=== PATIENT | female | born 1945 | race Caucasian/White ===

== ENCOUNTER → 2016-08-27 | Outpatient (CLI) | payer OTHER, MEDICAID ==
[2015-03-04 15:05] VITALS: BP 124/58
[~2016-08-27] MED LIST: ACET325T9 PO; AMIT25TA PO; AMLO10TA2 PO; ASPI-482 PO; ASPI81TA9 PO; Albuterol Sulfate NEB; BUPR1PAT TD; BUPR1PAT9 TD; Baclofen PO; CARV25TA2 PO; DICL100G7 TP; DOCU-27 PO; DULO30CA2 PO; DULO60CA6 PO; Doxycycline Hyclate PO; FURO-68 PO; Fentanyl TD; GABA-586 PO; GABA600T2 PO; Hydrochlorothiazide PO; LEVO500T38 PO; LIDO700A4 TD; LISI-334 PO; MAGN400T3 PO; METF10002 PO; MULT-208 PO; OXYC10TA PO; OXYC5TAB PO; OXYC5TAB88 PO; POTA10CA PO; Polyethylene Glycol 3350 PO; SENN-37 PO; TRIA1CAP PO; ZINC30OI TP
--- NOTE | 2016-08-27 11:09 | PAIN ---
DATE OF SERVICE: 08/27/2016 INITIAL CONSULTATION FOR PAIN CLINIC CHIEF COMPLAINT: Neck and bilateral shoulder and upper extremity pain. HISTORY OF PRESENT ILLNESS: This is a 70-year-old female who presents with history of pain for many years, gradually increasing, not a result of any specific injury or action she is aware of, did have cervical fusion from C3-C7 by her report many years ago. The patient is unsure of the timeframe, but has had significant pain now increasing over the past year, most specifically worse over the past few months. The patient reports no recent injury. She reports pain in the base of the neck, posterior upper back, shoulders bilaterally, worse on the right than the left, but radiating into the arm and hand with tingling and numbness sensations bilaterally, but worse on the right. She has been dropping items and having some tremors in the arms and hands too when the pain is at its worst and causing her to drop things as well. The patient reports it awakens her from sleep at least 5-6 times at night, does not affect her bowel or bladder control, does affect her ability to walk using a walker. She is unable to put much weight on her upper extremities as they are aching and hurting. The patient reports pain radiating into the mid upper back as well, which is better with some heat and massage techniques that she has been using. The patient is currently a resident of the [facility] after she had a hip surgery and is still rehabilitating there at this time. The patient reports the pain is constant and shooting in the bilateral upper extremities, also causes some headaches. The patient reports disability rating from 0 to 10 as a 9 with family and home responsibilities, recreation, social activity and occupation, 10 with sexual behavior, 10 with self care and life support activities. The patient has tried oxycodone as well as hydrocodone. Oxycodone does help, but it causes her to sleep, for sometimes 8-10 hours at a time. The patient has had no other formal therapies at this point, physical therapies or otherwise. The patient reports no complete loss of motor function, but does have significant fatigability of the right upper extremity and the left side with fine motor movements and use of the upper extremities. PAST MEDICAL HISTORY: Significant for type 2 diabetes; history of right breast cancer, status post radiation and chemotherapy; hypertension, arthritis, fibromyalgia, depression, stage II kidney disease. PREVIOUS SURGERY: Includes total knee on the right, mastectomy on the right, right hip fracture in 09/2015, bilateral cataract extractions and interbody fusion and cervical laminectomy C3 through C7. CURRENT MEDICATIONS: Well documented on the patient's chart and reviewed. ALLERGIES: The patient is allergic to ASPIRIN, TRAZODONE, DARVON, MORPHINE and SULFONAMIDES. FAMILY HISTORY: Significant for diabetes. SOCIAL HISTORY: The patient does not smoke, does not drink alcohol, is , currently staying at the [facility]. Her son, who lives in [place], is with her today and has been taking care of her when he can as well and is her power of staff attorney. REVIEW OF SYSTEMS: The patient's review of systems is positive for those items mentioned in history of present illness. All systems reviewed and otherwise negative. It is complete, full and well documented on the patient's chart. PHYSICAL EXAMINATION: VITAL SIGNS: Today, the patient's blood pressure is 132/66, pulse 70, respirations 20, temperature 98.2 degrees Fahrenheit, height is 5 feet 7 inches, weighs 179 pounds. GENERAL: The patient is awake, alert, oriented, appropriate, very pleasant demeanor. The patient initially sitting upright in a wheelchair. HEENT: Shows normocephalic and atraumatic. Extraocular movements are intact and symmetrical. Oral cavity shows mucous membranes moist and pink. NECK: Shows anterior throat supple without palpable lymphadenopathy noted. Swallow reflex is symmetrical. CHEST: Shows normal on inspection. Breath sounds clear to auscultation bilaterally. HEART: Shows S1 and S2 clear. ABDOMEN: Soft, nontender, nondistended. BACK: The patient's back shows spine grossly in the midline. Normal-appearing cervical lordotic curvature, thoracic kyphotic curvature, and lumbar lordotic curvature. Cervical paraspinous musculature shows some moderate tenderness throughout the upper, middle and lower distribution of paraspinous muscles bilaterally as well as superior, medial and lateral trapezius somewhat more tender on the right than the left, but symmetrical without evidence of atrophy, hypertrophy, no trigger points, no radiation of pain, very firm, tender musculature throughout the rhomboid distribution bilaterally as well as supra and infrascapular regions and the upper thoracic distribution of the paraspinous muscles diffusely tender again. No specific trigger points or radiation demonstrated. The patient has significantly limited rotational motion of the cervical spine, less than 10 degrees right and left with pain reported with all rotation and motion, especially extension and as well as forward flexion which is limited to only about 30 degrees and about 10 degrees with extension secondary to pain. Upper extremities showed deep tendon reflexes at 1+ in the biceps and triceps tendons and are equal. Motor exam is approximately 4 on a scale of 5 with medication aid strength, but is symmetrical and is 4/5 with biceps and triceps flexion, but is intact and strong bilaterally. Shoulder shrug is strong with pain reported with resistance, but no loss of strength. Abduction of the shoulder to 90 degrees is completed without significant difficulty abducting to 90 degrees, but with significant pain reported more on the right shoulder than the left with resistance, but no loss of strength on resistance. Peripheral pulses are 1+ in the radial distribution bilaterally. The patient has significant lymphedema of the right forearm and hand compared to the left from previous breast surgery on the right. IMPRESSION: 1. This is a 70-year-old female with a long history of neck, bilateral upper extremity pain, status post lumbar fusion multilevel as documented and radicular pain in the bilateral upper extremities, right greater than left. 2. MRI scan of the cervical spine showing diffuse narrowing throughout distal recess stenosis, on the left at C5-C6, on the right at C6-C7 and C4-C5, stenosis at T1. Multilevel anterior fusion C3 through C7 with interbody fusion at these levels and multiple neural foraminal compromise as well. 3. Type 2 diabetes. 4. History of breast cancer. 5. Hypertension. 6. Arthritis. PLAN: Options were discussed with the patient and the patient's son, who accompanied her to the visit today and we discussed interventional techniques for physical therapies, medication management. She would like to try interventional techniques. We discussed a cervical epidural steroid injection using description as well as anatomical models to describe the procedure. The patient would like to proceed with this. We will wait for preauthorization with her insurance provider. We will try Medrol Dosepak orally in the meantime. The patient was given instruction as well as side effects to be aware with medication. Also, I discussed this with her son and wrote the medicine and instructions for the [facility] as well. The patient will return to clinic once preauthorization is obtained and we will plan on cervical epidural steroid injection at that time. JAQUELINE FULLER MD DR: Haven JOB#: [id number] / [id number]
== END | disposition home or self-care (01) ==
LOC: PNCL 08:15
PROVIDERS: ATTEND Anesthesiology
DX: M25.512 Pain in left shoulder (principal); M25.511 Pain in right shoulder
CPT/HCPCS: G0463

== ENCOUNTER 2016-11-20 18:32 | Inpatient (IN) | payer OTHER ==
[~2016-11-20] VITALS: Ht 170.2 cm; Wt 71.4 kg
[~2016-11-20 18:32] MED LIST changes: +CARV6.252 PO; +CIPR250T30 PO; +DOCU100C5 PO; +NYST60PO TP; +OXYC5CAP3 PO
[2016-11-20 20:11] LABS: BASO # 0.1 x10^3/uL (0.0-0.2); BASO % 1 % (0-3); EOS % 0 % (0-3); HEMATOCRIT 41.9 % (36.0-47.0); HEMOGLOBIN 13.4 g/dL (12.0-15.5); LYMPH # 0.8 x10^3/uL (1.0-4.8); LYMPH % 8 % (24-48); MEAN CORPUSCULAR HEMOGLOBIN 26 pg (25-35); MEAN CORPUSCULAR HGB CONC 32 g/dL (31-37); MEAN CORPUSCULAR VOLUME 82 fL (79-100); MONO % 9 % (0-9); NEUT % 82 % (31-73); PLATELET COUNT 173 x10^3/uL (140-400); RED BLOOD COUNT 5.11 x10^6/uL (3.50-5.40); RED CELL DISTRIBUTION WIDTH 16.2 % (11.5-14.5)
[2016-11-20 20:12] LABS: BILIRUBIN,URINE NEGATIVE (NEG); GLUCOSE,URINE NEGATIVE (NEG); NITRITE,URINE NEGATIVE (NEG); PROTEIN,URINE 30 mg/dL (NEG-TRACE); UROBILINOGEN,URINE 0.2 mg/dL (0.2 mg/dL)
[2016-11-20 20:18] LABS: BACTERIA,URINE MANY /HPF (0-FEW); SQUAMOUS EPITHELIAL CELL,UR MANY /LPF
[2016-11-20 20:22] LABS: CALCIUM 9.1 mg/dL (8.5-10.1); CREATININE 0.9 mg/dL (0.6-1.0); GFR 61.5; POTASSIUM 4.9 mmol/L (3.5-5.1)
[2016-11-20 20:28] LABS: ALBUMIN 2.8 g/dL (3.4-5.0); ALBUMIN/GLOBULIN RATIO 0.7 (1.0-1.7); TOTAL BILIRUBIN 0.7 mg/dL (0.2-1.0); TOTAL PROTEIN 6.6 g/dL (6.4-8.2)
[2016-11-20] MEDS ORDERED: CEFTRIAXONE 1GM IVPB FOR OMNI 50 ML IV ONE (21:30)
--- NOTE | 2016-11-20 21:49 | ED.ADGEN ---
Past Medical History Past Medical History: Cancer, Diabetes-Type II, High Cholesterol, Hypertension , [place], Other Additional Past Medical Histor: BREAST CA Past Surgical History: Hysterectomy, Other Additional Past Surgical Histo: BREAST LUMPECTOMY LEFT, TWO NECK SURGERIES Alcohol Use: None Drug Use: None Adult General Chief Complaint Chief Complaint: ABDOMINAL PAIN HPI HPI Patient is a 70 year old female presents emergency Department accompanied by her family. She is been recently diagnosed with a pneumonia. She has completed her course of antibiotics but continues to require oxygen to experience dyspnea. Patient also reports that she is had a month-long history of diffuse abdominal pain. She denies any fevers, chills, nausea, vomiting. She denies constipation or diarrhea. Review of Systems Review of Systems Constitutional: Denies fever or chills. [] Eyes: Denies change in visual acuity. [] HENT: Denies nasal congestion or sore throat. [] Respiratory: Denies cough or shortness of breath. [] Cardiovascular: Denies chest pain or edema. [] GI: Denies abdominal pain, nausea, vomiting, bloody stools or diarrhea. [] : Denies dysuria. [] Musculoskeletal: Denies back pain or joint pain. [] Integument: Denies rash. [] Neurologic: Denies headache, focal weakness or sensory changes. [] Endocrine: Denies polyuria or polydipsia. [] Lymphatic: Denies swollen glands. [] Psychiatric: Denies depression or anxiety. [] Current Medications Current Medications Current Medications Medications (Trade) Dose Ordered Sig/Kianna Start Time Stop Time Status Last Admin Dose Admin Ceftriaxone Sodium (Rocephin 1gm Ivpb For Omni) 50 ml @ 100 mls/hr 1X ONCE 11/20/16 21:30 11/20/16 21:59 11/20/16 21:23 100 MLS/HR Oxycodone/ Acetaminophen (Percocet 10/325) 1 tab 1X ONCE 11/20/16 22:00 11/20/16 22:01 Allergies Allergies Allergies Coded Allergies Type Severity Reaction Last Updated Verified Sulfa (Sulfonamide Antibiotics) Allergy Intermediate 04/19/14 Yes aspirin Allergy Intermediate 02/24/15 Yes morphine Allergy Intermediate 02/24/15 Yes trazodone Allergy Intermediate 02/24/15 Yes I S O L A T I O N *CONTACT* Allergy Unknown 09/09/16 Yes Physical Exam Physical Exam Constitutional: Well developed, well nourished, no acute distress, non-toxic appearance. [] HENT: Normocephalic, atraumatic, bilateral external ears normal, oropharynx moist, no oral exudates, nose normal. [] Eyes: PERRLA, EOMI, conjunctiva normal, no discharge. [] Neck: Normal range of motion, no tenderness, supple, no stridor. [] Cardiovascular:Heart rate regular rhythm, no murmur [] Lungs & Thorax: Bilateral breath sounds diminished [] Abdomen: Bowel sounds normal, soft, fused tenderness to palpation without peritoneal signs, no masses, no pulsatile masses. [] Skin: Warm, dry, no erythema, no rash. [] Back: No tenderness, no CVA tenderness. [] Extremities: No tenderness, no cyanosis, no clubbing, ROM intact, no edema. [] Neurologic: Alert and oriented X 3, normal motor function, normal sensory function, no focal deficits noted. [] Psychologic: Affect normal, judgement normal, mood normal. [] Current Patient Data Vital Signs Vital Signs Date Time Temp Pulse Resp B/P Pulse Ox O2 Delivery O2 Flow Rate FiO2 11/20/16 19:09 97.7 75 18 147/84 94 Nasal Cannula 2 97.7 Lab Values Laboratory Tests Test 11/20/16 19:42 11/20/16 19:45 White Blood Count 10.0x10^3/uL (4.0-11.0) Red Blood Count 5.11x10^6/uL (3.50-5.40) Hemoglobin 13.4g/dL (12.0-15.5) Hematocrit 41.9% (36.0-47.0) Mean Corpuscular Volume 82fL (79-100) Mean Corpuscular Hemoglobin 26pg (25-35) Mean Corpuscular Hemoglobin Concent 32g/dL (31-37) Red Cell Distribution Width 16.2% (11.5-14.5) H Platelet Count 173x10^3/uL (140-400) Neutrophils (%) (Auto) 82% (31-73) H Lymphocytes (%) (Auto) 8% (24-48) L Monocytes (%) (Auto) 9% (0-9) Eosinophils (%) (Auto) 0% (0-3) Basophils (%) (Auto) 1% (0-3) Neutrophils # (Auto) 8.1x10^3uL (1.8-7.7) H Lymphocytes # (Auto) 0.8x10^3/uL (1.0-4.8) L Monocytes # (Auto) 0.9x10^3/uL (0.0-1.1) Eosinophils # (Auto) 0.0x10^3/uL (0.0-0.7) Basophils # (Auto) 0.1x10^3/uL (0.0-0.2) Sodium Level 134mmol/L (136-145) L Potassium Level 4.9mmol/L (3.5-5.1) Chloride Level 97mmol/L (98-107) L Carbon Dioxide Level 28mmol/L (21-32) Anion Gap 9 (6-14) Blood Urea Nitrogen 9mg/dL (7-20) Creatinine 0.9mg/dL (0.6-1.0) Estimated GFR (Cockcroft-Gault) 61.5 BUN/Creatinine Ratio 10 (6-20) Glucose Level 169mg/dL (70-99) H Calcium Level 9.1mg/dL (8.5-10.1) Total Bilirubin 0.7mg/dL (0.2-1.0) Aspartate Amino Transferase (AST) 28U/L (15-37) Alanine Aminotransferase (ALT) 20U/L (14-59) Alkaline Phosphatase 191U/L (46-116) H Troponin I Quantitative < 0.017ng/mL (0.000-0.055) NC-Gaf-N-Type Natriuretic Peptide 5567pg/mL (0-124) H Total Protein 6.6g/dL (6.4-8.2) Albumin 2.8g/dL (3.4-5.0) L Albumin/Globulin Ratio 0.7 (1.0-1.7) L Lipase 84U/L (73-393) Urine Collection Type Unknown Urine Color Yellow Urine Clarity Cloudy Urine pH 7.0 Urine Specific [place] 1.010 Urine Protein 30mg/dL (NEG-TRACE) Urine Glucose (UA) Negativemg/dL (NEG) Urine Ketones (Stick) Negativemg/dL (NEG) Urine Blood Moderate (NEG) Urine Nitrite Negative (NEG) Urine Bilirubin Negative (NEG) Urine Urobilinogen Dipstick 0.2mg/dL (0.2 mg/dL) Urine Leukocyte Esterase Large (NEG) Urine RBC 1-2/HPF (0-2) Urine WBC 5-10/HPF (0-4) Urine Squamous Epithelial Cells Many/LPF Urine Bacteria Many/HPF (0-FEW) Laboratory Tests 11/20/16 19:42 Laboratory Tests 11/20/16 19:42 EKG EKG [] Radiology/Procedures Radiology/Procedures Chest x-ray interpreted by me, bilateral effusions right worse than left. These are new from previous studies. [] Course & Med Decision Making Course & Med Decision Making Pertinent Labs and Imaging studies reviewed. (See chart for details) Patient has new heart failure as well as urinary tract infection. She has been given Rocephin for her infection. We will admit her to the hospital and consult cardiology for her heart failure and effusions. I have spoken with Dr. Gama regarding this patient. [] Dragon Disclaimer Dragon Disclaimer This electronic medical record was generated, in whole or in part, using a voice recognition dictation system. JOHN PAUL NELSON MD Nov 20, 2016 21:49
[2016-11-20] MEDS ORDERED: OXYCODONE/APAP 10/325 TABLET. PO ONE (22:00)
[2016-11-20 22:45] VITALS: BP 168/89
[2016-11-20] MEDS: IPRATRPIUM/ALBUTEROL 0.5/2.5MG 3 ML NEBU. NEB SCH (23:14)
[2016-11-20 23:28] VITALS: BP 162/77
--- NOTE | 2016-11-21 00:27 | ACF ---
Admit Criteria Forms Admit Criteria Forms Admit Criteria Forms HEART FAILURE: COMMON COMPLICATIONS Clinical Indications for Inpatient Care (Place 'X' for any and all applicable criteria): Ongoing inpatient care may be indicated for heart failure with ANY ONE of the following (1)(2)(3)(4)(5): [ ]I. Ongoing need for care for primary condition requiring frequent therapy adjustments because of changes in cardiac function (eg, drug dosage changes for drugs that are renally metabolized) [X]II. New-onset heart failure [ ]III. Heart failure with decreased urine output not responsive to attempts to optimize volume status [ ]IV. Acute cardiac ischemia causing or associated with failure [ ]V. Complications of heart failure, including ANY ONE of the following: [ ]a) Pericardial effusion [ ]b) Symptomatic pleural effusion [ ]c) O2 saturation <90% or PO2 < 60 mm Hg (8.0 kPa) on room air or require baseline supplemental O2 [ ]d) Tachypnea [ ]e) Dyspnea [ ]f) Syncope [ ]g) Change in mental status [ ]h) Acute renal insufficiency that is severe (reduction of more than 50% in estimated glomerular filtration rate from baseline) or progressive reduction of more than 25% in estimated glomerular filtration rate from baseline, with creatinine continuing to rise) [ ]i) Hemodynamic instability [ ]j) Anasarca [ ]k) Clinically significant metabolic abnormalities due to heart failure (eg, new-onset metabolic acidosis) Extended stay beyond goal length of stay for primary condition may be needed until ALL of the following are present(1)(3): [ ]a) Stable and effective diuretic regimen established (or patient on stable dialysis regimen if in chronic renal failure) [ ]b) Breathing comfortably at rest [ ]c) Saturation of arterial oxygen greater than 90% or at acceptable baseline [ ]d) Pulmonary edema absent or improved [ ]e) Hemodynamic stability [ ]f) Volume status acceptable on oral medication [ ]g) Peripheral or sacral edema absent or improved [ ]h) Renal function stable and manageable at a lower level of care [ ]i) Complications (eg, pleural effusion) resolved or manageable at a lower level of care [ ]j) Patient or caregiver has received written discharge instructions or educational material addressing activity level, diet, discharge medications, follow-up appointment, weight monitoring, and what to do if symptoms worsen The original [employer] content created by Dmitry Murphy has been revised. The portions of the content which have been revised are identified through the use of italic text or in bold, and Dmitry Murphy has neither reviewed nor approved the modified material.All other unmodified content is copyright Dmitry Murphy. Please see references footnoted in the original [facility] edition 2016 ONIEL MARY Nov 21, 2016 00:27
[2016-11-21 03:26] VITALS: BP 135/77
[2016-11-21 07:38] VITALS: BP 152/78
[2016-11-21] MEDS: OXYCODONE IR 5 MG TABLET. PO SCH ×2 (07:43→14:18)
[2016-11-21] MEDS: IPRATRPIUM/ALBUTEROL 0.5/2.5MG 3 ML NEBU. NEB SCH ×4 (07:49→20:46)
--- NOTE | 2016-11-21 08:35 | RAD ---
EXAM: Chest, lateral view; abdomen acute complete. HISTORY: Dyspnea. COMPARISON: 09/07/2016. FINDINGS: A frontal upright view of the chest and frontal upright and supine views of the abdomen and a lateral view of the chest are obtained. There are moderate right and small left pleural effusions. There is bilateral lower lobe atelectasis or infiltrate. The heart is upper normal in size. There is no pneumothorax. There is cervical spinal fusion instrumentation. There are right axillary clips. There is gas within the stomach and nondistended loops of small and large bowel. There is no transition point to suggest obstruction. There is no intraperitoneal free air. There is an approximately 4.0 cm radio density overlying the right upper quadrant, best seen on the abdomen upright view. There is no correlate on prior studies, favoring artifact overlying the patient rather than pulmonary or hepatic calcification. IMPRESSION: 1. Moderate right and small left pleural effusions with lower lobe infiltrate or atelectasis. 2. Nonobstructive bowel gas pattern.
[2016-11-21 10:18] VITALS: BP 166/65
--- NOTE | 2016-11-21 10:23 | PDOC ---
GENERAL General: see dictated H&P. Problems: VITAL SIGNS Vital Signs: Vital Signs Date Time Temp Pulse Resp B/P Pulse Ox O2 Delivery O2 Flow Rate FiO2 11/21/16 08:43 18 95 Nasal Cannula 3.0 11/21/16 07:38 97.7 80 152/78 97.7 I & O I & O Intake and Output 11/21/16 06:59 Intake Total 100 ml Output Total 1050 ml Balance -950 ml Intake Oral 50 ml IV Total 50 ml Output Urine Total 1050 ml # Bowel Movements 2 ALLERGIES Allergies: Allergies Coded Allergies Type Severity Reaction Last Updated Verified Sulfa (Sulfonamide Antibiotics) Allergy Intermediate 04/19/14 Yes aspirin Allergy Intermediate 02/24/15 Yes morphine Allergy Intermediate 02/24/15 Yes trazodone Allergy Intermediate 02/24/15 Yes I S O L A T I O N *CONTACT* Allergy Unknown 09/09/16 Yes MEDS Medications: Current Medications Medications (Trade) Dose Ordered Sig/Kianna Start Time Stop Time Status Last Admin Dose Admin Albuterol/ Ipratropium (Duoneb) 3 ml RTQID 11/21/16 08:00 11/21/16 07:49 3 ML Ceftriaxone Sodium (Rocephin 1gm Ivpb For Omni) 50 ml @ 100 mls/hr 1X ONCE 11/20/16 21:30 11/20/16 21:59 DC 11/20/16 21:23 100 MLS/HR Oxycodone HCl (Roxicodone) 5 mg BID 11/21/16 09:00 11/21/16 07:43 5 MG Oxycodone/ Acetaminophen (Percocet 10/325) 1 tab 1X ONCE 11/20/16 22:00 11/20/16 22:01 DC 11/20/16 22:11 1 TAB LAB Lab: Laboratory Tests Test 11/20/16 19:42 11/20/16 19:45 White Blood Count 10.0x10^3/uL (4.0-11.0) Red Blood Count 5.11x10^6/uL (3.50-5.40) Hemoglobin 13.4g/dL (12.0-15.5) Hematocrit 41.9% (36.0-47.0) Mean Corpuscular Volume 82fL (79-100) Mean Corpuscular Hemoglobin 26pg (25-35) Mean Corpuscular Hemoglobin Concent 32g/dL (31-37) Red Cell Distribution Width 16.2% (11.5-14.5) Platelet Count 173x10^3/uL (140-400) Neutrophils (%) (Auto) 82% (31-73) Lymphocytes (%) (Auto) 8% (24-48) Monocytes (%) (Auto) 9% (0-9) Eosinophils (%) (Auto) 0% (0-3) Basophils (%) (Auto) 1% (0-3) Neutrophils # (Auto) 8.1x10^3uL (1.8-7.7) Lymphocytes # (Auto) 0.8x10^3/uL (1.0-4.8) Monocytes # (Auto) 0.9x10^3/uL (0.0-1.1) Eosinophils # (Auto) 0.0x10^3/uL (0.0-0.7) Basophils # (Auto) 0.1x10^3/uL (0.0-0.2) Sodium Level 134mmol/L (136-145) Potassium Level 4.9mmol/L (3.5-5.1) Chloride Level 97mmol/L (98-107) Carbon Dioxide Level 28mmol/L (21-32) Anion Gap 9 (6-14) Blood Urea Nitrogen 9mg/dL (7-20) Creatinine 0.9mg/dL (0.6-1.0) Estimated GFR (Cockcroft-Gault) 61.5 BUN/Creatinine Ratio 10 (6-20) Glucose Level 169mg/dL (70-99) Calcium Level 9.1mg/dL (8.5-10.1) Total Bilirubin 0.7mg/dL (0.2-1.0) Aspartate Amino Transf (AST/SGOT) 28U/L (15-37) Alanine Aminotransferase (ALT/SGPT) 20U/L (14-59) Alkaline Phosphatase 191U/L (46-116) Troponin I Quantitative < 0.017ng/mL (0.000-0.055) DZ-Xos-S-Type Natriuretic Peptide 5567pg/mL (0-124) Total Protein 6.6g/dL (6.4-8.2) Albumin 2.8g/dL (3.4-5.0) Albumin/Globulin Ratio 0.7 (1.0-1.7) Lipase 84U/L (73-393) Urine Collection Type Unknown Urine Color Yellow Urine Clarity Cloudy Urine pH 7.0 Urine Specific [place] 1.010 Urine Protein 30mg/dL (NEG-TRACE) Urine Glucose (UA) Negativemg/dL (NEG) Urine Ketones (Stick) Negativemg/dL (NEG) Urine Blood Moderate (NEG) Urine Nitrite Negative (NEG) Urine Bilirubin Negative (NEG) Urine Urobilinogen Dipstick 0.2mg/dL (0.2 mg/dL) Urine Leukocyte Esterase Large (NEG) Urine RBC 1-2/HPF (0-2) Urine WBC 5-10/HPF (0-4) Urine Squamous Epithelial Cells Many/LPF Urine Bacteria Many/HPF (0-FEW) RYAN PALMER MD Nov 21, 2016 10:23
[2016-11-21] MEDS ORDERED: ACETAMINOPHEN 325 MG TABLET. PO PRN (10:30)
[2016-11-21] MEDS ORDERED: DOCUSATE SODIUM 100 MG CAPSULE. PO PRN (10:30)
[2016-11-21] MEDS: FUROSEMIDE 40 MG/4 ML VIAL. IVP SCH (11:02)
[2016-11-21] MEDS: AMLODIPINE BESYLATE 5 MG TABLET. PO SCH (11:03)
[2016-11-21] MEDS: LISINOPRIL 20 MG TABLET PO SCH (11:03)
[2016-11-21] MEDS: MULTIVITAMIN with MINERAL TABLET. PO SCH (11:03)
[2016-11-21] MEDS: DULOXETINE HCL 30 MG CAPSULE.DR. PO SCH (11:03)
[2016-11-21] MEDS: METFORMIN 500 MG TABLET. PO SCH (11:03)
--- NOTE | 2016-11-21 12:39 | PDOC2 ---
CONSULT Date of Consult Date of Consult DATE: 11/21/16 TIME: 12:30 Reason for Consult Reason for Consult: heart failure Referring Physician Referring Physician: Dr. Gama Identification/Chief Complaint Chief Complaint abdominal and epigastric pain Source Source: Patient History of Present Illness Reason for Visit: The patient is a 71-year-old female reports several weeks of increasing upper abdominal and epigastric discomfort. She also reports some episodes of increasing shortness of breath. He reports to have been treated as an outpatient for pneumonia but her symptoms have continued. Chest x-ray shows a moderate right sided and small left-sided pleural effusion with lower lobe infiltrates. Abdominal series show a nonobstructive gas pattern. Lab testing shows a normal troponin but an elevated BNP at 5567. The patient states she is feeling somewhat better today than yesterday. She is having no chest discomfort but does continue to report abdominal discomfort. Of note the patient had a Lexiscan nuclear stress test in 2013 at showed an ejection fraction of greater than 60%, no reversible ischemia and a possible small apical infarct. Past Medical History Cardiovascular: CAD, PA, Hyperlipidemia Pulmonary: Pneumonia Heme/Onc: Cancer Past Surgical History Past Surgical History: Hysterectomy, Other (breast lumpectomy and neck surgery. ) Family History Family History: Heart Disease Social History No Current Problem List Problem List Problems Medical Problems: (1) Heart failure Status: Acute (2) UTI (urinary tract infection) Status: Acute Current Medications Current Medications Current Medications Ceftriaxone Sodium (Rocephin 1gm Ivpb For Omni) 50 ml @ 100 mls/hr 1X ONCE IV Last administered on 11/20/16 21:23; Start 11/20/16 at 21:30; Stop 11/20/16 at 21:59; Status DC Oxycodone/ Acetaminophen (Percocet 10/325) 1 tab 1X ONCE PO Last administered on 11/20/16 22:11; Start 11/20/16 at 22:00; Stop 11/20/16 at 22:01; Status DC Albuterol/ Ipratropium (Duoneb) 3 ml RTQID NEB Last administered on 11/21/16 11 :51; Start 11/21/16 at 08:00 Oxycodone HCl (Roxicodone) 5 mg BID PO Last administered on 11/21/16 07:43; Start 11/21/16 at 09:00 Acetaminophen (Tylenol) 325 mg PRN Q6HRS PRN PO MILD PAIN / TEMP; Start at 10:30 Amlodipine Besylate (Norvasc) 5 mg DAILY PO Last administered on 11/21/16 11:03 ; Start 11/21/16 at 12:00 Carvedilol (Coreg) 6.25 mg BIDWMEALS PO ; Start 11/21/16 at 17:00 Diclofenac Sodium (Voltaren) 2 francisco j QID TP ; Start 11/21/16 at 13:00 Docusate Sodium (Colace) 100 mg PRN DAILY PRN PO CONSTIPATION; Start 11/21/16 at 10:30 Lisinopril (Prinivil) 20 mg DAILY PO Last administered on 11/21/16 11:03; Start 11/21/16 at 12:00 Magnesium Oxide (Magnesium Oxide) 400 mg TID PO ; Start 11/21/16 at 14:00 Metformin HCl (Glucophage) 500 mg DAILYWBKFT PO Last administered on 11/21/16 11:03; Start 11/21/16 at 12:00 Duloxetine HCl (Cymbalta) 60 mg DAILY PO Last administered on 11/21/16 11:03; Start 11/21/16 at 12:00 Gabapentin (Neurontin) 300 mg TID PO ; Start 11/21/16 at 14:00 Multivitamins (Thera M Plus) 1 tab DAILY PO Last administered on 11/21/16 11:03 ; Start 11/21/16 at 12:00 Furosemide (Lasix) 40 mg DAILY IVP Last administered on 11/21/16 11:02; Start 11/21/16 at 11:00 Active Scripts Active Cipro (Ciprofloxacin Hcl) 250 Mg Tablet 1 Tab PO BID Oxycodone Hcl 5 Mg Capsule 1 Cap PO BID Carvedilol 6.25 Mg Tablet 1 Tab PO BID Amlodipine Besylate 10 Mg Tablet 5 Mg PO DAILY 30 Days Metformin Hcl 1,000 Mg Tablet 500 Mg PO DAILY 30 Days Tylenol (Acetaminophen) 325 Mg Tablet 325 Mg PO PRN Q6HRS PRN Reported Docusate Sodium 100 Mg Capsule 1 Cap PO DAILY PRN Voltaren (Diclofenac Sodium) 100 Gm Gel..gram. 2 Gm TP QID Multi-Day Vitamins (Multivitamin) 1 Each Tablet 1 Tab PO DAILY Magnesium Oxide 400 Mg Tablet 2 Tab PO TID Gabapentin 300 Mg Capsule 300 Mg PO TID Cymbalta (Duloxetine Hcl) 60 Mg Capsule. 1 Cap PO DAILY Lisinopril 20 Mg Tablet 20 Mg PO Allergies Allergies: Coded Allergies: Sulfa (Sulfonamide Antibiotics) (Verified Allergy, Intermediate, 04/19/14) aspirin (Verified Allergy, Intermediate, 02/24/15) morphine (Verified Allergy, Intermediate, 02/24/15) trazodone (Verified Allergy, Intermediate, 02/24/15) I S O L A T I O N *CONTACT* (Verified Allergy, Unknown, 09/09/16) mrsa ROS General: YES: Fatigue Respiratory: YES: SOB with excertion, Shortness of breath Gastrointestinal: Yes Abdominal Pain Physical Exam General: mild distress Lungs: Other (decreased breath sounds.) Heart: Regular rate Abdomen: Normal bowel sounds Extremities: No clubbing Vitals VITALS Vital Signs Date Time Temp Pulse Resp B/P Pulse Ox O2 Delivery O2 Flow Rate FiO2 11/21/16 11:51 Nasal Cannula 3.0 11/21/16 11:03 81 166/65 11/21/16 10:18 98.1 20 92 98.1 Labs Labs Laboratory Tests Test 11/20/16 19:42 11/20/16 19:45 White Blood Count 10.0x10^3/uL (4.0-11.0) Red Blood Count 5.11x10^6/uL (3.50-5.40) Hemoglobin 13.4g/dL (12.0-15.5) Hematocrit 41.9% (36.0-47.0) Mean Corpuscular Volume 82fL (79-100) Mean Corpuscular Hemoglobin 26pg (25-35) Mean Corpuscular Hemoglobin Concent 32g/dL (31-37) Red Cell Distribution Width 16.2% (11.5-14.5) Platelet Count 173x10^3/uL (140-400) Neutrophils (%) (Auto) 82% (31-73) Lymphocytes (%) (Auto) 8% (24-48) Monocytes (%) (Auto) 9% (0-9) Eosinophils (%) (Auto) 0% (0-3) Basophils (%) (Auto) 1% (0-3) Neutrophils # (Auto) 8.1x10^3uL (1.8-7.7) Lymphocytes # (Auto) 0.8x10^3/uL (1.0-4.8) Monocytes # (Auto) 0.9x10^3/uL (0.0-1.1) Eosinophils # (Auto) 0.0x10^3/uL (0.0-0.7) Basophils # (Auto) 0.1x10^3/uL (0.0-0.2) Sodium Level 134mmol/L (136-145) Potassium Level 4.9mmol/L (3.5-5.1) Chloride Level 97mmol/L (98-107) Carbon Dioxide Level 28mmol/L (21-32) Anion Gap 9 (6-14) Blood Urea Nitrogen 9mg/dL (7-20) Creatinine 0.9mg/dL (0.6-1.0) Estimated GFR (Cockcroft-Gault) 61.5 BUN/Creatinine Ratio 10 (6-20) Glucose Level 169mg/dL (70-99) Calcium Level 9.1mg/dL (8.5-10.1) Total Bilirubin 0.7mg/dL (0.2-1.0) Aspartate Amino Transf (AST/SGOT) 28U/L (15-37) Alanine Aminotransferase (ALT/SGPT) 20U/L (14-59) Alkaline Phosphatase 191U/L (46-116) Troponin I Quantitative < 0.017ng/mL (0.000-0.055) GP-Oqx-E-Type Natriuretic Peptide 5567pg/mL (0-124) Total Protein 6.6g/dL (6.4-8.2) Albumin 2.8g/dL (3.4-5.0) Albumin/Globulin Ratio 0.7 (1.0-1.7) Lipase 84U/L (73-393) Urine Collection Type Unknown Urine Color Yellow Urine Clarity Cloudy Urine pH 7.0 Urine Specific [place] 1.010 Urine Protein 30mg/dL (NEG-TRACE) Urine Glucose (UA) Negativemg/dL (NEG) Urine Ketones (Stick) Negativemg/dL (NEG) Urine Blood Moderate (NEG) Urine Nitrite Negative (NEG) Urine Bilirubin Negative (NEG) Urine Urobilinogen Dipstick 0.2mg/dL (0.2 mg/dL) Urine Leukocyte Esterase Large (NEG) Urine RBC 1-2/HPF (0-2) Urine WBC 5-10/HPF (0-4) Urine Squamous Epithelial Cells Many/LPF Urine Bacteria Many/HPF (0-FEW) Laboratory Tests Test 11/20/16 19:42 11/20/16 19:45 White Blood Count 10.0x10^3/uL (4.0-11.0) Red Blood Count 5.11x10^6/uL (3.50-5.40) Hemoglobin 13.4g/dL (12.0-15.5) Hematocrit 41.9% (36.0-47.0) Mean Corpuscular Volume 82fL (79-100) Mean Corpuscular Hemoglobin 26pg (25-35) Mean Corpuscular Hemoglobin Concent 32g/dL (31-37) Red Cell Distribution Width 16.2% (11.5-14.5) Platelet Count 173x10^3/uL (140-400) Neutrophils (%) (Auto) 82% (31-73) Lymphocytes (%) (Auto) 8% (24-48) Monocytes (%) (Auto) 9% (0-9) Eosinophils (%) (Auto) 0% (0-3) Basophils (%) (Auto) 1% (0-3) Neutrophils # (Auto) 8.1x10^3uL (1.8-7.7) Lymphocytes # (Auto) 0.8x10^3/uL (1.0-4.8) Monocytes # (Auto) 0.9x10^3/uL (0.0-1.1) Eosinophils # (Auto) 0.0x10^3/uL (0.0-0.7) Basophils # (Auto) 0.1x10^3/uL (0.0-0.2) Sodium Level 134mmol/L (136-145) Potassium Level 4.9mmol/L (3.5-5.1) Chloride Level 97mmol/L (98-107) Carbon Dioxide Level 28mmol/L (21-32) Anion Gap 9 (6-14) Blood Urea Nitrogen 9mg/dL (7-20) Creatinine 0.9mg/dL (0.6-1.0) Estimated GFR (Cockcroft-Gault) 61.5 BUN/Creatinine Ratio 10 (6-20) Glucose Level 169mg/dL (70-99) Calcium Level 9.1mg/dL (8.5-10.1) Total Bilirubin 0.7mg/dL (0.2-1.0) Aspartate Amino Transf (AST/SGOT) 28U/L (15-37) Alanine Aminotransferase (ALT/SGPT) 20U/L (14-59) Alkaline Phosphatase 191U/L (46-116) Troponin I Quantitative < 0.017ng/mL (0.000-0.055) ZI-Gba-S-Type Natriuretic Peptide 5567pg/mL (0-124) Total Protein 6.6g/dL (6.4-8.2) Albumin 2.8g/dL (3.4-5.0) Albumin/Globulin Ratio 0.7 (1.0-1.7) Lipase 84U/L (73-393) Urine Collection Type Unknown Urine Color Yellow Urine Clarity Cloudy Urine pH 7.0 Urine Specific [place] 1.010 Urine Protein 30mg/dL (NEG-TRACE) Urine Glucose (UA) Negativemg/dL (NEG) Urine Ketones (Stick) Negativemg/dL (NEG) Urine Blood Moderate (NEG) Urine Nitrite Negative (NEG) Urine Bilirubin Negative (NEG) Urine Urobilinogen Dipstick 0.2mg/dL (0.2 mg/dL) Urine Leukocyte Esterase Large (NEG) Urine RBC 1-2/HPF (0-2) Urine WBC 5-10/HPF (0-4) Urine Squamous Epithelial Cells Many/LPF Urine Bacteria Many/HPF (0-FEW) Images Images Chest x-ray with a moderate right side and mild left-sided pleural effusion. Generalized lower lobe infiltrates. Abdominal series with a nonobstructive gas pattern. Assessment/Plan Assessment/Plan 1. Acute probable diastolic heart failure. BNP is elevated at 5567. Chest x-ray shows bilateral effusions as above. At this time with treat with diuretics with monitoring the patient's renal function. We'll check an echocardiogram. We'll continue other medications. 2. Atypical epigastric/chest pain. Troponins have been normal. Patient reports a history of probable coronary artery disease. Will complete a rule out infarction. Of note a Lexiscan test in 2013 showed normal LV function, no reversible ischemia and a possible small apical infarct. 3. Abdominal discomfort. No acute changes on chest x-ray. We'll continue present treatments. 4. Pleural effusions. We'll treat heart failure as noted above. In this time pneumonia may be a contributing factor. 5. Urinary tract infection. On antibiotics as above. Thank you for allowing us to participate in the care of your patient. TEREZA CAMEJO MD Nov 21, 2016 12:39
--- NOTE | 2016-11-21 13:00 | CARD ---
APPROVED REPORT EXAM: Two-dimensional and M-mode echocardiogram with Doppler and color Doppler. Other Information Quality : Good INDICATION Congestive Heart Failure 2D DIMENSIONS RVDd3.7 (2.9-3.5cm)Left Atrium(2D)3.6 (1.6-4.0cm) IVSd0.9 (0.7-1.1cm)Aortic Root(2D)2.2 (2.0-3.7cm) LVDd3.9 (3.9-5.9cm)LVOT Diameter2.0 (1.8-2.4cm) PWd0.8 (0.7-1.1cm)LVDs2.6 (2.5-4.0cm) FS (%) 60.0 %SV41.7 ml LVEF(%)60.0 (>50%) Mitral Valve MV E Zizribkr32.9cm/sMV DECEL [id number] MV A Ngzcdwoo46.6cm/sE/A Ratio1.7 TDI Lateral E' P. V9.20cm/sMedial E' P. V7.21cm/s E/Lateral E'8.9E/Medial E'11.4 Tricuspid Valve TR P. Vyrheuwe345kc/sRAP LXSESQJW8lfLf TR Peak Gr.[id number] LEFT VENTRICLE The left ventricle is normal size. There is normal left ventricular wall thickness. The left ventricu lar systolic function is normal and the ejection fraction is within normal range. The Ejection Fracti on is 55-60%. There is normal LV segmental wall motion. Transmitral Doppler flow pattern is Grade II- pseudonormal filling dynamics. RIGHT VENTRICLE The right ventricle is mildly dilated. Systolic function is mildly reduced. ATRIA The left atrium size is normal. The right atrium is mild to moderately dilated. The interatrial septu m is intact with no evidence for an atrial septal defect or patent foramen ovale as noted on 2-D or D oppler imaging. AORTIC VALVE The aortic valve is normal in structure and function. Doppler and Color Flow revealed no significant aortic regurgitation. There is no significant aortic valvular stenosis. MITRAL VALVE The mitral valve is calcified but opens well. There is no evidence of mitral valve prolapse. There is no mitral valve stenosis. Doppler and Color-flow revealed mild mitral regurgitation. TRICUSPID VALVE The tricuspid valve is normal in structure and function. Doppler and Color Flow revealed mild tricusp id regurgitation. The PA pressure was estimated at 60 mmHg. There is no tricuspid valve stenosis. PULMONIC VALVE The pulmonary valve is normal in structure and function. Doppler and Color Flow revealed trace pulmon ic valvular regurgitation. There is no pulmonic valvular stenosis. GREAT VESSELS The aortic root is normal in size. The ascending aorta is not well seen. The IVC is normal in size an d collapses <50% with inspiration. PERICARDIAL EFFUSION There is moderate left pleural effusion. There is no evidence of significant pericardial effusion. Critical Notification Critical Value: No <Conclusion> The left ventricle is normal size. The left ventricular systolic function is normal and the ejection fraction is within normal range. The Ejection Fraction is 55-60%. There is normal left ventricular wall thickness. Right ventricular systolic function is mildly reduced. The right atrium is mild to moderately dilated. There is no significant aortic valvular stenosis. Doppler and Color Flow revealed no significant aortic regurgitation. Doppler and Color-flow revealed mild mitral regurgitation. Doppler and Color Flow revealed mild tricuspid regurgitation. The PA pressure was estimated at 60 mmHg. There is moderate left pleural effusion. There is no evidence of significant pericardial effusion.
--- NOTE | 2016-11-21 13:07 | HP ---
ADMIT DATE: CHIEF COMPLAINT AND HISTORY OF PRESENT ILLNESS: This is a 71-year-old white female presented to the Emergency Room on the day of admission accompanied by her family. She had a history of recent pneumonia and completed antibiotics, was no better, was still requiring some oxygen as well as being short of breath as well as some little cough. She had also complained of abdominal pain over the last month or so with no change in urination or bowel movement and bitterly complains of neuropathy pain in both lower and upper extremities. PAST MEDICAL HISTORY: Remarkable for prior breast cancer, type 2 diabetes, hyperlipidemia, hypertension and coronary artery disease with prior MA. She has had a history of breast cancer with a breast lumpectomy, 2 neck surgeries, hysterectomy. She does wear a sleeve on her right arm for lymphedema following the breast surgery. MEDICATIONS: Brought with the patient, listed on the computer and have been addressed. ALLERGIES: INCLUDE SULFA, ASPIRIN, MORPHINE AND TRAZODONE. SOCIAL HISTORY: She is a nonsmoker, nondrinker, does not use drugs. FAMILY HISTORY: Noncontributory. REVIEW OF SYSTEMS: As mentioned above. PHYSICAL EXAMINATION: GENERAL: She is a well-developed, well-nourished white female who appears ill. VITAL SIGNS: Stable. She is afebrile. HEAD, EYES, EARS, NOSE AND THROAT: Unremarkable. She does have O2 of 3 liters per nasal cannula present. NECK: Supple, without thyromegaly. CHEST: Reveals diminished breath sounds bilaterally. HEART: Regular rate and rhythm without S3, S4 or murmur. ABDOMEN: Soft, nontender, without hepatosplenomegaly or mass. EXTREMITIES: Without cyanosis, clubbing or significant edema. NEUROLOGIC: Nonfocal. She is however little bit confused, telling me that she does not have diabetes and she does by history, I am not sure whether this is some dementia or whether she has some encephalopathic type features going on here. Laboratory workup remarkable for elevated BNP of 5567. Chest x-ray showing bilateral pleural effusions, consistent with probable some congestive heart failure, which is new for the patient. Urine showed evidence of urinary tract infection. IMPRESSION: Urinary tract infection with probable encephalopathy. New onset congestive heart failure, other problems as listed above. PLAN: The patient has been admitted. Cardiology has been consulted ____ ordered. Lasix will be given. INRs will be followed along with laboratory and the patient will be monitored, managed and treated appropriately. RYAN PALMER MD DR: Maynor JOB#: [id number] / [id number]
[2016-11-21] MEDS: MAGNESIUM OXIDE 400 MG TABLET PO SCH ×2 (14:11→21:22)
[2016-11-21] MEDS: GABAPENTIN 300 MG CAPSULE. PO SCH ×2 (14:11→21:22)
[2016-11-21] MEDS: DICLOFENAC SODIUM 1% TOPICAL GEL 100GM TUBE. TP SCH ×3 (14:12→21:30)
[2016-11-21 15:00] VITALS: BP 153/65
[2016-11-21] MEDS: CARVEDILOL 6.25 MG TABLET. PO SCH (17:05)
[2016-11-21 19:00] VITALS: BP 156/84
[2016-11-21] MEDS: NYSTATIN TOPICAL POWDER 15GM BOTTLE. TP SCH (21:29)
[2016-11-21 23:00] VITALS: BP 155/83
[2016-11-21] MEDS: OXYCODONE IR 5 MG TABLET. PO PRN (23:50)
[2016-11-22 03:50] VITALS: BP 154/80
[2016-11-22] MEDS: OXYCODONE IR 5 MG TABLET. PO SCH ×2 (04:13→21:17)
[2016-11-22 04:19] LABS: CALCIUM 9.7 mg/dL (8.5-10.1); CREATININE 0.8 mg/dL (0.6-1.0); GFR 70.3
[2016-11-22 04:25] LABS: MAGNESIUM 1.8 mg/dL (1.8-2.4)
[2016-11-22] MEDS ORDERED: IPRATRPIUM/ALBUTEROL 0.5/2.5MG 3 ML NEBU. NEB ONE (05:00)
[2016-11-22 07:19] VITALS: BP 165/79
[2016-11-22] MEDS: IPRATRPIUM/ALBUTEROL 0.5/2.5MG 3 ML NEBU. NEB SCH ×4 (08:00→20:05)
--- NOTE | 2016-11-22 08:40 | EKG ---
[facility] [address] [place] [address] Test Date: 2016-11-22 Test Time: 08:37:22 Pat Name: BILL KHAN Department: Room: 200 1 Gender: F Isotope Technician: RAMIRO : 1945 Requested By: TEREZA CAMEJO Order Number: [id number] Reading MD: Edenilson Culver Measurements Intervals [place] Rate: 92 P: 0 CT: 146 QRS: -16 QRSD: 102 T: 56 QT: 358 QTc: 448 Interpretive Statements SINUS RHYTHM LOW VOLTAGE Electronically Signed On 11-23-2016 10:09:17 CDT by Edenilson Culver
[2016-11-22] MEDS: MAGNESIUM OXIDE 400 MG TABLET PO SCH ×3 (09:52→21:17)
[2016-11-22] MEDS: GABAPENTIN 300 MG CAPSULE. PO SCH ×3 (09:52→21:16)
[2016-11-22] MEDS: AMLODIPINE BESYLATE 5 MG TABLET. PO SCH (09:53)
[2016-11-22] MEDS: LISINOPRIL 20 MG TABLET PO SCH (09:53)
[2016-11-22] MEDS: MULTIVITAMIN with MINERAL TABLET. PO SCH (09:53)
[2016-11-22] MEDS: DULOXETINE HCL 30 MG CAPSULE.DR. PO SCH (09:54)
[2016-11-22] MEDS: CARVEDILOL 6.25 MG TABLET. PO SCH ×2 (09:54→17:16)
[2016-11-22] MEDS: METFORMIN 500 MG TABLET. PO SCH (09:54)
[2016-11-22] MEDS: FUROSEMIDE 40 MG/4 ML VIAL. IVP SCH (09:56)
[2016-11-22] MEDS: NYSTATIN TOPICAL POWDER 15GM BOTTLE. TP SCH ×2 (09:56→21:20)
[2016-11-22] MEDS: DICLOFENAC SODIUM 1% TOPICAL GEL 100GM TUBE. TP SCH ×4 (09:57→21:19)
[2016-11-22] MEDS: OXYCODONE IR 5 MG TABLET. PO PRN ×2 (10:05→14:17)
[2016-11-22 10:55] VITALS: BP 150/89
--- NOTE | 2016-11-22 11:26 | PDOC ---
CARDIO Progress Notes Date and Time Date of Service 11/22/2016 Time of Evaluation 1030 Subjective Subjective: No Chest Pain, No shortness of breath, No Palpitations, No Dizziness, Other (transferring [place] [facility] [place] or difficulty but is having low back pain, abd pain better. ) Vitals Vitals Vital Signs Date Time Temp Pulse Resp B/P Pulse Ox O2 Delivery O2 Flow Rate FiO2 11/22/16 11:20 16 89 Nasal Cannula 3.0 11/22/16 10:55 97.9 87 150/89 97.9 Weight Weight [ ] Input and Output Intake and Output Intake and Output 11/22/16 07:00 Intake Total 1710 ml Output Total 5075 ml Balance -3365 ml Intake Oral 1710 ml Output Urine Total 5075 ml Laboratory Labs Laboratory Tests Test 11/22/16 03:40 Sodium Level 139mmol/L (136-145) Potassium Level 4.0mmol/L (3.5-5.1) Chloride Level 100mmol/L (98-107) Carbon Dioxide Level 32mmol/L (21-32) Anion Gap 7 (6-14) Blood Urea Nitrogen 9mg/dL (7-20) Creatinine 0.8mg/dL (0.6-1.0) Estimated GFR (Cockcroft-Gault) 70.3 Glucose Level 117mg/dL (70-99) Calcium Level 9.7mg/dL (8.5-10.1) Magnesium Level 1.8mg/dL (1.8-2.4) Troponin I Quantitative < 0.017ng/mL (0.000-0.055) Triglycerides Level 52mg/dL (0-150) Cholesterol Level 129mg/dL (0-200) LDL Cholesterol, Calculated 76mg/dL (0-100) VLDL Cholesterol, Calculated 10mg/dL (0-40) HDL Cholesterol 43mg/dL (40-60) Cholesterol/HDL Ratio 3.0 Microbiology Micro Microbiology 11/20/16 Urine Culture - Preliminary, Resulted 11/20/16 Urine Culture Result 1 (DIRK) - Preliminary, Resulted Physical Exam HEENT: Neck Supple W Full Motion Chest: Symmetric LUNGS: Other (basilar crackles) Heart: S1S2, RRR (SR) Abdomen: Soft N/T Extremities: No Calf Tenderness, Other (2+ bilateral LE pitting edema; right arm chronic lymphedema) Neurology: alert, oriented, follow commands Assessment Assessment 1. Acute diastolic CHF: EF 55-60% with normal LV systolic function. Compensated. Could not ascertain controlled HTN but recent pneumonia and likely RONAL are contributors. 2. CAD?: MPI 2013 showed possible small apical infarct. Troponin normal, CP free. 3. Severe pulmonary HTN: PAP 60 mmHg, No prior hx of COPD. RONAL?. 4. HTN: mildly labile 5. DM2/HLP: controlled 6. UTI with recent hx of pneumonia. Recommendations 1. Recommend outpt RONAL workup if none done. 2. >3L diurese overnight. Change to po lasix starting tomorrow. 3. Continue with lisinopril/coreg. Increase norvasc. 4. Allergy to ASA, if CAD then would recommend plavix. ANTHONY [employer]EC[employer]IVE Nov 22, 2016 11:26
[2016-11-22 15:00] VITALS: BP 148/84
--- NOTE | 2016-11-22 16:54 | PDOC ---
GENERAL General: vss and afebrile. O>>>I. abdominal pain better. echo ok. cardiology input appreciated. continue diuresis and follow electrolyes. Problems: VITAL SIGNS Vital Signs: Vital Signs Date Time Temp Pulse Resp B/P Pulse Ox O2 Delivery O2 Flow Rate FiO2 11/22/16 16:02 Nasal Cannula 3.0 11/22/16 15:18 94 11/22/16 11:20 16 11/22/16 10:55 97.9 87 150/89 97.9 I & O I & O Intake and Output 11/22/16 07:00 Intake Total 1710 ml Output Total 5075 ml Balance -3365 ml Intake Oral 1710 ml Output Urine Total 5075 ml ALLERGIES Allergies: Allergies Coded Allergies Type Severity Reaction Last Updated Verified Sulfa (Sulfonamide Antibiotics) Allergy Intermediate 04/19/14 Yes aspirin Allergy Intermediate 02/24/15 Yes morphine Allergy Intermediate 02/24/15 Yes trazodone Allergy Intermediate 02/24/15 Yes I S O L A T I O N *CONTACT* Allergy Unknown 09/09/16 Yes MEDS Medications: Current Medications Medications (Trade) Dose Ordered Sig/Kianna Start Time Stop Time Status Last Admin Dose Admin Acetaminophen (Tylenol) 325 mg PRN Q6HRS PRN 11/21/16 10:30 Albuterol/ Ipratropium (Duoneb) 3 ml 1X ONCE 11/22/16 05:00 11/22/16 05:01 DC 11/22/16 04:30 3 ML Amlodipine Besylate (Norvasc) 10 mg DAILY 11/23/16 09:00 Carvedilol (Coreg) 6.25 mg BIDWMEALS 11/21/16 17:00 11/22/16 09:54 6.25 MG Ceftriaxone Sodium (Rocephin 1gm Ivpb For Omni) 50 ml @ 100 mls/hr 1X ONCE 11/20/16 21:30 11/20/16 21:59 DC 11/20/16 21:23 100 MLS/HR Diclofenac Sodium (Voltaren) 2 francisco j QID 11/21/16 13:00 11/22/16 09:57 2 FRANCISCO J Docusate Sodium (Colace) 100 mg PRN DAILY PRN 11/21/16 10:30 Duloxetine HCl (Cymbalta) 60 mg DAILY 11/21/16 12:00 11/22/16 09:54 60 MG Furosemide (Lasix) 40 mg DAILY 11/23/16 09:00 Gabapentin (Neurontin) 300 mg TID 11/21/16 14:00 11/22/16 14:16 300 MG Lisinopril (Prinivil) 20 mg DAILY 11/21/16 12:00 11/22/16 09:53 20 MG Magnesium Oxide (Magnesium Oxide) 400 mg TID 11/21/16 14:00 11/22/16 14:16 400 MG Metformin HCl (Glucophage) 500 mg DAILYWBKFT 11/21/16 12:00 11/22/16 09:54 500 MG Multivitamins (Thera M Plus) 1 tab DAILY 11/21/16 12:00 11/22/16 09:53 1 TAB Nystatin (Nystop) 1 francisco j BID 11/21/16 21:00 11/22/16 09:56 1 FRANCISCO J Oxycodone HCl (Roxicodone) 5 mg PRN Q4HRS PRN 11/21/16 23:30 11/22/16 14:17 5 MG Oxycodone/ Acetaminophen (Percocet 10/325) 1 tab 1X ONCE 11/20/16 22:00 11/20/16 22:01 DC 11/20/16 22:11 1 TAB LAB Lab: Laboratory Tests Test 11/22/16 03:40 Sodium Level 139mmol/L (136-145) Potassium Level 4.0mmol/L (3.5-5.1) Chloride Level 100mmol/L (98-107) Carbon Dioxide Level 32mmol/L (21-32) Anion Gap 7 (6-14) Blood Urea Nitrogen 9mg/dL (7-20) Creatinine 0.8mg/dL (0.6-1.0) Estimated GFR (Cockcroft-Gault) 70.3 Glucose Level 117mg/dL (70-99) Calcium Level 9.7mg/dL (8.5-10.1) Magnesium Level 1.8mg/dL (1.8-2.4) Troponin I Quantitative < 0.017ng/mL (0.000-0.055) Triglycerides Level 52mg/dL (0-150) Cholesterol Level 129mg/dL (0-200) LDL Cholesterol, Calculated 76mg/dL (0-100) VLDL Cholesterol, Calculated 10mg/dL (0-40) HDL Cholesterol 43mg/dL (40-60) Cholesterol/HDL Ratio 3.0 RYAN PALMER MD Nov 22, 2016 16:54
[2016-11-22 19:55] VITALS: BP 139/68
[2016-11-22 23:35] VITALS: BP 152/73
[2016-11-23] MEDS: OXYCODONE IR 5 MG TABLET. PO SCH ×2 (02:11→06:37)
[2016-11-23 03:00] VITALS: BP 125/69
[2016-11-23 05:37] LABS: CALCIUM 9.2 mg/dL (8.5-10.1); CREATININE 0.8 mg/dL (0.6-1.0); GFR 70.3; MAGNESIUM 1.7 mg/dL (1.8-2.4); POTASSIUM 3.4 mmol/L (3.5-5.1)
[2016-11-23 07:32] VITALS: BP 157/76
[2016-11-23] MEDS: IPRATRPIUM/ALBUTEROL 0.5/2.5MG 3 ML NEBU. NEB SCH ×4 (07:43→19:50)
[2016-11-23] MEDS ORDERED: POTASSIUM CHLORIDE 20 MEQ TABLET.ER. PO ONE (08:15)
[2016-11-23] MEDS: CARVEDILOL 6.25 MG TABLET. PO SCH ×2 (08:37→17:20)
[2016-11-23] MEDS: MAGNESIUM OXIDE 400 MG TABLET PO SCH ×3 (08:37→20:08)
[2016-11-23] MEDS: GABAPENTIN 300 MG CAPSULE. PO SCH ×3 (08:37→20:08)
[2016-11-23] MEDS: FUROSEMIDE 40 MG TABLET. PO SCH (08:37)
[2016-11-23] MEDS: METFORMIN 500 MG TABLET. PO SCH (08:37)
[2016-11-23] MEDS: AMLODIPINE BESYLATE 10 MG TABLET. PO SCH (08:37)
[2016-11-23] MEDS: DICLOFENAC SODIUM 1% TOPICAL GEL 100GM TUBE. TP SCH ×4 (08:38→20:09)
[2016-11-23] MEDS: MULTIVITAMIN with MINERAL TABLET. PO SCH (08:38)
[2016-11-23] MEDS: LISINOPRIL 20 MG TABLET PO SCH (08:38)
[2016-11-23] MEDS: DULOXETINE HCL 30 MG CAPSULE.DR. PO SCH (08:38)
[2016-11-23] MEDS: NYSTATIN TOPICAL POWDER 15GM BOTTLE. TP SCH ×2 (08:39→20:09)
--- NOTE | 2016-11-23 09:29 | PDOC ---
CARDIO Progress Notes Date and Time Date of Service 11/23/2016 Time of Evaluation 1015 Subjective Subjective: No Chest Pain, No shortness of breath, No Palpitations, No Dizziness, Other (complains of lower abdominal pain and chills) Vitals Vitals Vital Signs Date Time Temp Pulse Resp B/P Pulse Ox O2 Delivery O2 Flow Rate FiO2 11/23/16 08:38 91 157/76 11/23/16 07:43 94 Nasal Cannula 3.0 11/23/16 07:32 98.0 20 98.0 Weight Weight [ ] Input and Output Intake and Output Intake and Output 11/23/16 07:00 Intake Total 560 ml Output Total 3200 ml Balance -2640 ml Intake Oral 560 ml Output Urine Total 3200 ml # Bowel Movements 1 Laboratory Labs Laboratory Tests Test 11/23/16 04:05 Sodium Level 139mmol/L (136-145) Potassium Level 3.4mmol/L (3.5-5.1) Chloride Level 100mmol/L (98-107) Carbon Dioxide Level 32mmol/L (21-32) Anion Gap 7 (6-14) Blood Urea Nitrogen 9mg/dL (7-20) Creatinine 0.8mg/dL (0.6-1.0) Estimated GFR (Cockcroft-Gault) 70.3 Glucose Level 128mg/dL (70-99) Calcium Level 9.2mg/dL (8.5-10.1) Magnesium Level 1.7mg/dL (1.8-2.4) Microbiology Micro Microbiology 11/20/16 Urine Culture - Final, Complete 11/20/16 Urine Culture Result 1 (DIRK) - Final, Complete 11/20/16 Antimicrobic Susceptibility - Final, Complete Physical Exam HEENT: Neck Supple W Full Motion Chest: Symmetric LUNGS: Other (basilar crackles) Heart: S1S2, RRR (SR) Abdomen: Other (lower abdomen tender to touch) Extremities: No Calf Tenderness, Other (2+ bilateral LE pitting edema; right arm chronic lymphedema) Neurology: alert, oriented, follow commands Assessment Assessment 1. Acute diastolic CHF: compensated. 2. CAD?: MPI 2013 showed possible small apical infarct. Troponin normal, CP free. 3. Severe pulmonary HTN: PAP 60 mmHg, No prior hx of COPD. suspect RONAL 4. HTN: mildly labile, abdominal pain contributing 5. DM2/HLP: controlled 6. Lower Abdominal pain with UTI: per PCP 7. Hypokalemia/hypomagnesemia Recommendations 1. Recommend outpt RONAL workup if none done. 2. Remains with good diurese. Continue with po lasix 3. Continue with lisinopril/coreg/norvasc. Defer any further adjustment to PCP 4. Allergy to ASA, if CAD then would recommend plavix. 5. Replace K and Mg 6. No further cardiac recommendations at this time. Will follow as needed. ANTHONY WHITE DIRECTOR OF PHYSICAL SECURITY Nov 23, 2016 09:29
--- NOTE | 2016-11-23 09:31 | PDOC ---
PROGRESS NOTES Subjective Subjective Pt awake and pleasant this am. States abdominal pain is resolved. States she is eating and drinking well with good output. Continues to c/o SOB with exertion, however states her breathing is less labored. Objective Objective Pt awake and alert. NAD. VSS. Afebrile. Heart with RRR. No murmurs. Resp even and unlabored. Lungs with loose rhonchi throughout. Pt on 3L of O2 per NC. Abdomen soft, nondistended, and nontender. Vital Signs Date Time Temp Pulse Resp B/P Pulse Ox O2 Delivery O2 Flow Rate FiO2 11/23/16 08:38 91 157/76 11/23/16 07:43 94 Nasal Cannula 3.0 11/23/16 07:32 98.0 20 98.0 Intake and Output 11/23/16 07:00 Intake Total 560 ml Output Total 3200 ml Balance -2640 ml Intake Oral 560 ml Output Urine Total 3200 ml # Bowel Movements 1 Assessment Assessment Problems Medical Problems: (1) Heart failure Status: Acute (2) UTI (urinary tract infection) Status: Acute Plan Plan of Care 1. Abdominal pain, resolved -Abd series: Nonobstructive bowel gas pattern. 2. CHF with normal systolic function -Cardiology consulting -CXR: Moderate right and small left pleural effusions with lower lobe infiltrate or atelectasis. -Echo: EF 55-60% with normal LV systolic function -Diuresing well, I>O. Changed to Lasix on 11/22. 3. Pulmonary HTN -PAP 60 mmHg 4. HTN -Cardiology consulting -Pt on Amlodipine, Coreg and Lisinopril 5. Diabetes II, non insulin dependent -FSBS controlled 6. UTI, E.Coli -Macrobid 100mg, 1 tab bid x 7d 7. Hyponatremia, resolved -Na 134 on admission, 139 today 8. Hypokalemia -K 3.4 this am -Recheck BMP in am Hopeful for Dc home tomorrow am. Nursing to try to wean pt off of O2 today. Comment Review of Relevant I have reviewed the following items jose (where applicable) has been applied. Labs Laboratory Tests Test 11/22/16 03:40 11/23/16 04:05 Sodium Level 139mmol/L (136-145) 139mmol/L (136-145) Potassium Level 4.0mmol/L (3.5-5.1) 3.4mmol/L (3.5-5.1) Chloride Level 100mmol/L (98-107) 100mmol/L (98-107) Carbon Dioxide Level 32mmol/L (21-32) 32mmol/L (21-32) Anion Gap 7 (6-14) 7 (6-14) Blood Urea Nitrogen 9mg/dL (7-20) 9mg/dL (7-20) Creatinine 0.8mg/dL (0.6-1.0) 0.8mg/dL (0.6-1.0) Estimated GFR (Cockcroft-Gault) 70.3 70.3 Glucose Level 117mg/dL (70-99) 128mg/dL (70-99) Calcium Level 9.7mg/dL (8.5-10.1) 9.2mg/dL (8.5-10.1) Magnesium Level 1.8mg/dL (1.8-2.4) 1.7mg/dL (1.8-2.4) Troponin I Quantitative < 0.017ng/mL (0.000-0.055) Triglycerides Level 52mg/dL (0-150) Cholesterol Level 129mg/dL (0-200) LDL Cholesterol, Calculated 76mg/dL (0-100) VLDL Cholesterol, Calculated 10mg/dL (0-40) HDL Cholesterol 43mg/dL (40-60) Cholesterol/HDL Ratio 3.0 Laboratory Tests Test 11/23/16 04:05 Sodium Level 139mmol/L (136-145) Potassium Level 3.4mmol/L (3.5-5.1) Chloride Level 100mmol/L (98-107) Carbon Dioxide Level 32mmol/L (21-32) Anion Gap 7 (6-14) Blood Urea Nitrogen 9mg/dL (7-20) Creatinine 0.8mg/dL (0.6-1.0) Estimated GFR (Cockcroft-Gault) 70.3 Glucose Level 128mg/dL (70-99) Calcium Level 9.2mg/dL (8.5-10.1) Magnesium Level 1.7mg/dL (1.8-2.4) Microbiology 11/20/16 Urine Culture - Final, Complete 11/20/16 Urine Culture Result 1 (DIRK) - Final, Complete 11/20/16 Antimicrobic Susceptibility - Final, Complete Medications Current Medications Ceftriaxone Sodium (Rocephin 1gm Ivpb For Omni) 50 ml @ 100 mls/hr 1X ONCE IV Last administered on 11/20/16 21:23; Start 11/20/16 at 21:30; Stop 11/20/16 at 21:59; Status DC Oxycodone/ Acetaminophen (Percocet 10/325) 1 tab 1X ONCE PO Last administered on 11/20/16 22:11; Start 11/20/16 at 22:00; Stop 11/20/16 at 22:01; Status DC Albuterol/ Ipratropium (Duoneb) 3 ml RTQID NEB Last administered on 11/23/16 07 :43; Start 11/21/16 at 08:00 Oxycodone HCl (Roxicodone) 5 mg BID PO Last administered on 11/23/16 06:37; Start 11/21/16 at 09:00 Acetaminophen (Tylenol) 325 mg PRN Q6HRS PRN PO MILD PAIN / TEMP; Start at 10:30 Amlodipine Besylate (Norvasc) 5 mg DAILY PO Last administered on 11/22/16 09:53 ; Start 11/21/16 at 12:00; Stop 11/22/16 at 12:41; Status DC Carvedilol (Coreg) 6.25 mg BIDWMEALS PO Last administered on 11/23/16 08:37; Start 11/21/16 at 17:00 Diclofenac Sodium (Voltaren) 2 francisco j QID TP Last administered on 11/23/16 08:38; Start 11/21/16 at 13:00 Docusate Sodium (Colace) 100 mg PRN DAILY PRN PO CONSTIPATION; Start 11/21/16 at 10:30 Lisinopril (Prinivil) 20 mg DAILY PO Last administered on 11/23/16 08:38; Start 11/21/16 at 12:00 Magnesium Oxide (Magnesium Oxide) 400 mg TID PO Last administered on 11/23/16 08:37; Start 11/21/16 at 14:00 Metformin HCl (Glucophage) 500 mg DAILYWBKFT PO Last administered on 11/23/16 08:37; Start 11/21/16 at 12:00 Duloxetine HCl (Cymbalta) 60 mg DAILY PO Last administered on 11/23/16 08:38; Start 11/21/16 at 12:00 Gabapentin (Neurontin) 300 mg TID PO Last administered on 11/23/16 08:37; Start 11/21/16 at 14:00 Multivitamins (Thera M Plus) 1 tab DAILY PO Last administered on 11/23/16 08:38 ; Start 11/21/16 at 12:00 Furosemide (Lasix) 40 mg DAILY IVP Last administered on 11/22/16 09:56; Start 11/21/16 at 11:00; Stop 11/22/16 at 12:41; Status DC Nystatin (Nystop) 1 francisco j BID TP Last administered on 11/23/16 08:39; Start at 21:00 Oxycodone HCl (Roxicodone) 5 mg PRN Q4HRS PRN PO SEVERE PAIN Last administered on 11/22/16 14:17; Start 11/21/16 at 23:30 Albuterol/ Ipratropium (Duoneb) 3 ml 1X ONCE NEB Last administered on 04:30; Start 11/22/16 at 05:00; Stop 11/22/16 at 05:01; Status DC Amlodipine Besylate (Norvasc) 10 mg DAILY PO Last administered on 11/23/16 08: 37; Start 11/23/16 at 09:00 Furosemide (Lasix) 40 mg DAILY PO Last administered on 11/23/16 08:37; Start at 09:00 Potassium Chloride (Klor-Con) 40 meq 1X ONCE PO Last administered on 11/23/16 08:41; Start 11/23/16 at 08:15; Stop 11/23/16 at 08:19; Status DC Active Scripts Active Cipro (Ciprofloxacin Hcl) 250 Mg Tablet 1 Tab PO BID Oxycodone Hcl 5 Mg Capsule 1 Cap PO BID Carvedilol 6.25 Mg Tablet 1 Tab PO BID Amlodipine Besylate 10 Mg Tablet 5 Mg PO DAILY 30 Days Metformin Hcl 1,000 Mg Tablet 500 Mg PO DAILY 30 Days Tylenol (Acetaminophen) 325 Mg Tablet 325 Mg PO PRN Q6HRS PRN Reported Docusate Sodium 100 Mg Capsule 1 Cap PO DAILY PRN Voltaren (Diclofenac Sodium) 100 Gm Gel..gram. 2 Gm TP QID Multi-Day Vitamins (Multivitamin) 1 Each Tablet 1 Tab PO DAILY Magnesium Oxide 400 Mg Tablet 2 Tab PO TID Gabapentin 300 Mg Capsule 300 Mg PO TID Cymbalta (Duloxetine Hcl) 60 Mg Capsule. 1 Cap PO DAILY Lisinopril 20 Mg Tablet 20 Mg PO Vitals/I & O Vital Sign - Last 24 Hours 11/22/16 11/22/16 11/22/16 11/22/16 09:53 09:53 09:54 10:05 Pulse 92 92 92 B/P 165/79 165/79 165/79 Pulse Ox 94 O2 Delivery Nasal Cannula O2 Flow Rate 3.0 11/22/16 11/22/16 11/22/16 11/22/16 10:55 11:20 12:13 14:17 Temp 97.9 97.9 Pulse 87 Resp B/P 150/89 Pulse Ox 89 94 94 O2 Delivery Nasal Cannula Nasal Cannula Nasal Cannula O2 Flow Rate 3.0 3.0 3.0 11/22/16 11/22/16 11/22/16 11/22/16 15:00 15:18 16:02 17:16 Temp 98.0 98.0 Pulse 83 83 Resp 16 B/P 148/84 148/84 Pulse Ox 93 94 O2 Delivery Nasal Cannula Nasal Cannula Nasal Cannula O2 Flow Rate 2.0 3.0 3.0 11/22/16 11/22/16 11/22/16 11/22/16 19:55 20:00 20:07 21:17 Temp 98.3 98.3 Pulse 83 Resp 22 B/P 139/68 Pulse Ox 97 97 O2 Delivery Nasal Cannula Nasal Cannula Nasal Cannula Nasal Cannula O2 Flow Rate 3.0 3.0 3.0 3.0 11/22/16 11/23/16 11/23/16 11/23/16 23:35 02:11 03:00 03:19 Temp 98.3 98.3 98.3 98.3 Pulse 86 91 Resp 20 20 20 18 B/P 152/73 125/69 Pulse Ox 93 93 92 O2 Delivery Nasal Cannula Nasal Cannula Nasal Cannula O2 Flow Rate 3.0 3.0 3.0 4/12/0611/23/16 11/23/16 11/23/16 06:37 07:32 07:39 07:43 Temp 98.0 98.0 Resp 20 20 B/P 157/76 Pulse Ox 93 94 94 94 O2 Delivery Nasal Cannula Nasal Cannula Nasal Cannula Nasal Cannula O2 Flow Rate 3.0 3.0 3.0 3.0 11/23/16 11/23/16 11/23/16 08:37 08:37 08:38 Pulse 91 91 91 B/P 157/76 157/76 157/76 Intake and Output 11/22/16 11/22/16 11/23/16 15:00 23:00 07:00 Intake Total 120 ml 440 ml Output Total 2000 ml 600 ml 600 ml Balance -2000 ml -480 ml -160 ml RYAN PALMER MD Nov 23, 2016 09:31
[2016-11-23 10:33] VITALS: BP 144/66
[2016-11-23 10:57] LABS: BASO # 0.1 x10^3/uL (0.0-0.2); BASO % 1 % (0-3); EOS % 1 % (0-3); HEMATOCRIT 41.2 % (36.0-47.0); HEMOGLOBIN 13.1 g/dL (12.0-15.5); LYMPH % 13 % (24-48); MEAN CORPUSCULAR HEMOGLOBIN 26 pg (25-35); MEAN CORPUSCULAR HGB CONC 32 g/dL (31-37); MEAN CORPUSCULAR VOLUME 81 fL (79-100); MONO % 11 % (0-9); NEUT % 74 % (31-73); PLATELET COUNT 222 x10^3/uL (140-400); RED BLOOD COUNT 5.08 x10^6/uL (3.50-5.40); RED CELL DISTRIBUTION WIDTH 16.2 % (11.5-14.5); WHITE BLOOD COUNT 7.7 x10^3/uL (4.0-11.0)
[2016-11-23] MEDS: NITROFURANTOIN MONOHYD/M-CRYST 100 MG CAPSULE. PO SCH ×2 (11:58→20:08)
[2016-11-23] MEDS: POTASSIUM CHLORIDE 10 MEQ TABLET.ER. PO SCH (11:58)
[2016-11-23 14:03] VITALS: BP 146/71
[2016-11-23] MEDS: OXYCODONE IR 5 MG TABLET. PO PRN ×2 (14:23→22:06)
[2016-11-23 19:15] VITALS: BP 134/73
[2016-11-23 23:00] VITALS: BP 135/73
[2016-11-24] MEDS: OXYCODONE IR 5 MG TABLET. PO SCH ×2 (02:07→21:00)
[2016-11-24 06:39] LABS: CALCIUM 9.3 mg/dL (8.5-10.1); GFR 54.3; POTASSIUM 3.8 mmol/L (3.5-5.1)
[2016-11-24 07:00] VITALS: BP 140/72
[2016-11-24] MEDS: IPRATRPIUM/ALBUTEROL 0.5/2.5MG 3 ML NEBU. NEB SCH ×3 (08:00→20:51)
[2016-11-24] MEDS: GABAPENTIN 300 MG CAPSULE. PO SCH ×3 (09:04→21:04)
[2016-11-24] MEDS: MAGNESIUM OXIDE 400 MG TABLET PO SCH ×3 (09:04→21:04)
[2016-11-24] MEDS: NITROFURANTOIN MONOHYD/M-CRYST 100 MG CAPSULE. PO SCH ×2 (09:04→21:04)
[2016-11-24] MEDS: MULTIVITAMIN with MINERAL TABLET. PO SCH (09:04)
[2016-11-24] MEDS: POTASSIUM CHLORIDE 10 MEQ TABLET.ER. PO SCH (09:04)
[2016-11-24] MEDS: METFORMIN 500 MG TABLET. PO SCH (09:05)
[2016-11-24] MEDS: OXYCODONE IR 5 MG TABLET. PO PRN ×4 (09:06→21:05)
[2016-11-24] MEDS: FUROSEMIDE 40 MG TABLET. PO SCH (09:06)
[2016-11-24] MEDS: DULOXETINE HCL 30 MG CAPSULE.DR. PO SCH (09:06)
[2016-11-24] MEDS: AMLODIPINE BESYLATE 10 MG TABLET. PO SCH (09:07)
[2016-11-24] MEDS: LISINOPRIL 20 MG TABLET PO SCH (09:07)
[2016-11-24] MEDS: CARVEDILOL 6.25 MG TABLET. PO SCH ×2 (09:08→18:35)
[2016-11-24] MEDS: DICLOFENAC SODIUM 1% TOPICAL GEL 100GM TUBE. TP SCH ×4 (09:08→21:05)
[2016-11-24] MEDS: NYSTATIN TOPICAL POWDER 15GM BOTTLE. TP SCH ×2 (09:09→21:05)
[2016-11-24 11:00] VITALS: BP 148/73
[2016-11-24 15:00] VITALS: BP 142/69
[2016-11-24] MEDS ORDERED: IOHEXOL 240 MG/ML 50ML VIAL. PO ONE (16:30)
[2016-11-24 19:57] VITALS: BP 145/78
[2016-11-24 22:56] VITALS: BP 99/51
[2016-11-25 07:21] VITALS: BP 184/83
[2016-11-25] MEDS: IPRATRPIUM/ALBUTEROL 0.5/2.5MG 3 ML NEBU. NEB SCH ×3 (07:55→19:15)
--- NOTE | 2016-11-25 08:31 | RAD ---
CT of the abdomen and pelvis without contrast, 11/24/2016: History: Abdominal pain No IV contrast was administered for this study as requested. Oral contrast material was given for GI tract opacification. There is a moderate volume of right-sided pleural fluid and a small amount of left-sided pleural fluid with moderate underlying atelectasis in the lung bases, worse on the right. The heart is enlarged. The unopacified liver shows no abnormality. There is a tiny radiopacity within the gallbladder suggesting cholelithiasis. The gallbladder wall is thickened. No pericholecystic edema is seen. No pancreatic mass is evident. The spleen is of normal size. There is mild bilateral renal cortical scarring. The unopacified kidneys are otherwise unremarkable. There is moderate aortoiliac calcific plaquing without evidence of aneurysm. No abdominal or pelvic adenopathy is seen. The uterus is surgically absent. The bowel loops are not dilated. No free air or significant free fluid is evident in the abdomen or pelvis. There is mild streaky subcutaneous edema, particularly in the flank regions suggesting mild anasarca. There are moderate degenerative changes in the spine. There is a slight spondylolisthesis at L4-5 due to facet joint arthropathy. There is an old internally fixed left hip fracture. IMPRESSION: 1.Small to moderate sized bilateral pleural effusions, right greater than left with moderate underlying bibasilar atelectasis. 2. Probable cholelithiasis with mild gallbladder wall thickening. 3. Mild anasarca. PQRS Compliance Statement: One or more of the following individualized dose reduction techniques were utilized for this examination: 1. Automated exposure control 2. Adjustment of the mA and/or kV according to patient size 3. Use of iterative reconstruction technique
[2016-11-25] MEDS: MULTIVITAMIN with MINERAL TABLET. PO SCH (08:47)
[2016-11-25] MEDS: NITROFURANTOIN MONOHYD/M-CRYST 100 MG CAPSULE. PO SCH ×2 (08:48→21:20)
[2016-11-25] MEDS: FUROSEMIDE 40 MG TABLET. PO SCH (08:48)
[2016-11-25] MEDS: GABAPENTIN 300 MG CAPSULE. PO SCH ×3 (08:48→21:20)
[2016-11-25] MEDS: POTASSIUM CHLORIDE 10 MEQ TABLET.ER. PO SCH (08:48)
[2016-11-25] MEDS: MAGNESIUM OXIDE 400 MG TABLET PO SCH ×3 (08:48→21:20)
[2016-11-25] MEDS: AMLODIPINE BESYLATE 10 MG TABLET. PO SCH (08:49)
[2016-11-25] MEDS: OXYCODONE IR 5 MG TABLET. PO SCH ×2 (08:49→21:22)
[2016-11-25] MEDS: CARVEDILOL 6.25 MG TABLET. PO SCH ×2 (08:50→17:57)
[2016-11-25] MEDS: LISINOPRIL 20 MG TABLET PO SCH (08:50)
[2016-11-25] MEDS: NYSTATIN TOPICAL POWDER 15GM BOTTLE. TP SCH ×2 (08:50→21:21)
[2016-11-25] MEDS: DICLOFENAC SODIUM 1% TOPICAL GEL 100GM TUBE. TP SCH ×4 (08:51→21:21)
[2016-11-25] MEDS: DULOXETINE HCL 30 MG CAPSULE.DR. PO SCH (08:58)
--- NOTE | 2016-11-25 09:55 | PDOC ---
SUBJECTIVE Subjective was to be discharged yesterday then had another spisode abdominal pain, CT with cholilithiasis, feels better again this AM OBJECTIVE Objective Bp still labile Vital Signs Vital Signs Date Time Temp Pulse Resp B/P Pulse Ox O2 Delivery O2 Flow Rate FiO2 11/25/16 08:50 93 184/83 11/25/16 08:50 93 184/83 11/25/16 08:49 93 184/83 11/25/16 08:49 95 Nasal Cannula 3.0 11/25/16 07:57 94 Nasal Cannula 3.0 11/25/16 07:21 98.4 88 20 184/83 95 Nasal Cannula 3.0 98.4 11/24/16 22:56 98.1 83 20 99/51 90 Nasal Cannula 3.0 98.1 11/24/16 22:00 20 90 Nasal Cannula 3.0 11/24/16 21:00 18 94 Nasal Cannula 3.0 11/24/16 20:48 94 Nasal Cannula 3.0 11/24/16 20:21 20 Nasal Cannula 3.0 11/24/16 19:57 97.6 84 18 145/78 93 Nasal Cannula 3.0 97.6 11/24/16 19:55 Nasal Cannula 3.0 11/24/16 19:21 Nasal Cannula 3.0 11/24/16 18:35 84 119/57 11/24/16 16:11 Nasal Cannula 3.0 11/24/16 15:00 98.7 83 18 142/69 95 Nasal Cannula 3.0 98.7 11/24/16 14:04 95 Nasal Cannula 3.0 11/24/16 11:00 98.5 87 18 148/73 95 Nasal Cannula 3.0 98.5 11/24/16 10:06 93 I & O Intake and Output 11/25/16 07:00 Intake Total 550 ml Output Total 2600 ml Balance -2050 ml Intake Oral 550 ml Output Urine Total 2600 ml # Voids 1 # Bowel Movements 2 PHYSICAL EXAM Physical Exam lungs with decrease BS in bases few basilar rales heart RRR abd drawing box tender all upper abd with volunteer gaurding but no rebound ext decrease edema ASSESSMENT/PLAN Assessment/Plan 1- abdominal pain and cholilithiasis on CT will check US feels better today 2. Acute diastolic CHF: improved lost 20 pound in water weight 3. Severe pulmonary HTN: PAP 60 mmHg, No prior hx of COPD. suspect RONAL 4. HTN: mildly labile, 5. DM2/HLP: controlled 6. Hypokalemia/hypomagnesemia replaced continue PT and dueresis Problems: KYLE ASHLEY MD Nov 25, 2016 09:55
[2016-11-25 11:00] VITALS: BP 140/84
[2016-11-25 11:37] LABS: ALBUMIN 3.2 g/dL (3.4-5.0); TOTAL BILIRUBIN 0.7 mg/dL (0.2-1.0); TOTAL PROTEIN 7.2 g/dL (6.4-8.2)
[2016-11-25 13:18] LABS: DIRECT BILIRUBIN 0.4 mg/dL (0.0-0.2)
[2016-11-25] MEDS: PANTOPRAZOLE 40 MG TABLET.DR. PO SCH (13:51)
[2016-11-25] MEDS: OXYCODONE IR 5 MG TABLET. PO PRN ×3 (13:52→21:21)
[2016-11-25 15:00] VITALS: BP 140/70
[2016-11-25 15:24] LABS: FREE T4 1.1 ng/dL (0.76-1.46)
[2016-11-25 16:01] LABS: INR 1.2 (0.8-1.1); PROTHROMBIN TIME PATIENT 14.7 SEC (11.7-14.0)
[2016-11-25 19:59] VITALS: BP 94/54
[2016-11-25 23:15] VITALS: BP 128/64
[2016-11-26] MEDS: OXYCODONE IR 5 MG TABLET. PO PRN ×2 (01:18→15:09)
[2016-11-26 03:17] VITALS: BP 120/63
[2016-11-26 07:00] VITALS: BP 131/65
[2016-11-26] MEDS: OXYCODONE IR 5 MG TABLET. PO SCH ×2 (07:10→20:40)
[2016-11-26] MEDS: IPRATRPIUM/ALBUTEROL 0.5/2.5MG 3 ML NEBU. NEB SCH ×4 (07:25→19:16)
--- NOTE | 2016-11-26 08:04 | RAD ---
Right upper quadrant abdominal ultrasound History: Cholelithiasis. Comparison: None. Technique: Transabdominal ultrasound images are obtained. Findings: Visualized pancreas is unremarkable. Liver is normal in echogenicity. No focal hepatic masses are identified. Gallbladder tissues cholelithiasis. There is gallbladder wall thickening with wall thickness of 5 mm. No pericholecystic fluid is identified. Common bile duct measures normally at 4 mm in diameter. The right kidney measures 9.8 cm in length and is without evidence of obstruction or stone. Visualized portions of the IVC have normal caliber. Impression: Cholelithiasis with gallbladder wall thickening. No pericholecystic fluid or biliary dilatation is identified.
[2016-11-26] MEDS: AMLODIPINE BESYLATE 10 MG TABLET. PO SCH (10:09)
[2016-11-26] MEDS: CARVEDILOL 6.25 MG TABLET. PO SCH ×2 (10:09→17:24)
[2016-11-26] MEDS: GABAPENTIN 300 MG CAPSULE. PO SCH ×3 (10:10→20:39)
[2016-11-26] MEDS: DICLOFENAC SODIUM 1% TOPICAL GEL 100GM TUBE. TP SCH ×4 (10:10→20:39)
[2016-11-26] MEDS: LISINOPRIL 20 MG TABLET PO SCH (10:10)
[2016-11-26] MEDS: NYSTATIN TOPICAL POWDER 15GM BOTTLE. TP SCH ×2 (10:10→20:38)
[2016-11-26 11:25] VITALS: BP 143/76
--- NOTE | 2016-11-26 12:01 | PDOC ---
SUBJECTIVE Subjective continue with abd pain, very tender on palpation, breathing ok OBJECTIVE Vital Signs Vital Signs Date Time Temp Pulse Resp B/P Pulse Ox O2 Delivery O2 Flow Rate FiO2 11/26/16 11:25 98.2 81 18 143/76 94 Nasal Cannula 3.0 98.2 11/26/16 10:23 95 Nasal Cannula 3.0 11/26/16 10:10 86 124/80 11/26/16 10:09 86 124/80 11/26/16 10:09 86 124/80 11/26/16 08:08 Nasal Cannula 3.0 11/26/16 07:27 95 Nasal Cannula 3.0 11/26/16 07:10 95 Nasal Cannula 3.0 11/26/16 07:00 98.5 84 18 131/65 93 Nasal Cannula 3.0 98.5 11/26/16 03:17 98.3 80 16 120/63 95 Nasal Cannula 3.0 98.3 11/26/16 01:18 96 Nasal Cannula 3.0 11/25/16 23:15 99.2 82 18 128/64 96 Room Air 3.0 99.2 11/25/16 22:22 20 11/25/16 21:22 95 Nasal Cannula 2.0 11/25/16 19:59 97.4 75 18 94/54 96 Nasal Cannula 3.0 97.4 11/25/16 19:35 Nasal Cannula 2.0 11/25/16 19:17 95 Nasal Cannula 3.0 11/25/16 19:00 20 95 Nasal Cannula 2.0 11/25/16 18:00 95 Nasal Cannula 2.0 11/25/16 17:57 80 140/72 11/25/16 15:00 98.8 80 20 140/70 96 Nasal Cannula 3.0 98.8 11/25/16 13:52 98 Nasal Cannula 3.0 I & O Intake and Output 11/26/16 07:00 Intake Total 980 ml Output Total 1550 ml Balance -570 ml Intake Oral 980 ml Output Urine Total 1550 ml # Voids 1 PHYSICAL EXAM Physical Exam not much change ASSESSMENT/PLAN Assessment/Plan 1- abdominal pain and cholilithiasis will ask surgery to evaluate, discussed with Dr. Joy Viramontes and ask cardiology clearance, pt would like to avoid surgery if possible will ask GI to see also 2. Acute diastolic CHF: improved EF 55-60 % 3. Severe pulmonary HTN: PAP 60 mmHg, No prior hx of COPD. suspect RONAL 4. HTN: mildly labile, 5. DM2/HLP: controlled 6. Hypokalemia/hypomagnesemia replaced GI and surgery eval for abd pain as above Problems: COMMENT Lab Laboratory Tests Test 11/25/16 15:35 Prothrombin Time 14.7SEC (11.7-14.0) Prothromb Time International Ratio 1.2 (0.8-1.1) Activated Partial Thromboplast Time 34SEC (24-38) KYLE ASHLEY MD Nov 26, 2016 12:01
[2016-11-26] MEDS: ENOXAPARIN 40 MG/0.4 ML SYRINGE. SQ SCH ×2 (12:30→15:29)
--- NOTE | 2016-11-26 12:58 | PDOC ---
CARDIO Progress Notes Date and Time Date of Service 11/26/2016 Time of Evaluation 1340 Subjective Subjective: No Chest Pain, No shortness of breath, No Palpitations, No Dizziness, Other (feels nauseated still) Vitals Vitals Vital Signs Date Time Temp Pulse Resp B/P Pulse Ox O2 Delivery O2 Flow Rate FiO2 11/26/16 11:25 98.2 81 18 143/76 94 Nasal Cannula 3.0 98.2 Weight Weight [ ] Input and Output Intake and Output Intake and Output 11/26/16 07:00 Intake Total 980 ml Output Total 1550 ml Balance -570 ml Intake Oral 980 ml Output Urine Total 1550 ml # Voids 1 Laboratory Labs Laboratory Tests Test 11/25/16 15:35 Prothrombin Time 14.7SEC (11.7-14.0) Prothromb Time International Ratio 1.2 (0.8-1.1) Activated Partial Thromboplast Time 34SEC (24-38) Microbiology Micro Microbiology 11/20/16 Urine Culture - Final, Complete 11/20/16 Urine Culture Result 1 (DIRK) - Final, Complete 11/20/16 Antimicrobic Susceptibility - Final, Complete Physical Exam HEENT: Neck Supple W Full Motion Chest: Symmetric LUNGS: Other (basilar crackles) Heart: S1S2, RRR (SR) Abdomen: Other (diffuse abd tenderness) Extremities: No Edema, No Calf Tenderness, Other (2+ bilateral LE pitting edema ; right arm chronic lymphedema) Neurology: alert, oriented, follow commands Assessment Assessment 1. Acute diastolic CHF: compensated. 2. Preop cardiac evaluation: METS 5. Recent TTE with normal EF and LV wall motion. Moderate risk for CV events per cardiac risk stratification 3. Severe pulmonary HTN: PAP 60 mmHg, No prior hx of COPD. suspect RONAL 4. HTN: controlled 5. DM2/HLP: controlled 6. GB disease with abd pain: possible lap carlton today. 7. CAD?: MPI 09/2013 possible small apical infarct. No cardiac symptoms. Recommendations 1. No further cardiac testing at this time, would recommend pulmonary preop evaluation in regards to #3 2. Continue with current antiHTN regimen and lasix. Continue BB on surgical day. 3. Continue with lisinopril/coreg/norvasc. Defer any further adjustment to PCP ANTHONY WHITE APRN Nov 26, 2016 12:58
--- NOTE | 2016-11-26 13:17 | PDOC2 ---
GI CONSULT Reason For Consult: Abd pain HPI: HPI: 71 y/o female admitted on 11/20/16 w/ c/o SOA and abd distention/pain, admitted w / CHF. She is now improved/stable in that respect, but has is still bothered w / abd pain which is mostly left-sided by history. It began about >1 week ago and is worse w/ movement and sometimes worse after eating. Distention has resolved. She denies n/v and also reports no history of reflux/heartburn. No issues w/ diarrhea or constipation. Recalls previous colonoscopy (not sure where or when) as normal. No previous EGD. Is on PPI here. CT A/P and RUQ US showed cholelithiasis w/ mild GB wall thickening. She is NPO w/ pending surgical consult. PMH: PMH: CAD, HTN, pulm HTN, HLD, DM, breast cancer s/p lumpectomy w/ rad/chemo w/ resulting lymphedema RUE, hysterectomy, right knee replacement, right hip replacement, cataract extraction FH: Family History: No pertinent hx Social History: Smoke: No ROS: GEN: +chills HEENT: Denies blurred vision, sore throat CV: Denies chest pain RESP: +SOA - improved GI: Per HPI : Denies hematuria, dysuria ENDO: "weight loss" (fluid/diuresis) NEURO: Denies confusion, dizziness MSK: +weakness +LE swelling SKIN: Denies jaundice, pruritus VItals: Vitals: Vital Signs Date Time Temp Pulse Resp B/P Pulse Ox O2 Delivery O2 Flow Rate FiO2 11/26/16 11:25 98.2 81 18 143/76 94 Nasal Cannula 3.0 98.2 Labs: Labs: Laboratory Tests Test 11/25/16 15:35 Prothrombin Time 14.7SEC (11.7-14.0) Prothromb Time International Ratio 1.2 (0.8-1.1) Activated Partial Thromboplast Time 34SEC (24-38) Allergies: Coded Allergies: Sulfa (Sulfonamide Antibiotics) (Verified Allergy, Intermediate, 04/19/14) aspirin (Verified Allergy, Intermediate, 02/24/15) morphine (Verified Allergy, Intermediate, 02/24/15) trazodone (Verified Allergy, Intermediate, 02/24/15) I S O L A T I O N *CONTACT* (Verified Allergy, Unknown, 11/23/16) mrsa/ESBL Medications: Please see EMR. Imaging: Imaging: Acute Abd Series 11/20/16 IMPRESSION: 1. Moderate right and small left pleural effusions with lower lobe infiltrate or atelectasis. 2. Nonobstructive bowel gas pattern. CT A/P w/ oral contrast 11/24/16 IMPRESSION: 1.Small to moderate sized bilateral pleural effusions, right greater than left with moderate underlying bibasilar atelectasis. 2. Probable cholelithiasis with mild gallbladder wall thickening. 3. Mild anasarca. RUQ US 11/25/16 Impression: Cholelithiasis with gallbladder wall thickening. No pericholecystic fluid or biliary dilatation is identified. PE: GEN: NAD HEENT: Atraumatic, PERRL LUNGS: CTAB anteriorly, nasal cannula HEART: RRR ABD: BS+, seems diffusely uncomfortable, more tender BUQ/epigastrium EXTREMITY: BLE edema (has socks/compression) SKIN: No rashes, no jaundice NEURO/PSYCH: A & O 3 A/P: A/P: Abd pain -left-sided by history, BUQ/epigastrium on exam -ongoing >1 week, worse w/ movement, after eating Cholelithiasis -on imaging as above CHF -admitted w/ this, SOA - improved CRC screen -reports previous colonoscopy -- Will review w/ Dr. Cooper. Surgery to see - cardiac/pulm clearance requested as well. DANI CANTU Nov 26, 2016 13:17
[2016-11-26] MEDS: MAGNESIUM OXIDE 400 MG TABLET PO SCH ×3 (14:00→20:39)
[2016-11-26 15:07] VITALS: BP 145/69
[2016-11-26] MEDS: DULOXETINE HCL 30 MG CAPSULE.DR. PO SCH (15:08)
[2016-11-26] MEDS: FUROSEMIDE 40 MG TABLET. PO SCH (15:08)
[2016-11-26] MEDS: PANTOPRAZOLE 40 MG TABLET.DR. PO SCH (15:09)
[2016-11-26] MEDS: NITROFURANTOIN MONOHYD/M-CRYST 100 MG CAPSULE. PO SCH ×2 (15:09→20:39)
[2016-11-26] MEDS: POTASSIUM CHLORIDE 10 MEQ TABLET.ER. PO SCH (15:10)
[2016-11-26] MEDS: MULTIVITAMIN with MINERAL TABLET. PO SCH (15:10)
[2016-11-26] MEDS: PIPERACILLIN/TAZOBACTAM 2.25 GM in IV NORMAL SALINE 50ML 50 ML IV SCH ×3 (15:12→23:02)
--- NOTE | 2016-11-26 16:30 | PDOC ---
Provider Note Provider Note dictated TOSIN GEORGE MD Nov 26, 2016 16:29
[2016-11-26] MEDS ORDERED: FUROSEMIDE 40 MG/4 ML VIAL. IVP ONE (17:00)
--- NOTE | 2016-11-26 17:04 | CONS ---
DATE OF CONSULTATION: 11/26/2016 ATTENDING PHYSICIAN: Dr. Eliecer Gama. REASON FOR CONSULTATION: Pleural effusion and pulmonary hypertension. HISTORY OF PRESENT ILLNESS: The patient is a pleasant 71-year-old female who smoked for about 40 years before quitting more than 10 years ago. She presented to the Emergency Room with complaint of abdominal pain. She said she was also bloated and had significant abdominal distention. She states she feels better since she has been on Lasix, and the water has been removed from her body. The patient also states that she has an occasional shortness of breath, but she feels better. She is normally not on home oxygen. Currently, she is on 2 liters of oxygen. Her chest x-ray which was performed on 11/20/2016 shows bibasilar pleural effusion, more on the right than on the left and also nonobstructive bowel gas pattern on a KUB. She had an abdominal and pelvis CT which was reviewed by me, and it shows small to moderate bilateral pleural effusion, more on the right than on the left with associated atelectasis and possible cholelithiasis. She has never been tested for sleep apnea. She denies any significant daytime somnolence. She has no history of deep vein thrombosis or pulmonary embolism. An echocardiogram has shown moderate pulmonary hypertension with a pulmonary artery systolic pressure of 60. No significant aortic regurgitation but only mild mitral regurgitation, and EF was 55% to 60%. Consultation was requested for further evaluation. PAST MEDICAL HISTORY: Significant for history of prior breast cancer, history of type 2 diabetes, hyperlipidemia, hypertension, coronary artery disease with prior [place], and history of breast cancer with breast lumpectomy. PAST SURGICAL HISTORY: Two neck surgeries and hysterectomy. ALLERGIES: SULFA, ASPIRIN, MORPHINE, AND TRAZODONE. FAMILY HISTORY: Noncontributory. SOCIAL HISTORY: Currently does not smoke, but has smoked for 40 years before quitting. MEDICATIONS: All reviewed as listed in the [facility] including Lovenox for DVT prophylaxis. She is on Zosyn. REVIEW OF SYSTEMS: Twelve-point system was obtained. Pertinent positives are discussed in history of present illness, otherwise noncontributory. All systems that were negative were reviewed as well. PHYSICAL EXAMINATION: GENERAL: She is awake, following commands. No distress. VITAL SIGNS: Blood pressure stable, pulse oximetry 93% on 2 liters. NECK: Supple. LUNGS: Diminished breath sounds at the bases. CARDIOVASCULAR: Regular rate and rhythm. ABDOMEN: Soft, distended. EXTREMITIES: With trace pitting edema. LABORATORY DATA: Reviewed. BUN is 12, creatinine 1.0. Her albumin was 3.2. White blood cell count 7.7, hemoglobin 13.1, and platelets are 222. IMPRESSION: 1. Bibasilar pleural effusion, more on the right than on the left, probably secondary to combination of mild protein calorie malnutrition with low oncotic pressure and may be mild diastolic dysfunction/heart failure. Clinically, less likely pneumonia. 2. Moderate pulmonary hypertension with a pulmonary artery systolic pressure of 60. No significant left ventricular dysfunction. Mild mitral regurgitation. She has tobacco use for 40 years, and I suspect her pulmonary hypertension is secondary to her underlying chronic obstructive pulmonary disease. 3. Recent diagnosis of cholelithiasis. 4. History of coronary artery disease. RECOMMENDATIONS: 1. The patient states that she is responding to Lasix at this time. I would treat her pleural effusions with some extra doses of IV Lasix. I would recommend repeating a chest x-ray in 48 hours. (ordered for Tuesday) 2. If there is no improvement in chest x-ray, then thoracentesis can be considered. 3. Pulmonary hypertension appears to be secondary, and at this point, I would not recommend doing a right heart catheterization. We will arrange PFTs as an outpatient. No history of thromboembolic disease and clinically unlikely any interstitial lung disease. 4. History of breast cancer with breast lumpectomy in the past. 5. She has been assessed for laparoscopic cholecystectomy. I would recommend followup with an x-ray to see an improvement in pleural effusion before clearing for surgery. Discussed with RN. TOSIN GEORGE MD DR: EL/abraham JOB#: [id number] / [id number] CELESTINO
--- NOTE | 2016-11-26 17:06 | PDOC ---
Provider Note Provider Note #[id number]--pzapcpf dictated on my history and exam, no RUQ or epigastric pain or tenderness. agree with pippida. if neg for acute cholecystitis, favor nonoperative intervention in this comorbid pt. d/w dr. cooley. LARRY MCKEON MD Nov 26, 2016 17:06
[2016-11-26] MEDS ORDERED: ONDANSETRON PF 4 MG/2 ML VIAL. IV PRN (17:15)
[2016-11-26 19:00] VITALS: BP 146/67
[2016-11-26 23:00] VITALS: BP 122/65
[2016-11-27] MEDS: OXYCODONE IR 5 MG TABLET. PO PRN ×3 (02:31→22:58)
[2016-11-27 03:05] VITALS: BP 140/70
--- NOTE | 2016-11-27 04:17 | CONS ---
DATE OF CONSULTATION: CHIEF COMPLAINT: Abdominal pain. HISTORY OF PRESENT ILLNESS: The patient is a 71-year-old female who was admitted to the hospital on 11/20/2016 with acute decompensated congestive heart failure. She was diuresed, had a 40-pound weight loss with diuresis. The patient says that when she was admitted, she had abdominal pain. She describes the pain to me as lower left side of her abdomen and left flank. She said the pain was severe at that time and is now mild. She said the pain was worse if she was sitting up. She felt as though her abdomen was swollen and she had to lay back. As she has been diuresed, she said her pain has gotten better and she no longer feels so swollen and she feels as though she can sit up more normally. She says the pain is a sharp pain. She denies any right upper quadrant pain, denies epigastric pain, denies exacerbation of her pain with eating. She says her pain is exacerbated with movement on occasion. She says that the pain pills improve her pain and the diuresis improved her pain. She denies nausea. She ate a solid diet this evening without any problems. PAST MEDICAL HISTORY: 1. Congestive heart failure. 2. Severe pulmonary hypertension. 3. History of acute myocardial infarction. 4. Hyperlipidemia. 5. History of right-sided breast cancer. 6. History of type 2 diabetes mellitus. 7. Hypertension. 8. Coronary artery disease. 9. Lymphedema, right arm. PAST SURGICAL HISTORY: 1. Hysterectomy. 2. Right lumpectomy. 3. Neck surgery. MEDICATIONS: See medication administration record. I have reviewed this list. ALLERGIES: 1. SULFA. 2. ASPIRIN. 3. MORPHINE. 4. TRAZODONE. SOCIAL HISTORY: She is a nonsmoker, she is a nondrinker. She currently lives in a senior living. She has fallen within the last 6 months. In fact, she states she fell in the beginning of October and broke her left hip. FAMILY HISTORY: Noncontributory to this illness. REVIEW OF SYSTEMS: CONSTITUTIONAL: Denies fevers or chills. EYES: Denies abrupt loss of vision or double vision. EARS, NOSE, MOUTH AND THROAT: Denies loss of hearing or ringing in the ears. CARDIOVASCULAR: Currently, denies chest pain or heart palpitations. RESPIRATORY: She complains of a dry cough, but no shortness of breath. She is on oxygen at this time. GASTROINTESTINAL: See HPI. GENITOURINARY: Denies dysuria, hematuria. MUSCULOSKELETAL: No new myalgias or arthralgias. She does have some osteoarthritis. NEUROLOGIC: Denies headaches or seizures. PSYCHIATRIC: Denies depression or anxiety. DERMATOLOGIC: Denies new skin rashes or lesions. PHYSICAL EXAMINATION: VITAL SIGNS: She is afebrile, heart rate is 83, blood pressure is 145/69, respiratory rate 20, O2 sats 93% on 2 liters nasal cannula. GENERAL: This is a well-developed, elderly appearing female who is in no acute distress. EYES: Pupils are round and reactive. Sclerae are nonicteric. HENT: Head is atraumatic. Mucous membranes are moist. Face is symmetric. She is wearing oxygen per nasal cannula. NECK: Supple, without cervical lymphadenopathy, no supraclavicular lymphadenopathy. Neck is nontender without masses. CARDIOVASCULAR: By palpation of her right radial pulse, she has 2+ right radial pulse. She has trace pedal edema and her heart rate is regular rate and rhythm by palpation. RESPIRATORY: Her respirations are nonlabored. CHEST WALL: Nontender to palpation. ABDOMEN: Soft. She has no epigastric or right upper quadrant tenderness on my exam. She does have mild left-sided abdominal tenderness in the left lower quadrant and flank. It is very mild. No rebound or guarding. NEUROLOGICAL: Alert and oriented x 3, no resting tremor. PSYCHIATRIC: She is cooperative with appropriate mood and affect. LABORATORY DATA: Reviewed. IMAGING: Reviewed. I spoke with Dr. Kramer as well as Dr. Dale Cooper about the patient. ASSESSMENT: 1. Cholelithiasis, questionably symptomatic. 2. Congestive heart failure. 3. Severe pulmonary hypertension. 4. Diabetes mellitus type 2. 5. Hypertension. 6. Hyperlipidemia. 7. Coronary artery disease. PLAN: I do agree with Dr. Cooper that her history that she is giving each of us is not typical of symptomatic cholelithiasis or cholecystitis. She has been able to eat a regular diet, snack without any problems or increase in her pain. I think a PIPIDA scan to rule out acute cholecystitis is reasonable. If her PIPIDA scan is negative for acute cholecystitis, I would favor nonoperative intervention at this time. This was discussed with the patient and she understands and is agreeable. LARRY MCKEON MD DR: MISAEL/abraham JOB#: [id number] / [id number] KYLE Paul MD MTDD
[2016-11-27] MEDS: PIPERACILLIN/TAZOBACTAM 2.25 GM in IV NORMAL SALINE 50ML 50 ML IV SCH (06:29)
[2016-11-27 07:00] VITALS: BP 140/74
[2016-11-27] MEDS: IPRATRPIUM/ALBUTEROL 0.5/2.5MG 3 ML NEBU. NEB SCH ×4 (07:20→20:00)
--- NOTE | 2016-11-27 08:53 | PDOC ---
SURGICAL PROGRESS NOTE Subjective Pt out of room for imaging will f/u Vital Signs Vital Signs Date Time Temp Pulse Resp B/P Pulse Ox O2 Delivery O2 Flow Rate FiO2 11/27/16 08:00 Nasal Cannula 3.0 11/27/16 07:00 98.2 88 18 140/74 95 98.2 I&O Intake and Output 11/27/16 07:00 Intake Total 440 ml Output Total 3550 ml Balance -3110 ml Intake Oral 340 ml IV Total 100 ml Output Urine Total 3550 ml Labs Laboratory Tests Test 11/25/16 11:00 11/25/16 15:35 Total Bilirubin 0.7mg/dL (0.2-1.0) Direct Bilirubin 0.4mg/dL (0.0-0.2) Aspartate Amino Transf (AST/SGOT) 26U/L (15-37) Alanine Aminotransferase (ALT/SGPT) 21U/L (14-59) Alkaline Phosphatase 169U/L (46-116) Total Protein 7.2g/dL (6.4-8.2) Albumin 3.2g/dL (3.4-5.0) Amylase Level 57U/L (25-115) Lipase 208U/L (73-393) Free Thyroxine 1.10ng/dL (0.76-1.46) Free Triiodothyronine (T3) pg/mL 1.91pg/mL (2.18-3.98) Prothrombin Time 14.7SEC (11.7-14.0) Prothromb Time International Ratio 1.2 (0.8-1.1) Activated Partial Thromboplast Time 34SEC (24-38) Problem List Problems Medical Problems: (1) Heart failure Status: Acute (2) UTI (urinary tract infection) Status: Acute Problems: TAMARA CERVANTES MD Nov 27, 2016 08:53
[2016-11-27] MEDS: GABAPENTIN 300 MG CAPSULE. PO SCH ×3 (10:01→20:20)
[2016-11-27] MEDS: ENOXAPARIN 40 MG/0.4 ML SYRINGE. SQ SCH (10:01)
[2016-11-27] MEDS: MAGNESIUM OXIDE 400 MG TABLET PO SCH ×3 (10:01→20:20)
[2016-11-27] MEDS: DULOXETINE HCL 30 MG CAPSULE.DR. PO SCH (10:02)
[2016-11-27] MEDS: PANTOPRAZOLE 40 MG TABLET.DR. PO SCH (10:02)
[2016-11-27] MEDS: LISINOPRIL 20 MG TABLET PO SCH (10:02)
[2016-11-27] MEDS: FUROSEMIDE 40 MG TABLET. PO SCH (10:02)
[2016-11-27] MEDS: CARVEDILOL 6.25 MG TABLET. PO SCH ×2 (10:02→17:36)
[2016-11-27] MEDS: AMLODIPINE BESYLATE 10 MG TABLET. PO SCH (10:03)
[2016-11-27] MEDS: NITROFURANTOIN MONOHYD/M-CRYST 100 MG CAPSULE. PO SCH ×2 (10:03→20:20)
[2016-11-27] MEDS: MULTIVITAMIN with MINERAL TABLET. PO SCH (10:03)
[2016-11-27] MEDS: POTASSIUM CHLORIDE 10 MEQ TABLET.ER. PO SCH (10:03)
[2016-11-27] MEDS: OXYCODONE IR 5 MG TABLET. PO SCH ×2 (10:04→20:21)
[2016-11-27] MEDS: METFORMIN 500 MG TABLET. PO SCH (10:04)
[2016-11-27] MEDS: NYSTATIN TOPICAL POWDER 15GM BOTTLE. TP SCH ×2 (10:11→20:21)
[2016-11-27] MEDS: DICLOFENAC SODIUM 1% TOPICAL GEL 100GM TUBE. TP SCH ×4 (10:11→20:21)
--- NOTE | 2016-11-27 10:30 | RAD ---
Hepatobiliary scan Clinical indications: Abdominal pain for 2 weeks. Abnormal gallbladder ultrasound study demonstrated cholelithiasis with gallbladder wall thickening. Technique: After IV infusion of 5 mCi of technetium 99m Choletec, anterior planar images of the upper abdomen were performed in sequential fashion up to 55 minutes. Comparison: Abdomen ultrasound study dated November 25, 2016. No previous hepatobiliary scan. Findings: Homogeneous uptake is seen throughout the liver. Radiotracer activity is seen within the gallbladder by 15 minutes. Radiotracer activity is seen within the duodenum by 20 minutes. IMPRESSION: Normal hepatobiliary scan. Cystic duct is patent.
--- NOTE | 2016-11-27 10:36 | PDOC ---
PULMONARY PROGRESS NOTES Subjective on 02, sob, better, no pain, no cough. Vitals Vital Signs Date Time Temp Pulse Resp B/P Pulse Ox O2 Delivery O2 Flow Rate FiO2 11/27/16 10:04 18 95 Nasal Cannula 3.0 11/27/16 10:03 88 140/74 11/27/16 07:00 98.2 98.2 ROS: No Nausea, No Chest Pain General: Alert, No acute distress HEENT: Other (nc at perrl nose throat clear) Lungs: Crackles, Other (dull at base) Cardiovascular: S1, S2 Abdomen: Soft, Non-tender Neuro Exam: Alert Extremities: No Edema Skin: Warm Labs Laboratory Tests Test 11/25/16 11:00 11/25/16 15:35 Total Bilirubin 0.7mg/dL (0.2-1.0) Direct Bilirubin 0.4mg/dL (0.0-0.2) Aspartate Amino Transf (AST/SGOT) 26U/L (15-37) Alanine Aminotransferase (ALT/SGPT) 21U/L (14-59) Alkaline Phosphatase 169U/L (46-116) Total Protein 7.2g/dL (6.4-8.2) Albumin 3.2g/dL (3.4-5.0) Amylase Level 57U/L (25-115) Lipase 208U/L (73-393) Free Thyroxine 1.10ng/dL (0.76-1.46) Free Triiodothyronine (T3) pg/mL 1.91pg/mL (2.18-3.98) Prothrombin Time 14.7SEC (11.7-14.0) Prothromb Time International Ratio 1.2 (0.8-1.1) Activated Partial Thromboplast Time 34SEC (24-38) Medications Active Scripts Medications Dose Route/Sig Days Date Category Cipro (Ciprofloxacin Hcl) 250 Mg Tablet 1 Tab PO BID 09/10/16 Rx Oxycodone Hcl 5 Mg Capsule 1 Cap PO BID 09/10/16 Rx Carvedilol 6.25 Mg Tablet 1 Tab PO BID 09/10/16 Rx Amlodipine Besylate 10 Mg Tablet 5 Mg PO DAILY 30 09/10/16 Rx Metformin Hcl 1,000 Mg Tablet 500 Mg PO DAILY 30 09/10/16 Rx Docusate Sodium 100 Mg Capsule 1 Cap PO DAILY PRN 09/07/16 Reported Voltaren (Diclofenac Sodium) 100 Gm Gel..gram. 2 Gm TP QID 08/27/16 Reported Multi-Day Vitamins (Multivitamin) 1 Each Tablet 1 Tab PO DAILY 08/27/16 Reported Magnesium Oxide 400 Mg Tablet 2 Tab PO TID 08/27/16 Reported Gabapentin 300 Mg Capsule 300 Mg PO TID 08/27/16 Reported Cymbalta (Duloxetine Hcl) 60 Mg Capsule.dr 1 Cap PO DAILY 08/27/16 Reported Tylenol (Acetaminophen) 325 Mg Tablet 325 Mg PO PRN Q6HRS PRN 03/04/15 Rx Lisinopril 20 Mg Tablet 20 Mg PO 10/01/13 Reported Impression . IMPRESSION: 1. Bibasilar pleural effusion, more on the right than on the left, probably secondary to combination of mild protein calorie malnutrition with low oncotic pressure and may be mild diastolic dysfunction/heart failure. Clinically, less likely pneumonia. 2. Moderate pulmonary hypertension with a pulmonary artery systolic pressure of 60. No significant left ventricular dysfunction. Mild mitral regurgitation. She has tobacco use for 40 years, and I suspect her pulmonary hypertension is secondary to her underlying chronic obstructive pulmonary disease. 3. Recent diagnosis of cholelithiasis. 4. History of coronary artery disease. Plan . RECOMMENDATIONS: 1. The patient states that she is responding to Lasix at this time. I would treat her pleural effusions with some extra doses of IV Lasix. 2. If there is no improvement in chest x-ray, then thoracentesis can be considered. 3. Pulmonary hypertension appears to be secondary, and at this point, I would not recommend doing a right heart catheterization. We will arrange PFTs as an outpatient. No history of thromboembolic disease and clinically unlikely any interstitial lung disease. 4. History of breast cancer with breast lumpectomy in the past. 5. She has been assessed for laparoscopic cholecystectomy. I would recommend followup with an x-ray to see an improvement in pleural effusion before clearing for surgery. sánchez w MARYJO Bowen MD Nov 27, 2016 10:36
[2016-11-27 10:41] VITALS: BP 147/72
[2016-11-27] MEDS: PIPERACILLIN/TAZOBACTAM 3.375 GM in IV NORMAL SALINE 50ML 50 ML IV SCH ×3 (12:01→22:58)
--- NOTE | 2016-11-27 12:14 | PDOC ---
SUBJECTIVE Subjective feels better today, eating lunch , tolerating OBJECTIVE Vital Signs Vital Signs Date Time Temp Pulse Resp B/P Pulse Ox O2 Delivery O2 Flow Rate FiO2 11/27/16 11:15 94 Nasal Cannula 3.0 11/27/16 11:13 18 91 Nasal Cannula 3.0 11/27/16 10:41 98.1 81 20 147/72 91 Nasal Cannula 98.1 11/27/16 10:04 18 95 Nasal Cannula 3.0 11/27/16 10:03 88 140/74 11/27/16 10:02 88 140/74 11/27/16 10:02 88 140/74 11/27/16 08:00 Nasal Cannula 3.0 11/27/16 07:21 Nasal Cannula 3.0 11/27/16 07:00 98.2 88 18 140/74 95 Nasal Cannula 98.2 11/27/16 03:31 Nasal Cannula 2.0 11/27/16 03:05 97.7 75 22 140/70 98 Nasal Cannula 2.0 97.7 11/27/16 02:31 Nasal Cannula 2.0 11/26/16 23:00 97.7 72 22 122/65 96 Nasal Cannula 2.0 97.7 11/26/16 20:40 2.0 11/26/16 20:00 Nasal Cannula 2.0 11/26/16 19:18 96 Nasal Cannula 3.0 11/26/16 19:00 98.9 79 24 146/67 98 Nasal Cannula 2.0 98.9 11/26/16 17:24 77 138/69 11/26/16 17:15 Nasal Cannula 3.0 11/26/16 16:09 93 11/26/16 15:09 Nasal Cannula 2.0 11/26/16 15:07 98.9 83 20 145/69 93 Room Air 98.9 11/26/16 13:06 94 Nasal Cannula 2.0 I & O Intake and Output 11/27/16 07:00 Intake Total 440 ml Output Total 3550 ml Balance -3110 ml Intake Oral 340 ml IV Total 100 ml Output Urine Total 3550 ml PHYSICAL EXAM Physical Exam lungs with few basilar rales heart RRR abd less tender today , +BS ext decrease edema ASSESSMENT/PLAN Assessment/Plan 1- abdominal pain and cholilithiasis , PIPIDA is neg, seems better today , appreciate all j2ee consultant help if she continues to improve hope can avoid surgical intervention 2. Acute diastolic CHF: improved EF 55-60 % 3. Severe pulmonary HTN: PAP 60 mmHg, No prior hx of COPD. suspect RONAL 4. HTN: mildly labile, 5. DM2/HLP: controlled 6. Hypokalemia/hypomagnesemia replaced Problems: KYLE ASHLEY MD Nov 27, 2016 12:14
--- NOTE | 2016-11-27 13:08 | PDOC ---
G I PROGRESS NOTE Reason for Follow-up Nausea/abd pain Subjective Feeling better with diuresis Physical Exam Lungs decreased BS CV S1 S2 ABD +BS, soft, nontender Review of Relevant I have reviewed the following items jose (where applicable) has been applied. Labs Laboratory Tests Test 11/25/16 15:35 Prothrombin Time 14.7SEC (11.7-14.0) Prothromb Time International Ratio 1.2 (0.8-1.1) Activated Partial Thromboplast Time 34SEC (24-38) Microbiology 11/20/16 Urine Culture - Final, Complete 11/20/16 Urine Culture Result 1 (DIRK) - Final, Complete 11/20/16 Antimicrobic Susceptibility - Final, Complete Medications Current Medications Ceftriaxone Sodium (Rocephin 1gm Ivpb For Omni) 50 ml @ 100 mls/hr 1X ONCE IV Last administered on 11/20/16 21:23; Start 11/20/16 at 21:30; Stop 11/20/16 at 21:59; Status DC Oxycodone/ Acetaminophen (Percocet 10/325) 1 tab 1X ONCE PO Last administered on 11/20/16 22:11; Start 11/20/16 at 22:00; Stop 11/20/16 at 22:01; Status DC Albuterol/ Ipratropium (Duoneb) 3 ml RTQID NEB Last administered on 11/27/16 11 :15; Start 11/21/16 at 08:00 Oxycodone HCl (Roxicodone) 5 mg BID PO Last administered on 11/27/16 10:04; Start 11/21/16 at 09:00 Acetaminophen (Tylenol) 325 mg PRN Q6HRS PRN PO MILD PAIN / TEMP; Start at 10:30 Amlodipine Besylate (Norvasc) 5 mg DAILY PO Last administered on 11/22/16 09:53 ; Start 11/21/16 at 12:00; Stop 11/22/16 at 12:41; Status DC Carvedilol (Coreg) 6.25 mg BIDWMEALS PO Last administered on 11/27/16 10:02; Start 11/21/16 at 17:00 Diclofenac Sodium (Voltaren) 2 francisco j QID TP Last administered on 11/27/16 12:02; Start 11/21/16 at 13:00 Docusate Sodium (Colace) 100 mg PRN DAILY PRN PO CONSTIPATION; Start 11/21/16 at 10:30 Lisinopril (Prinivil) 20 mg DAILY PO Last administered on 11/27/16 10:02; Start 11/21/16 at 12:00 Magnesium Oxide (Magnesium Oxide) 400 mg TID PO Last administered on 11/27/16 10:01; Start 11/21/16 at 14:00 Metformin HCl (Glucophage) 500 mg DAILYWBKFT PO Last administered on 11/24/16 09:05; Start 11/21/16 at 12:00; Stop 11/24/16 at 15:57; Status DC Duloxetine HCl (Cymbalta) 60 mg DAILY PO Last administered on 11/27/16 10:02; Start 11/21/16 at 12:00 Gabapentin (Neurontin) 300 mg TID PO Last administered on 11/27/16 10:01; Start 11/21/16 at 14:00 Multivitamins (Thera M Plus) 1 tab DAILY PO Last administered on 11/27/16 10:03 ; Start 11/21/16 at 12:00 Furosemide (Lasix) 40 mg DAILY IVP Last administered on 11/22/16 09:56; Start 11/21/16 at 11:00; Stop 11/22/16 at 12:41; Status DC Nystatin (Nystop) 1 francisco j BID TP Last administered on 11/27/16 10:11; Start at 21:00 Oxycodone HCl (Roxicodone) 5 mg PRN Q4HRS PRN PO SEVERE PAIN Last administered on 11/27/16 02:31; Start 11/21/16 at 23:30 Albuterol/ Ipratropium (Duoneb) 3 ml 1X ONCE NEB Last administered on 04:30; Start 11/22/16 at 05:00; Stop 11/22/16 at 05:01; Status DC Amlodipine Besylate (Norvasc) 10 mg DAILY PO Last administered on 11/27/16 10: 03; Start 11/23/16 at 09:00 Furosemide (Lasix) 40 mg DAILY PO Last administered on 11/27/16 10:02; Start at 09:00 Potassium Chloride (Klor-Con) 40 meq 1X ONCE PO Last administered on 11/23/16 08:41; Start 11/23/16 at 08:15; Stop 11/23/16 at 08:19; Status DC Nitrofurantoin Macrocrystals (Macrobid) 100 mg BID PO Last administered on 10:03; Start 11/23/16 at 10:00; Stop 11/29/16 at 21:01 Potassium Chloride (Klor-Con) 10 meq DAILYWBKFT PO Last administered on 10:03; Start 11/23/16 at 10:00 Iohexol (Omnipaque 240 Mg/ml) 50 ml 1X ONCE PO ; Start 11/24/16 at 16:30; Stop 11/24/16 at 16:31; Status DC Metformin HCl (Glucophage) 500 mg DAILYWBKFT PO Last administered on 11/27/16 10:04; Start 11/27/16 at 08:00 Pantoprazole Sodium 40 mg 40 mg DAILYAC PO Last administered on 11/27/16 10:02 ; Start 11/25/16 at 10:30 Piperacillin Sod/ Tazobactam Sod/ Sodium Chloride (Zosyn/Iv Sodium Chloride 0.9 % 50ml) 50 ml @ 100 mls/hr Q6HRS IV Last administered on 11/27/16 06:29; Start 11/26/16 at 12:00; Stop 11/27/16 at 11:16; Status DC Enoxaparin Sodium (Lovenox 40mg Syringe) 40 mg DAILY SQ Last administered on 10:01; Start 11/26/16 at 12:30 Furosemide (Lasix) 40 mg 1X ONCE IVP Last administered on 11/26/16 17:24; Start 11/26/16 at 17:00; Stop 11/26/16 at 17:01; Status DC Ondansetron HCl 4 mg 4 mg PRN Q6HRS PRN IV NAUSEA/VOMITING Last administered on 11/27/16 03:17; Start 11/26/16 at 17:15 Piperacillin Sod/ Tazobactam Sod/ Sodium Chloride (Zosyn/Iv Sodium Chloride 0.9 % 50ml) 50 ml @ 100 mls/hr Q6HRS IV Last administered on 11/27/16t 12:01; Start 11/27/16 at 12:00 Active Scripts Active Cipro (Ciprofloxacin Hcl) 250 Mg Tablet 1 Tab PO BID Oxycodone Hcl 5 Mg Capsule 1 Cap PO BID Carvedilol 6.25 Mg Tablet 1 Tab PO BID Amlodipine Besylate 10 Mg Tablet 5 Mg PO DAILY 30 Days Metformin Hcl 1,000 Mg Tablet 500 Mg PO DAILY 30 Days Tylenol (Acetaminophen) 325 Mg Tablet 325 Mg PO PRN Q6HRS PRN Reported Docusate Sodium 100 Mg Capsule 1 Cap PO DAILY PRN Voltaren (Diclofenac Sodium) 100 Gm Gel..gram. 2 Gm TP QID Multi-Day Vitamins (Multivitamin) 1 Each Tablet 1 Tab PO DAILY Magnesium Oxide 400 Mg Tablet 2 Tab PO TID Gabapentin 300 Mg Capsule 300 Mg PO TID Cymbalta (Duloxetine Hcl) 60 Mg Capsule.dr 1 Cap PO DAILY Lisinopril 20 Mg Tablet 20 Mg PO Vitals/I & O Vital Sign - Last 24 Hours 11/26/16 11/26/16 11/26/16 11/26/16 15:07 15:09 16:09 17:15 Temp 98.9 98.9 Pulse 83 Resp 20 B/P 145/69 Pulse Ox 93 93 O2 Delivery Room Air Nasal Cannula Nasal Cannula O2 Flow Rate 2.0 3.0 11/26/16 11/26/16 11/26/16 11/26/16 17:24 19:00 19:18 20:00 Temp 98.9 98.9 Pulse 77 79 Resp 24 B/P 138/69 146/67 Pulse Ox 98 96 O2 Delivery Nasal Cannula Nasal Cannula Nasal Cannula O2 Flow Rate 2.0 3.0 2.0 11/26/16 11/26/16 11/27/16 11/27/16 20:40 23:00 02:31 03:05 Temp 97.7 97.7 97.7 97.7 Pulse 72 75 Resp 22 22 B/P 122/65 140/70 Pulse Ox 96 98 O2 Delivery Nasal Cannula Nasal Cannula Nasal Cannula O2 Flow Rate 2.0 2.0 2.0 2.0 11/27/16 11/27/16 11/27/16 11/27/16 03:31 07:00 07:21 08:00 Temp 98.2 98.2 Pulse 88 Resp 18 B/P 140/74 Pulse Ox 95 O2 Delivery Nasal Cannula Nasal Cannula Nasal Cannula Nasal Cannula O2 Flow Rate 2.0 3.0 3.0 11/27/16 11/27/16 11/27/16 11/27/16 10:02 10:02 10:03 10:04 Pulse 88 88 88 Resp 18 B/P 140/74 140/74 140/74 Pulse Ox 95 O2 Delivery Nasal Cannula O2 Flow Rate 3.0 11/27/16 11/27/16 11/27/16 10:41 11:13 11:15 Temp 98.1 98.1 Pulse 81 Resp 20 18 B/P 147/72 Pulse Ox 91 91 94 O2 Delivery Nasal Cannula Nasal Cannula Nasal Cannula O2 Flow Rate 3.0 3.0 Intake and Output 11/26/16 11/26/16 11/27/16 15:00 23:00 07:00 Intake Total 390 ml 50 ml Output Total 1800 ml 1750 ml Balance -1410 ml -1700 ml Problem List Problems Medical Problems: (1) Heart failure Status: Acute (2) UTI (urinary tract infection) Status: Acute Assessment Nausea- with cholelithiasis, cystic duct is patent on HIDA scan, medical therapy with improvement with diuresis recommended. ROCIO CAROLINA MD Nov 27, 2016 13:08
[2016-11-27 15:27] VITALS: BP 114/55
[2016-11-27 19:00] VITALS: BP 108/54
[2016-11-27 23:33] VITALS: BP 103/61
[2016-11-28 03:00] VITALS: BP 110/59
[2016-11-28] MEDS: OXYCODONE IR 5 MG TABLET. PO PRN ×2 (04:55→16:22)
[2016-11-28] MEDS: PIPERACILLIN/TAZOBACTAM 3.375 GM in IV NORMAL SALINE 50ML 50 ML IV SCH ×3 (05:03→18:13)
[2016-11-28 07:00] VITALS: BP 105/58
[2016-11-28] MEDS: IPRATRPIUM/ALBUTEROL 0.5/2.5MG 3 ML NEBU. NEB SCH ×4 (07:33→18:10)
[2016-11-28] MEDS: DICLOFENAC SODIUM 1% TOPICAL GEL 100GM TUBE. TP SCH ×4 (08:46→20:50)
[2016-11-28] MEDS: ENOXAPARIN 40 MG/0.4 ML SYRINGE. SQ SCH (08:47)
[2016-11-28] MEDS: NYSTATIN TOPICAL POWDER 15GM BOTTLE. TP SCH ×2 (08:47→20:50)
[2016-11-28] MEDS: MAGNESIUM OXIDE 400 MG TABLET PO SCH ×3 (08:48→20:49)
[2016-11-28] MEDS: LISINOPRIL 20 MG TABLET PO SCH (08:48)
[2016-11-28] MEDS: DULOXETINE HCL 30 MG CAPSULE.DR. PO SCH (08:48)
[2016-11-28] MEDS: AMLODIPINE BESYLATE 10 MG TABLET. PO SCH (08:48)
[2016-11-28] MEDS: NITROFURANTOIN MONOHYD/M-CRYST 100 MG CAPSULE. PO SCH ×2 (08:48→20:49)
[2016-11-28] MEDS: OXYCODONE IR 5 MG TABLET. PO SCH ×2 (08:49→20:49)
[2016-11-28] MEDS: GABAPENTIN 300 MG CAPSULE. PO SCH ×3 (08:49→20:49)
[2016-11-28] MEDS: METFORMIN 500 MG TABLET. PO SCH (08:49)
[2016-11-28] MEDS: FUROSEMIDE 40 MG TABLET. PO SCH (08:49)
[2016-11-28] MEDS: PANTOPRAZOLE 40 MG TABLET.DR. PO SCH (08:49)
[2016-11-28] MEDS: POTASSIUM CHLORIDE 10 MEQ TABLET.ER. PO SCH (08:49)
[2016-11-28] MEDS: MULTIVITAMIN with MINERAL TABLET. PO SCH (08:49)
[2016-11-28] MEDS: CARVEDILOL 6.25 MG TABLET. PO SCH ×2 (08:50→16:17)
--- NOTE | 2016-11-28 10:02 | PDOC ---
PULMONARY PROGRESS NOTES Subjective on 02, sob, better, has some pain, no cough. Vitals Vital Signs Date Time Temp Pulse Resp B/P Pulse Ox O2 Delivery O2 Flow Rate FiO2 11/28/16 08:50 76 105/58 11/28/16 08:49 18 95 Nasal Cannula 3.0 11/28/16 07:00 98.0 98.0 ROS: No Nausea, No Chest Pain, No Increase Cough General: Alert, No acute distress HEENT: Other (nc at perrl nose throat clear) Lungs: Crackles, Other (dull at base) Cardiovascular: S1, S2 Abdomen: Soft, Non-tender Neuro Exam: Alert Extremities: No Edema Skin: Warm Medications Active Scripts Medications Dose Route/Sig Days Date Category Cipro (Ciprofloxacin Hcl) 250 Mg Tablet 1 Tab PO BID 09/10/16 Rx Oxycodone Hcl 5 Mg Capsule 1 Cap PO BID 09/10/16 Rx Carvedilol 6.25 Mg Tablet 1 Tab PO BID 09/10/16 Rx Amlodipine Besylate 10 Mg Tablet 5 Mg PO DAILY 30 09/10/16 Rx Metformin Hcl 1,000 Mg Tablet 500 Mg PO DAILY 30 09/10/16 Rx Docusate Sodium 100 Mg Capsule 1 Cap PO DAILY PRN 09/07/16 Reported Voltaren (Diclofenac Sodium) 100 Gm Gel..gram. 2 Gm TP QID 08/27/16 Reported Multi-Day Vitamins (Multivitamin) 1 Each Tablet 1 Tab PO DAILY 08/27/16 Reported Magnesium Oxide 400 Mg Tablet 2 Tab PO TID 08/27/16 Reported Gabapentin 300 Mg Capsule 300 Mg PO TID 08/27/16 Reported Cymbalta (Duloxetine Hcl) 60 Mg Capsule.dr 1 Cap PO DAILY 08/27/16 Reported Tylenol (Acetaminophen) 325 Mg Tablet 325 Mg PO PRN Q6HRS PRN 03/04/15 Rx Lisinopril 20 Mg Tablet 20 Mg PO 10/01/13 Reported Impression . IMPRESSION: 1. Bibasilar pleural effusion, more on the right than on the left, probably secondary to combination of mild protein calorie malnutrition with low oncotic pressure and may be mild diastolic dysfunction/heart failure. Clinically, less likely pneumonia. 2. Moderate pulmonary hypertension with a pulmonary artery systolic pressure of 60. No significant left ventricular dysfunction. Mild mitral regurgitation. She has tobacco use for 40 years, and I suspect her pulmonary hypertension is secondary to her underlying chronic obstructive pulmonary disease. 3. Recent diagnosis of cholelithiasis. 4. History of coronary artery disease. Plan . RECOMMENDATIONS: 1. keep I<O, lasix, monitor k, cr 2. If there is no improvement in chest x-ray, then thoracentesis can be considered. 3. Pulmonary hypertension appears to be secondary, and at this point, I would not recommend doing a right heart catheterization. We will arrange PFTs as an outpatient. No history of thromboembolic disease and clinically unlikely any interstitial lung disease. 4. History of breast cancer with breast lumpectomy in the past. 5. She has been assessed for laparoscopic cholecystectomy. I would recommend followup with an x-ray to see an improvement in pleural effusion before clearing for surgery. discussed w MARYJO Bowen MD Nov 28, 2016 10:02
--- NOTE | 2016-11-28 10:11 | RAD ---
Portable AP upright chest x-ray performed at 0412 Indications: Pleural effusions. Follow-up study. Comparison: November 20, 2016. Findings: Again seen is a moderate-sized right-sided pleural effusion with slight improvement. Associated right lung base compressive atelectasis or infiltrate is unchanged. Previously seen left-sided pleural effusion and left lung base infiltrate or atelectasis has resolved. There has been an increase in bilateral perihilar interstitial pulmonary edema however along with mild vascular congestion. No pneumothorax is seen. Heart size and mediastinum are stable. Right axillary node dissection is evident. IMPRESSION: New finding of mild bilateral interstitial pulmonary edema with vascular congestion. Resolution of left pleural effusion and left lung base infiltrate or atelectasis. Persistent moderate size right-sided pleural effusion with mild improvement.
[2016-11-28 11:16] VITALS: BP 105/66
--- NOTE | 2016-11-28 12:06 | PDOC ---
G I PROGRESS NOTE Reason for Follow-up Abd pain/nausea Subjective Breathing better Physical Exam Lungs decreased BS CV S1 S2 ABD +BS, soft, nontender Review of Relevant I have reviewed the following items jose (where applicable) has been applied. Labs Microbiology 11/20/16 Urine Culture - Final, Complete 11/20/16 Urine Culture Result 1 (DIRK) - Final, Complete 11/20/16 Antimicrobic Susceptibility - Final, Complete Medications Current Medications Ceftriaxone Sodium (Rocephin 1gm Ivpb For Omni) 50 ml @ 100 mls/hr 1X ONCE IV Last administered on 11/20/16 21:23; Start 11/20/16 at 21:30; Stop 11/20/16 at 21:59; Status DC Oxycodone/ Acetaminophen (Percocet 10/325) 1 tab 1X ONCE PO Last administered on 11/20/16 22:11; Start 11/20/16 at 22:00; Stop 11/20/16 at 22:01; Status DC Albuterol/ Ipratropium (Duoneb) 3 ml RTQID NEB Last administered on 11/28/16 11 :20; Start 11/21/16 at 08:00 Oxycodone HCl (Roxicodone) 5 mg BID PO Last administered on 11/28/16 08:49; Start 11/21/16 at 09:00 Acetaminophen (Tylenol) 325 mg PRN Q6HRS PRN PO MILD PAIN / TEMP; Start at 10:30 Amlodipine Besylate (Norvasc) 5 mg DAILY PO Last administered on 11/22/16 09:53 ; Start 11/21/16 at 12:00; Stop 11/22/16 at 12:41; Status DC Carvedilol (Coreg) 6.25 mg BIDWMEALS PO Last administered on 11/28/16 08:50; Start 11/21/16 at 17:00 Diclofenac Sodium (Voltaren) 2 francisco j QID TP Last administered on 11/28/16 08:46; Start 11/21/16 at 13:00 Docusate Sodium (Colace) 100 mg PRN DAILY PRN PO CONSTIPATION; Start 11/21/16 at 10:30 Lisinopril (Prinivil) 20 mg DAILY PO Last administered on 11/28/16 08:48; Start 11/21/16 at 12:00 Magnesium Oxide (Magnesium Oxide) 400 mg TID PO Last administered on 11/28/16 08:48; Start 11/21/16 at 14:00 Metformin HCl (Glucophage) 500 mg DAILYWBKFT PO Last administered on 11/24/16 09:05; Start 11/21/16 at 12:00; Stop 11/24/16 at 15:57; Status DC Duloxetine HCl (Cymbalta) 60 mg DAILY PO Last administered on 11/28/16 08:48; Start 11/21/16 at 12:00 Gabapentin (Neurontin) 300 mg TID PO Last administered on 11/28/16 08:49; Start 11/21/16 at 14:00 Multivitamins (Thera M Plus) 1 tab DAILY PO Last administered on 11/28/16 08:49 ; Start 11/21/16 at 12:00 Furosemide (Lasix) 40 mg DAILY IVP Last administered on 11/22/16 09:56; Start 11/21/16 at 11:00; Stop 11/22/16 at 12:41; Status DC Nystatin (Nystop) 1 francisco j BID TP Last administered on 11/28/16 08:47; Start at 21:00 Oxycodone HCl (Roxicodone) 5 mg PRN Q4HRS PRN PO SEVERE PAIN Last administered on 11/28/16 04:55; Start 11/21/16 at 23:30 Albuterol/ Ipratropium (Duoneb) 3 ml 1X ONCE NEB Last administered on 04:30; Start 11/22/16 at 05:00; Stop 11/22/16 at 05:01; Status DC Amlodipine Besylate (Norvasc) 10 mg DAILY PO Last administered on 11/28/16 08: 48; Start 11/23/16 at 09:00 Furosemide (Lasix) 40 mg DAILY PO Last administered on 11/28/16 08:49; Start at 09:00 Potassium Chloride (Klor-Con) 40 meq 1X ONCE PO Last administered on 11/23/16 08:41; Start 11/23/16 at 08:15; Stop 11/23/16 at 08:19; Status DC Nitrofurantoin Macrocrystals (Macrobid) 100 mg BID PO Last administered on 08:48; Start 11/23/16 at 10:00; Stop 11/29/16 at 21:01 Potassium Chloride (Klor-Con) 10 meq DAILYWBKFT PO Last administered on 08:49; Start 11/23/16 at 10:00 Iohexol (Omnipaque 240 Mg/ml) 50 ml 1X ONCE PO ; Start 11/24/16 at 16:30; Stop 11/24/16 at 16:31; Status DC Metformin HCl (Glucophage) 500 mg DAILYWBKFT PO Last administered on 11/28/16 08:49; Start 11/27/16 at 08:00 Pantoprazole Sodium 40 mg 40 mg DAILYAC PO Last administered on 11/28/16 08:49 ; Start 11/25/16 at 10:30 Piperacillin Sod/ Tazobactam Sod/ Sodium Chloride (Zosyn/Iv Sodium Chloride 0.9 % 50ml) 50 ml @ 100 mls/hr Q6HRS IV Last administered on 11/27/16 06:29; Start 11/26/16 at 12:00; Stop 11/27/16 at 11:16; Status DC Enoxaparin Sodium (Lovenox 40mg Syringe) 40 mg DAILY SQ Last administered on 08:47; Start 11/26/16 at 12:30 Furosemide (Lasix) 40 mg 1X ONCE IVP Last administered on 11/26/16 17:24; Start 11/26/16 at 17:00; Stop 11/26/16 at 17:01; Status DC Ondansetron HCl 4 mg 4 mg PRN Q6HRS PRN IV NAUSEA/VOMITING Last administered on 11/27/16 03:17; Start 11/26/16 at 17:15 Piperacillin Sod/ Tazobactam Sod/ Sodium Chloride (Zosyn/Iv Sodium Chloride 0.9 % 50ml) 50 ml @ 100 mls/hr Q6HRS IV Last administered on 11/28/16 05:03; Start 11/27/16 at 12:00 Active Scripts Active Cipro (Ciprofloxacin Hcl) 250 Mg Tablet 1 Tab PO BID Oxycodone Hcl 5 Mg Capsule 1 Cap PO BID Carvedilol 6.25 Mg Tablet 1 Tab PO BID Amlodipine Besylate 10 Mg Tablet 5 Mg PO DAILY 30 Days Metformin Hcl 1,000 Mg Tablet 500 Mg PO DAILY 30 Days Tylenol (Acetaminophen) 325 Mg Tablet 325 Mg PO PRN Q6HRS PRN Reported Docusate Sodium 100 Mg Capsule 1 Cap PO DAILY PRN Voltaren (Diclofenac Sodium) 100 Gm Gel..gram. 2 Gm TP QID Multi-Day Vitamins (Multivitamin) 1 Each Tablet 1 Tab PO DAILY Magnesium Oxide 400 Mg Tablet 2 Tab PO TID Gabapentin 300 Mg Capsule 300 Mg PO TID Cymbalta (Duloxetine Hcl) 60 Mg Capsule. 1 Cap PO DAILY Lisinopril 20 Mg Tablet 20 Mg PO Vitals/I & O Vital Sign - Last 24 Hours 11/27/16 11/27/16 11/27/16 11/27/16 15:27 17:00 17:36 17:38 Temp 98.2 98.2 Pulse 76 76 Resp B/P 114/55 114/55 Pulse Ox 94 93 93 O2 Delivery Nasal Cannula Nasal Cannula Nasal Cannula O2 Flow Rate 3.0 3.0 11/27/16 11/27/16 11/27/16 11/27/16 19:00 19:23 20:02 20:21 Temp 97.9 97.9 Pulse 74 Resp B/P 108/54 Pulse Ox 100 O2 Delivery Nasal Cannula Nasal Cannula Nasal Cannula Nasal Cannula O2 Flow Rate 2.0 2.0 3.0 11/27/16 11/27/16 11/28/16 11/28/16 22:58 23:33 03:00 04:55 Temp 97.7 97.7 97.7 97.7 Pulse 72 82 Resp B/P 103/61 110/59 Pulse Ox 95 98 O2 Delivery Nasal Cannula Nasal Cannula Nasal Cannula Nasal Cannula O2 Flow Rate 3.0 2.0 2.0 3.0 11/28/16 11/28/16 11/28/16 11/28/16 05:55 07:00 07:35 08:00 Temp 98.0 98.0 Pulse 76 Resp B/P 105/58 Pulse Ox 95 95 O2 Delivery Nasal Cannula Nasal Cannula Nasal Cannula Nasal Cannula O2 Flow Rate 3.0 3.0 3.0 11/28/16 11/28/16 11/28/169/17 08:48 08:48 08:49 08:50 Pulse 76 76 76 Resp 18 B/P 105/58 105/58 105/58 Pulse Ox 95 O2 Delivery Nasal Cannula O2 Flow Rate 3.0 11/28/16 11/28/16 11/28/16 10:39 11:16 11:20 Temp 97.8 97.8 Pulse 75 Resp 18 18 B/P 105/66 Pulse Ox 95 90 96 O2 Delivery Nasal Cannula Nasal Cannula Nasal Cannula O2 Flow Rate 3.0 3.0 Intake and Output 11/27/16 11/27/16 11/28/16 15:00 23:00 07:00 Intake Total 50 ml 150 ml 400 ml Output Total 1300 ml 950 ml Balance 50 ml -1150 ml -550 ml Problem List Problems Medical Problems: (1) Heart failure Status: Acute (2) UTI (urinary tract infection) Status: Acute Assessment Nausea- with cholelithiasis, medical therapy with diuresis, CPM ROCIO CAROLINA MD Nov 28, 2016 12:06
--- NOTE | 2016-11-28 13:05 | PDOC ---
SURGICAL PROGRESS NOTE Subjective Pt without new c/o, no abd pain Vital Signs Vital Signs Date Time Temp Pulse Resp B/P Pulse Ox O2 Delivery O2 Flow Rate FiO2 11/28/16 11:20 96 Nasal Cannula 3.0 11/28/16 11:16 97.8 75 18 105/66 97.8 I&O Intake and Output 11/28/16 07:00 Intake Total 600 ml Output Total 2250 ml Balance -1650 ml Intake Oral 400 ml IV Total 100 ml Blood Product IV Normal Saline Flush 100 ml Output Urine Total 2250 ml General: Alert, Oriented X3, Cooperative, No acute distress Abdomen: Soft, No tenderness Problem List Problems Medical Problems: (1) Heart failure Status: Acute (2) UTI (urinary tract infection) Status: Acute Assessment/Plan cholelithiasis PIPPDA wnl, cystic duct open pt poor surgical candidate cont supportive car no surgical plans Problems: TAMARA CERVANTES MD Nov 28, 2016 13:05
--- NOTE | 2016-11-28 14:43 | PDOC ---
SUBJECTIVE Subjective feels better OBJECTIVE Vital Signs Vital Signs Date Time Temp Pulse Resp B/P Pulse Ox O2 Delivery O2 Flow Rate FiO2 11/28/16 11:20 96 Nasal Cannula 3.0 11/28/16 11:16 97.8 75 18 105/66 90 Nasal Cannula 97.8 11/28/16 10:39 18 95 Nasal Cannula 3.0 11/28/16 08:50 76 105/58 11/28/16 08:49 18 95 Nasal Cannula 3.0 11/28/16 08:48 76 105/58 11/28/16 08:48 76 105/58 11/28/16 08:00 Nasal Cannula 3.0 11/28/16 07:35 95 Nasal Cannula 3.0 11/28/16 07:00 98.0 76 18 105/58 95 Nasal Cannula 98.0 11/28/16 05:55 20 Nasal Cannula 3.0 11/28/16 04:55 18 Nasal Cannula 3.0 11/28/16 03:00 97.7 82 20 110/59 98 Nasal Cannula 2.0 97.7 11/27/16 23:33 97.7 72 21 103/61 95 Nasal Cannula 2.0 97.7 11/27/16 22:58 Nasal Cannula 3.0 11/27/16 20:21 18 Nasal Cannula 11/27/16 20:02 Nasal Cannula 3.0 11/27/16 19:23 Nasal Cannula 2.0 11/27/16 19:00 97.9 74 21 108/54 100 Nasal Cannula 2.0 97.9 11/27/16 17:38 18 93 Nasal Cannula 3.0 11/27/16 17:36 76 114/55 11/27/16 17:00 93 Nasal Cannula 3.0 11/27/16 15:27 98.2 76 20 114/55 94 Nasal Cannula 98.2 I & O Intake and Output 11/28/16 07:00 Intake Total 600 ml Output Total 2250 ml Balance -1650 ml Intake Oral 400 ml IV Total 100 ml Blood Product IV Normal Saline Flush 100 ml Output Urine Total 2250 ml PHYSICAL EXAM Physical Exam abdomen not tender today,+ BS heart RRR lungs decrease BS right base ext no edema ASSESSMENT/PLAN Assessment/Plan 1- abdominal pain and cholilithiasis , PIPIDA is neg, no surgery 2. Acute diastolic CHF: improved EF 55-60 % 3. Severe pulmonary HTN: PAP 60 mmHg, No prior hx of COPD. suspect RONAL 4. HTN: mildly labile, 5. DM2/HLP: controlled 6. Hypokalemia/hypomagnesemia replaced plan home in AM if continue improving Problems: KYLE ASHLEY MD Nov 28, 2016 14:43
[2016-11-28 15:22] VITALS: BP 101/46
[2016-11-28 19:15] VITALS: BP 133/52
[2016-11-28] MEDS ORDERED: FENTANYL PF 100 MCG/2 ML VIAL. IV PRN (19:30)
[2016-11-28 23:15] VITALS: BP 103/42
[2016-11-29 03:25] VITALS: BP 136/59
[2016-11-29 04:58] LABS: HEMOGLOBIN 12.4 g/dL (12.0-15.5); RED BLOOD COUNT 4.79 x10^6/uL (3.50-5.40); RED CELL DISTRIBUTION WIDTH 16.4 % (11.5-14.5); WHITE BLOOD COUNT 5.8 x10^3/uL (4.0-11.0)
[2016-11-29 05:12] LABS: ALBUMIN/GLOBULIN RATIO 0.9 (1.0-1.7); CREATININE 1.1 mg/dL (0.6-1.0); GFR 48.7; POTASSIUM 3.8 mmol/L (3.5-5.1); TOTAL BILIRUBIN 0.7 mg/dL (0.2-1.0); TOTAL PROTEIN 6.5 g/dL (6.4-8.2)
[2016-11-29 05:19] LABS: CREATININE 1.2 mg/dL (0.6-1.0)
[2016-11-29] MEDS: PIPERACILLIN/TAZOBACTAM 3.375 GM in IV NORMAL SALINE 50ML 50 ML IV SCH ×4 (06:02→12:00)
[2016-11-29 07:51] VITALS: BP 146/78
[2016-11-29] MEDS: IPRATRPIUM/ALBUTEROL 0.5/2.5MG 3 ML NEBU. NEB SCH ×2 (08:00→11:28)
[2016-11-29] MEDS: OXYCODONE IR 5 MG TABLET. PO SCH ×2 (09:00→10:18)
--- NOTE | 2016-11-29 09:16 | PDOC ---
Provider Note Provider Note said she had pain yesterday--points to her left chest/left lateral chest wall and left flank--was moderate to severe georgie po well no RUQ or epigastric pain afeb vss alert, no distress abd soft nd nt a/p cholelithiasis. distribution of her pain is not c/w sx cholelithiasis. no surg plans. agree with dc plans. i will sign off. thank you and please call with questions. LARRY MCKEON MD Nov 29, 2016 09:16
[2016-11-29] MEDS: GABAPENTIN 300 MG CAPSULE. PO SCH (10:01)
[2016-11-29] MEDS: AMLODIPINE BESYLATE 10 MG TABLET. PO SCH (10:02)
[2016-11-29] MEDS: NITROFURANTOIN MONOHYD/M-CRYST 100 MG CAPSULE. PO SCH (10:02)
[2016-11-29] MEDS: POTASSIUM CHLORIDE 10 MEQ TABLET.ER. PO SCH (10:02)
[2016-11-29] MEDS: PANTOPRAZOLE 40 MG TABLET.DR. PO SCH (10:03)
[2016-11-29] MEDS: DULOXETINE HCL 30 MG CAPSULE.DR. PO SCH (10:03)
[2016-11-29] MEDS: FUROSEMIDE 40 MG TABLET. PO SCH (10:03)
[2016-11-29] MEDS: MULTIVITAMIN with MINERAL TABLET. PO SCH (10:03)
[2016-11-29] MEDS: LISINOPRIL 20 MG TABLET PO SCH (10:03)
[2016-11-29] MEDS: CARVEDILOL 6.25 MG TABLET. PO SCH (10:03)
[2016-11-29] MEDS: ENOXAPARIN 40 MG/0.4 ML SYRINGE. SQ SCH (10:04)
[2016-11-29] MEDS: MAGNESIUM OXIDE 400 MG TABLET PO SCH (10:07)
[2016-11-29] MEDS: METFORMIN 500 MG TABLET. PO SCH (10:08)
--- NOTE | 2016-11-29 10:11 | PDOC ---
SUBJECTIVE Subjective feels better, had pain last night but seem on left side, feels better today , no surgery planned OBJECTIVE Vital Signs Vital Signs Date Time Temp Pulse Resp B/P Pulse Ox O2 Delivery O2 Flow Rate FiO2 11/29/16 10:03 77 146/78 11/29/16 10:03 77 146/78 11/29/16 10:02 77 146/78 11/29/16 08:00 97 Nasal Cannula 3.0 11/29/16 07:51 98.3 77 20 146/78 94 Nasal Cannula 98.3 11/29/16 07:30 Nasal Cannula 3.0 11/29/16 03:25 98.3 73 20 136/59 95 Nasal Cannula 2.0 98.3 11/28/16 23:15 98.4 80 20 103/42 92 Nasal Cannula 2.0 98.4 11/28/16 21:49 93 Nasal Cannula 3.0 11/28/16 20:49 93 Nasal Cannula 3.0 11/28/16 20:08 93 Nasal Cannula 3.0 11/28/16 20:00 Nasal Cannula 3.0 11/28/16 19:38 93 Nasal Cannula 3.0 11/28/16 19:15 98.0 74 22 133/52 92 Nasal Cannula 2.0 98.0 11/28/16 17:47 18 93 Nasal Cannula 3.0 11/28/16 16:22 18 93 Nasal Cannula 3.0 11/28/16 16:17 76 101/46 11/28/16 15:22 97.6 76 17 101/46 93 Nasal Cannula 97.6 11/28/16 15:10 95 Nasal Cannula 3.0 11/28/16 11:20 96 Nasal Cannula 3.0 11/28/16 11:16 97.8 75 18 105/66 90 Nasal Cannula 97.8 11/28/16 10:39 18 I & O Intake and Output 11/29/16 07:00 Intake Total 1480 ml Output Total 2800 ml Balance -1320 ml Intake Oral 1280 ml IV Total 100 ml Other 100 ml Output Urine Total 2800 ml PHYSICAL EXAM Physical Exam lungs much better still mild decrease BS R base heart RRR abd soft , less tender much better ext no edema ASSESSMENT/PLAN Assessment/Plan plan discharge and f/u out pt Problems: COMMENT Lab Laboratory Tests Test 11/29/16 04:30 White Blood Count 5.8x10^3/uL (4.0-11.0) Red Blood Count 4.79x10^6/uL (3.50-5.40) Hemoglobin 12.4g/dL (12.0-15.5) Hematocrit 40.0% (36.0-47.0) Mean Corpuscular Volume 83fL (79-100) Mean Corpuscular Hemoglobin 26pg (25-35) Mean Corpuscular Hemoglobin Concent 31g/dL (31-37) Red Cell Distribution Width 16.4% (11.5-14.5) Platelet Count 170x10^3/uL (140-400) Sodium Level 142mmol/L (136-145) Potassium Level 3.8mmol/L (3.5-5.1) Chloride Level 99mmol/L (98-107) Carbon Dioxide Level 37mmol/L (21-32) Anion Gap 6 (6-14) Blood Urea Nitrogen 13mg/dL (7-20) Creatinine 1.1mg/dL (0.6-1.0) Estimated GFR (Cockcroft-Gault) 48.7 BUN/Creatinine Ratio 12 (6-20) Glucose Level 92mg/dL (70-99) Calcium Level 9.0mg/dL (8.5-10.1) Total Bilirubin 0.7mg/dL (0.2-1.0) Aspartate Amino Transf (AST/SGOT) 21U/L (15-37) Alanine Aminotransferase (ALT/SGPT) 17U/L (14-59) Alkaline Phosphatase 141U/L (46-116) Total Protein 6.5g/dL (6.4-8.2) Albumin 3.0g/dL (3.4-5.0) Albumin/Globulin Ratio 0.9 (1.0-1.7) KYLE ASHLEY MD Nov 29, 2016 10:11
[2016-11-29] MEDS: NYSTATIN TOPICAL POWDER 15GM BOTTLE. TP SCH (10:14)
[2016-11-29] MEDS: DICLOFENAC SODIUM 1% TOPICAL GEL 100GM TUBE. TP SCH (10:14)
[2016-11-29 10:45] VITALS: BP 124/62
[2016-11-29] MEDS ORDERED: POTA10TA12 PO (10:46)
[2016-11-29] MEDS ORDERED: PANT40TA5 PO (10:46)
[2016-11-29] MEDS ORDERED: AMLO10TA2 PO (10:46)
[2016-11-29] MEDS ORDERED: FURO40TA4 PO (10:46)
--- NOTE | 2016-11-29 14:06 | PDOC ---
Subjective: Subjective: Feeling better, dressed to DC. Objective: Vital Signs: Vital Signs Date Time Temp Pulse Resp B/P Pulse Ox O2 Delivery O2 Flow Rate FiO2 11/29/16 11:29 Nasal Cannula 3.0 11/29/16 11:15 18 98 11/29/16 10:45 98.2 74 124/62 98.2 Labs: Laboratory Tests Test 11/29/16 04:30 White Blood Count 5.8x10^3/uL Red Blood Count 4.79x10^6/uL Hemoglobin 12.4g/dL Hematocrit 40.0% Mean Corpuscular Volume 83fL Mean Corpuscular Hemoglobin 26pg Mean Corpuscular Hemoglobin Concent 31g/dL Red Cell Distribution Width 16.4% Platelet Count 170x10^3/uL Sodium Level 142mmol/L Potassium Level 3.8mmol/L Chloride Level 99mmol/L Carbon Dioxide Level 37mmol/L Anion Gap 6 Blood Urea Nitrogen 13mg/dL Creatinine 1.1mg/dL Estimated GFR (Cockcroft-Gault) 48.7 BUN/Creatinine Ratio 12 Glucose Level 92mg/dL Calcium Level 9.0mg/dL Total Bilirubin 0.7mg/dL Aspartate Amino Transf (AST/SGOT) 21U/L Alanine Aminotransferase (ALT/SGPT) 17U/L Alkaline Phosphatase 141U/L Total Protein 6.5g/dL Albumin 3.0g/dL Albumin/Globulin Ratio 0.9 Imaging: HIDA IMPRESSION: Normal hepatobiliary scan. Cystic duct is patent. PE: GEN: NAD NEURO/PSYCH: A & O 3 A/P: Abd pain - improved -cholelithiasis, normal HIDA ---> pain not c/w gallbladder -on PPI -- Plans to DC today, okay per GI. DANI CANTU Nov 29, 2016 14:06
--- NOTE | 2016-11-30 10:10 | PDOC3 ---
Discharge Summary* Date of Admission: Nov 20, 2016 Date of Discharge: Nov 29, 2016 Admitting Diagnosis Problems Medical Problems: (1) Heart failure Status: Acute (2) Urinary tract infection Status: Acute (3) UTI (urinary tract infection) Status: Acute Final Diagnosis 1- abdominal pain and cholilithiasis , PIPIDA is neg, medical management 2. Acute diastolic CHF: improved EF 55-60 % 3. Severe pulmonary HTN: PAP 60 mmHg, No prior hx of COPD. suspect RONAL 4. HTN: mildly labile, 5. DM2/HLP: controlled 6. Hypokalemia/hypomagnesemia replaced Problems Medical Problems: (1) Heart failure Status: Acute (2) Urinary tract infection Status: Acute (3) UTI (urinary tract infection) Status: Acute CONSULTS cardiology, pulmonary, GI, surgery Procedures echocardiogram, CXR, acute abd sereis, CT abd and pelvis, abd US, PIPIDA scan Brief Hospital Course Ms. Mann is a 71 old [sex] who presented with [ ] Disposition/Orders: D/C to Another Facility CONDITION AT DISCHARGE: Improved Diet: Cardiac, Consistent Carbohydrate Scheduled Amlodipine Besylate (Amlodipine Besylate) 10 MG PO DAILY Carvedilol (Carvedilol) 1 TAB PO BID Diclofenac Sodium (Voltaren) 2 GM TP QID (Reported) Duloxetine Hcl (Cymbalta) 1 CAP PO DAILY (Reported) Furosemide (Furosemide) 40 MG PO DAILY Gabapentin (Gabapentin) 300 MG PO TID (Reported) Magnesium Oxide (Magnesium Oxide) 2 TAB PO TID (Reported) Metformin Hcl (Metformin Hcl) 500 MG PO DAILY Multivitamin (Multi-Day Vitamins) 1 TAB PO DAILY (Reported) Oxycodone Hcl (Oxycodone Hcl) 1 CAP PO BID Pantoprazole Sodium (Pantoprazole Sodium) 40 MG PO DAILYAC Potassium Chloride (Klor-Con M10) 10 MEQ PO DAILYWBKFT Scheduled PRN Acetaminophen (Tylenol) 325 MG PO PRN Q6HRS PRN PRN PAIN / TEMP Docusate Sodium (Docusate Sodium) 1 CAP PO DAILY PRN PRN CONSTIPATION (Reported ) Miscellaneous Medications Lisinopril (Lisinopril) 20 MG PO (Reported) Discontinued Medications Ciprofloxacin Hcl (Cipro) 1 TAB PO BID FOLLOW UP APPOINTMENT: Dr. Reyna 1-2 week on PPI evalu Cardiology GI per direction continue PPI Time Spent Total time spent with patient [] minutes for coordination of care, counseling, and education. KYLE ASHLEY MD Nov 30, 2016 10:10
== END 2016-11-29 14:10 | DRG 291 ==
LOC: ER 18:32 → 2 NORTH 21:10
PROVIDERS: ADMIT Internal Medicine; ATTEND Internal Medicine
DX: I50.31 Acute diastolic (congestive) heart failure (principal); G93.40 Encephalopathy, unspecified; J96.00 Acute respiratory failure, unspecified whether with hypoxia or hypercapnia; E44.1 Mild protein-calorie malnutrition; J98.11 Atelectasis; N39.0 Urinary tract infection, site not specified; I11.0 Hypertensive heart disease with heart failure; E11.9 Type 2 diabetes mellitus without complications; E78.00 Pure hypercholesterolemia, unspecified; E78.5 Hyperlipidemia, unspecified; E83.42 Hypomagnesemia; E87.6 Hypokalemia; G47.33 Obstructive sleep apnea (adult) (pediatric); I25.10 Atherosclerotic heart disease of native coronary artery without angina pectoris; I27.2 Other secondary pulmonary hypertension; Z96.641 Presence of right artificial hip joint; Z96.651 Presence of right artificial knee joint; I48.0 Paroxysmal atrial fibrillation; I89.0 Lymphedema, not elsewhere classified; I34.0 Nonrheumatic mitral (valve) insufficiency; K80.20 Calculus of gallbladder without cholecystitis without obstruction; Z85.3 Personal history of malignant neoplasm of breast; Z87.01 Personal history of pneumonia (recurrent); Z90.710 Acquired absence of both cervix and uterus; I25.2 Old myocardial infarction; Z92.3 Personal history of irradiation; Z98.49 Cataract extraction status, unspecified eye; Z88.2 Allergy status to sulfonamides; Z88.5 Allergy status to narcotic agent; Z88.8 Allergy status to other drugs, medicaments and biological substances; Z79.84 Long term (current) use of oral hypoglycemic drugs; Z68.24 Body mass index [BMI] 24.0-24.9, adult
CPT/HCPCS: 36415; 71010; 74022; 74176; 76705; 78226; 80048; 80053; 80061; 80076; 81001; 82150; 82565; 83690; 83735; 83880; 84439; 84481; 84484; 84520; 85027; 85610; 85730; 87086; 87186; 87641; 93005; 93306; 94250; 94640; 94760; 96365; 96374; A9537; J0690; J1650; J1940; J2405; J2543; J3010; J7620; 99285-25

== ENCOUNTER → 2016-12-13 | Outpatient (CLI) | payer OTHER ==
[2016-11-29 10:45] VITALS: BP 124/62
[~2016-12-13] MED LIST changes: +FURO40TA4 PO; +IOHEXOL 300 MG/ML 100ML VIAL. IV ONE; +METF-620 PO; -METF10002 PO; +PANT40TA5 PO; +POTA10TA12 PO; +diphenhydrAMINE HCL 25 MG CAPSULE PO ONE
--- NOTE | 2016-12-13 12:02 | KCIC ---
CT soft tissue neck with contrast Indication: Enlarged lymph nodes and neck pain. Axial imaging through the soft tissues of the neck was performed after the administration of intravenous contrast. Sagittal and coronal reformations were also performed. PQRS STATEMENT One or more of the following individualized dose reduction techniques were utilized for this study: 1.Automated exposure control. 2.Adjustment of the mA and/orkVaccording to patient size. 3.Use of iterative reconstruction technique. No prior studies are available for comparison. The visualized intracranial structures are unremarkable. Posterior nasopharynx and oropharynx are unremarkable. Parapharyngeal fat planes are preserved. The epiglottis and larynx are unremarkable. There is a small low density in the left lobe of the thyroid measuring 7 millimeters in size. The parotid and submandibular glands are unremarkable. No definite jugulodigastric or posterior cervical lymphadenopathy is seen. No supraclavicular lymphadenopathy is identified. There are no fluid collections detected. There are extensive postsurgical changes identified in the cervical spine with anterior plate and screws extending from approximately C3 through C7. Impression: Essentially unremarkable CT of the soft tissues of the neck apart from a sub centimeter left lobe thyroid nodule. No definite cervical lymphadenopathy is identified. Electronically signed by: Ti Durant MD (Dec 13, 2016 12:01:08)
== END | disposition home or self-care (01) ==
LOC: KCIC CT 10:39
PROVIDERS: ATTEND Family Medicine
DX: R59.0 Localized enlarged lymph nodes (principal)
CPT/HCPCS: 70491; Q0163; Q9967

== ENCOUNTER → 2017-01-04 | Outpatient (CLI) | payer OTHER ==
[~2017-01-04] MED LIST changes: -IOHEXOL 300 MG/ML 100ML VIAL. IV ONE; -POTA10CA PO; +POTASSIUM CHLO10 MEQ PO; -diphenhydrAMINE HCL 25 MG CAPSULE PO ONE
--- NOTE | 2017-01-05 01:58 | PAIN ---
DATE OF SERVICE: 01/04/2017 DIAGNOSES: Cervical radiculopathy with cervical spinal stenosis and cervical post-laminectomy syndrome. HISTORY OF PRESENT ILLNESS: The patient is a 71-year-old female last seen on 08/27/2016. We had obtained a preapproval for her to have a cervical epidural steroid injection, however, she did not return to shelter, was unable to coordinate her transportation and she returns now with still significant pain in the base of the neck, bilateral shoulders, bilateral upper extremities, radiating to both arms, tingling and numbness in both pain. She has been dropping items frequently with the hands as well, somewhat worse on the right than the left, but still significant in both sides. The patient reports it awakens her from sleep at least 5-6 times at night. She is using a walker and it does affect her ability to walk using a walker ____ unable to put much weight on her upper extremities and it is aching and hurting as well. The patient reports pain is radiating to the mid upper back as well, which is better with heat and massage techniques, but still causing some significant headaches posteriorly as well. The patient is a resident at the [facility] and had a hip surgery and was revealed ____ on her last visit, but this is doing much better by her report. The patient reports pain is constant, shooting in the bilateral upper extremities, causes headaches. The patient reports oxycodone does help some. It causes her to be very sleepy. We did try Medrol Dosepak last time she was here and that helped significantly as well for about a week and a half. The patient reports no loss of motor function, but does have significant fatigability of the upper extremities, especially more on the right side than the left with pain traveling in the region there is a stabbing and shooting sensation, rates as 10 on a scale of 10, it is worse and 5 on a scale of 10, at its least. PHYSICAL EXAMINATION: VITAL SIGNS: The patient's blood pressure is 103/49, pulse 81, respirations are 18, temperature 98.1 degrees Fahrenheit, and weight is 159 pounds. GENERAL: The patient is awake, alert, oriented, appropriate, very pleasant demeanor. HEENT: Head shows normocephalic and atraumatic. Extraocular movements are intact and symmetrical. Oral cavity, mucous membranes are moist and pink. Dentition is intact. NECK: Shows anterior throat supple without palpable lymphadenopathy noted. Swallow reflex is symmetrical. CHEST: Shows normal on inspection. Breath sounds are clear to auscultation bilaterally. HEART: Shows S1 and S2 clear. No murmurs are auscultated. ABDOMEN: Soft, nontender, and nondistended. BACK: Shows spine grossly midline. Cervical paraspinous muscle shows some moderate tenderness to palpation throughout the upper, middle and lower distribution of paraspinous muscles bilaterally without radiation, also some tenderness into the bilateral superior medial and lateral trapezius, worse on the right than the left, without significant radiation, however. The patient reports no tenderness with forward flexion, but extension causes tenderness at the base of the neck and shoulders bilaterally. EXTREMITIES: Upper extremities show deep tendon reflexes 1+ in the biceps and triceps tendons. Motor exam is approximately 4 on a scale 5 with peer specialist strength, biceps and triceps flexion, but is symmetrical. PLAN: Options were discussed with the patient and the patient's old chart was reviewed as her current medication regimen updated. Current review of systems updated today as well. We will preauthorize the patient for a cervical epidural steroid injection as she was unable to return for her last appointment with this was preauthorized in August this year. We will try Medrol Dosepak again with instructions, side effects to be aware of, given with the patient and the patient's automobile drivers who is present with her today to take her back to her [facility]. We will communicate with [facility] as well as far as her return appointment, preauthorization pending for cervical epidural steroid injection. JAQUELINE FULLER MD DR: CORKY/abraham JOB#: [id number] / [id number]
== END | disposition home or self-care (01) ==
LOC: PNCL 09:23
PROVIDERS: ATTEND Anesthesiology
DX: M48.06 Spinal stenosis, lumbar region (principal); M96.1 Postlaminectomy syndrome, not elsewhere classified
CPT/HCPCS: G0463

== ENCOUNTER → 2017-01-25 | Outpatient (CLI) | payer OTHER ==
[~2017-01-25] MED LIST changes: +IOHEXOL 180 MG/ML 10 ML VIAL. ONE; +methylPREDNISolone ACETATE 40 MG/ML VIAL. ONE; +methylPREDNISolone ACETATE 80 MG/ML VIAL. ONE
--- NOTE | 2017-01-26 03:23 | PAIN ---
DATE OF SERVICE: 01/25/2017 DIAGNOSES: Cervical radiculopathy with cervical spinal stenosis and post-cervical laminectomy syndrome. HISTORY OF PRESENT ILLNESS: The patient is a 71-year-old female who returns for followup status post evaluation and preauthorization for cervical epidural steroid injection. The patient reports still significant pain in the base of the neck and shoulders, radiating into the upper extremities with tingling and numbness in the hands, somewhat worse on the right than the left; it is aching, stabbing, radiating and stinging. The patient reports it as a 9 on a scale of 10 at its worst and it is a 6 on a scale of 10 currently today. The patient reports no new motor or sensory deficits. Still having some headaches in the posterior occipital region as well with the associated pain in the neck. The patient reports no new changes or other deficits. PHYSICAL EXAMINATION: VITAL SIGNS: Today, the patient's blood pressure is 140/70, pulse is 83, respirations 18, temperature 97.9 degrees Fahrenheit, weight is 158 pounds. GENERAL: The patient is awake, alert, oriented, appropriate, very pleasant demeanor. HEENT: Shows normocephalic and atraumatic. Extraocular movements are intact and symmetrical. Oral cavity shows mucous membranes are moist and pink. Dentition is intact. NECK: Shows anterior throat supple without palpable lymphadenopathy noted. Swallow reflex is symmetrical. CHEST: Normal on inspection. Breath sounds clear to auscultation bilaterally. HEART: Shows S1 and S2 clear. No murmurs auscultated. ABDOMEN: Soft, nontender, nondistended. No palpable organomegaly is noted. No rebound or guarding demonstrated. BACK: Shows spine grossly in the midline. Cervical paraspinous musculature shows some moderate tenderness with palpation. Well-healed surgical scars again noted in the posterior aspect of the cervical distribution. No radiation of pain with cervical palpation in the cervical paraspinous muscles, also in the superior, medial and lateral trapezius, slightly more tender on the right than the left, but without trigger points and without asymmetry. The patient does show good rotational motion of the cervical spine with some limitation in extension but not with forward flexion. Right and left lateral rotation past 45 degrees with only minor pain reported. EXTREMITIES: Upper extremities showed deep tendon reflexes at 1+ in the biceps and triceps tendons. Motor exam is approximately 4 on a scale of 5, but equal and strong with hybrid derivatives trader strength, biceps and triceps flexion and symmetrical. Options were discussed with the patient. The patient's old chart was reviewed as her current medication regimen and updated. Current review of systems is updated today as well. We will proceed with a cervical epidural steroid injection today with fluoroscopic guidance. Risks were again discussed including but not limited to bleeding, infection, possibility of epidural hematoma and subsequent neurological compromise, dural puncture, headaches, spinal cord and/or nerve damage, side effects of steroid medication and poor results regarding pain control. The patient understands and wishes to proceed. The patient will return to clinic in approximately 2 weeks for followup. She was counseled on her return appointment, activity level and side effects to be aware of. DIAGNOSIS: Cervical radiculopathy with cervical spinal stenosis and post-cervical laminectomy syndrome. PROCEDURE: Cervical epidural steroid injection in translaminar approach at the C6-C7 level using C-arm fluoroscopic guidance under sterile prep and drape using local anesthetic. MEDICATIONS INJECTED: Depo-Medrol 120 mg plus 5 mL of preservative-free normal saline and 2 mL of Isovue for contrast. CONDITION AT DISCHARGE: Stable. The patient tolerated the procedure well, had no complications. JAQUELINE FULLER MD DR: CORKY/abraham JOB#: [id number] / [id number]
== END | disposition home or self-care (01) ==
LOC: PNCL 10:51
PROVIDERS: ATTEND Anesthesiology
DX: M54.12 Radiculopathy, cervical region (principal); M48.02 Spinal stenosis, cervical region; M96.1 Postlaminectomy syndrome, not elsewhere classified; E78.00 Pure hypercholesterolemia, unspecified; I10 Essential (primary) hypertension; E11.9 Type 2 diabetes mellitus without complications; M19.90 Unspecified osteoarthritis, unspecified site; Z87.01 Personal history of pneumonia (recurrent); Z85.3 Personal history of malignant neoplasm of breast; Z96.651 Presence of right artificial knee joint; Z86.69 Personal history of other diseases of the nervous system and sense organs
CPT/HCPCS: 62321; J1030; J1040

== ENCOUNTER → 2017-02-08 | Outpatient (CLI) | payer OTHER ==
[~2017-02-08] MED LIST changes: +ASPI-612 PO; -ASPI81TA9 PO; -BUPR1PAT TD; +BUPR1PAT7 TD; +DICL100G18 TP; -DICL100G7 TP; +DOCU-109 PO; -DOCU-27 PO; +DOCU100C28 PO; -DOCU100C5 PO; -IOHEXOL 180 MG/ML 10 ML VIAL. ONE; -LEVO500T38 PO; +LEVO500T59 PO; +OXYC5CAP PO; -OXYC5CAP3 PO; -methylPREDNISolone ACETATE 40 MG/ML VIAL. ONE; -methylPREDNISolone ACETATE 80 MG/ML VIAL. ONE
--- NOTE | 2017-02-09 03:31 | PAIN ---
DATE OF SERVICE: 02/08/2017 PROGRESS NOTE FOR PAIN CLINIC DIAGNOSES: Cervical radiculopathy with cervical spinal stenosis and post-cervical laminectomy syndrome. HISTORY OF PRESENT ILLNESS: The patient is a 71-year-old female, who returns for followup status post cervical epidural steroid injection x 1. The patient reports about 75% improvement initially for the first few weeks in about 50% level now is still improved. The patient is very pleased with her progress thus far. The patient reports her pain is an 8 on a scale of 10 ____ much at all times, it was as high as a 10, but now as down to an 8. The patient reports some numbness and tingling in the bilateral upper extremities and hands. She has had previously little worse on the right than the left, but still without complete loss of sensory. She is having some difficulty with dropping items with the right hand, but she is right hand dominant and feels that ____ because she uses arm more. The patient reports the pain is sharp and shooting, radiating to bilateral upper extremities is noted again worse on the right side than the left to the hand with numbness and tingling in the arm and fingers. The patient reports no new motor or sensory deficits, no new changes. PHYSICAL EXAMINATION: VITAL SIGNS: Today, the patient's blood pressure 120/52, pulse 70, respirations 18, temperature is 98.3 degrees Fahrenheit, height is 5 feet 7 inches, weight 158 pounds. GENERAL: The patient is awake, alert, oriented, appropriate, very pleasant demeanor. HEENT: Head shows normocephalic, atraumatic. Extraocular movements are intact, symmetrical. Oral cavity, mucous membranes are moist and pink. Dentition is intact. NECK: Shows anterior throat supple without palpable lymphadenopathy noted. Swallow reflex is symmetrical. CHEST: Shows normal on inspection. Breath sounds clear to auscultation bilaterally. HEART: Shows S1 and S2 clear. No murmurs auscultated. ABDOMEN: Soft, nontender, nondistended. No palpable organomegaly is noted. No rebound or guarding demonstrated. BACK: Shows spine grossly midline. Cervical paraspinous musculature shows some well-healed surgical scar in the inferior aspect of the cervical distribution of paraspinous muscles shows roughly symmetrical on inspection without radiation. The patient shows some moderate tenderness with palpation bilaterally without asymmetry, no trigger points, no radiation ____ superior medial and lateral trapezius, slightly more tender on the right than the left and shows good rotational motion of the cervical spine, with limited extension, but not forward flexion and no pain reported with forward flexion. EXTREMITIES: Upper extremities showed deep tendon reflexes 1+ in the biceps and triceps tendons. Motor exam is approximately 4 on a scale 5 with vehicle return associate strength, which is equal and symmetrical. Options were discussed with the patient and the patient's old chart was reviewed as her current medication regimen updated. Current review of systems updated today as well and we will preauthorize the patient for a second cervical epidural steroid injection. She did very well with the first one. The pain is now returning to some extent, especially in the right upper extremity in radicular fashion. The patient will return to clinic in approximately 1 week. We will plan on second cervical epidural steroid injection at that time. JAQUELINE FULLER MD DR: CORKY/abraham JOB#: [id number] / [id number]
== END | disposition home or self-care (01) ==
LOC: PNCL 09:56
PROVIDERS: ATTEND Anesthesiology
DX: M48.06 Spinal stenosis, lumbar region (principal); M96.1 Postlaminectomy syndrome, not elsewhere classified
CPT/HCPCS: G0463

== ENCOUNTER 2017-02-15 15:18 | Emergency (ER) | payer OTHER ==
[~2017-02-15] VITALS: Ht 170.2 cm; Wt 73.5 kg
[2017-02-15] MEDS ORDERED: ONDANSETRON ODT 4 MG TAB.RAPDIS. PO ONE (16:00)
[2017-02-15] MEDS ORDERED: HYDROmorphone 2 MG/ML VIAL IM ONE (16:00)
[2017-02-15] MEDS ORDERED: predniSONE 20 MG TABLET PO ONE (16:00)
--- NOTE | 2017-02-15 16:15 | RAD ---
Two-view right hip study and AP view of the pelvis History: Right hip pain started 7 days ago. Findings: No acute fracture or osteolytic process or dislocation is seen. There is mild degenerative joint space narrowing and spurring of the right hip joint. Pincher-type femoral acetabular impingement may be present on the right side. No diastases of the symphysis pubis or either SI joint is seen. Surgical hardware is seen within the proximal left femur. IMPRESSION: No acute fracture. See discussion above.
--- NOTE | 2017-02-15 16:38 | PHYS DOC ---
Past Medical History Past Medical History: Cancer, Diabetes-Type II, High Cholesterol, Hypertension , [place], Other Additional Past Medical Histor: BREAST CA Past Surgical History: Hysterectomy, Other Additional Past Surgical Histo: BREAST LUMPECTOMY LEFT, TWO NECK SURGERIES Alcohol Use: None Drug Use: None Adult General Chief Complaint Chief Complaint: HIP PAIN HPI HPI Patient is a 71 year old female who presents with complaint of right hip pain. Patient has had worsening pain over the past week in her right hip. Patient denies any fall or injury to the right hip. The patient was brought to the emergency department by EMS from her custodial due to complaints of severe pain. Patient has history of fibromyalgia. Patient states that her pain starts on the lateral aspect of her right hip and towards her buttock. The pain travels down all the way towards her right foot. Patient denies any swelling to the affected extremity and denies fevers. Patient rates her pain currently is 10 out of 10. Patient has taken prescription medicine for her pain with no relief in symptoms. Review of Systems Review of Systems Constitutional: Denies fever or chills [] Eyes: Denies change in visual acuity, redness, or eye pain [] HENT: Denies nasal congestion or sore throat [] Respiratory: Denies cough or shortness of breath [] Cardiovascular: Denies chest pain or edema [] GI: Denies abdominal pain, nausea, vomiting, bloody stools or diarrhea [] : Denies dysuria or hematuria [] Musculoskeletal: Right hip pain [] Integument: Denies rash or skin lesions [] Neurologic: Denies headache, focal weakness or sensory changes [] Current Medications Current Medications Current Medications Medications (Trade) Dose Ordered Sig/Kianna Start Time Stop Time Status Last Admin Dose Admin Hydromorphone HCl (Dilaudid) 1 mg 1X ONCE 02/15/17 16:00 02/15/17 16:01 DC 02/15/17 16:09 1 MG Ondansetron HCl (Zofran Odt) 4 mg 1X ONCE 02/15/17 16:00 02/15/17 16:01 DC 02/15/17 16:09 4 MG Prednisone (Prednisone) 40 mg 1X ONCE 02/15/17 16:00 02/15/17 16:01 DC 02/15/17 16:09 40 MG Allergies Allergies Allergies Coded Allergies Type Severity Reaction Last Updated Verified Sulfa (Sulfonamide Antibiotics) Allergy Intermediate 04/19/14 Yes aspirin Allergy Intermediate 02/24/15 Yes morphine Allergy Intermediate 02/24/15 Yes trazodone Allergy Intermediate 02/24/15 Yes I S O L A T I O N *CONTACT* Allergy Unknown 11/23/16 Yes Iodinated Contrast- Oral and IV Dye Allergy Unknown Hives 12/13/16 Yes Physical Exam Physical Exam Constitutional: Alert, afebrile, appears in moderate to severe discomfort. [] HENT: Normocephalic, atraumatic, bilateral external ears normal, oropharynx moist, no oral exudates, nose normal. [] Eyes: PERRLA, EOMI, conjunctiva normal, no discharge. [] Neck: Normal range of motion, no tenderness, supple, no stridor. [] Cardiovascular:Heart rate regular rhythm, no murmur [] Lungs & Thorax: Bilateral breath sounds clear to auscultation [] Abdomen: Bowel sounds normal, soft, no tenderness, no masses, no pulsatile masses. [] Skin: Warm, dry, no erythema, no rash. [] Back: No tenderness, no CVA tenderness. [] Extremities: Right greater trochanteric tenderness to palpation, range of motion not tested secondary to pain, no soft tissue swelling to the right lower extremity, pulses 2+ distal to site of pain. [] Neurologic: Alert and oriented X 3, normal motor function, normal sensory function, no focal deficits noted. [] Current Patient Data Vital Signs Vital Signs Date Time Temp Pulse Resp B/P (MAP) Pulse Ox O2 Delivery O2 Flow Rate FiO2 02/15/17 16:42 70 19 124/65 (84) 94 Room Air 02/15/17 15:27 97.6 97.6 EKG EKG Not performed [] Radiology/Procedures Radiology/Procedures [facility] [address] [place], [place] [id number] IMAGING REPORT Signed PATIENT: BILL KHAN ACCOUNT: [id number] : 1945 LOCATION: ER AGE: 71 SEX: F EXAM STATUS: REG ER ORD. PHYSICIAN: JACKIE HAWLEY MD REASON: right hip pain PROCEDURE: HIP RIGHT 2V WITH PELVIS Two-view right hip study and AP view of the pelvis History: Right hip pain started 7 days ago. Findings: No acute fracture or osteolytic process or dislocation is seen. There is mild degenerative joint space narrowing and spurring of the right hip joint. Pincher-type femoral acetabular impingement may be present on the right side. No diastases of the symphysis pubis or either SI joint is seen. Surgical hardware is seen within the proximal left femur. IMPRESSION: No acute fracture. See discussion above. DICTATED and SIGNED BY: MARCELLE GARCIA MD DATE: 02/15/17 1610 CC: JACKIE HAWLEY MD; ANITA WILD MD ~ [] Course & Med Decision Making Course & Med Decision Making Pertinent Labs and Imaging studies reviewed. (See chart for details) Patient was given IM Dilaudid and prednisone in the emergency department with improvement pain. Patient's x-rays negative for acute injury. Patient will be continued on hydrocodone and Medrol Dosepak for treatment of right hip pain. Advise follow-up in 3-4 days with primary doctor for reevaluation and return to emergency department for any worsening symptoms. Patient voiced understanding and in agreement with treatment plan. Patient will be transferred back to her custodial upon discharge. Dragon Disclaimer Dragon Disclaimer This electronic medical record was generated, in whole or in part, using a voice recognition dictation system. Departure Departure Impression: Primary Impression: Right hip pain Disposition: 03 TRANSFER SNF Condition: IMPROVED Referrals: ANITA WILD MD (PCP) Patient Instructions: Hip Pain Additional Instructions: Follow-up with primary doctor in 3-4 days for reevaluation. Return to emergency department for any worsening symptoms. Scripts Methylprednisolone (MEDROL) 4 Mg Tab.ds.pk 1 PKG PO UD, #1 PKG Prov: JACKIE HAWLEY MD 02/15/17 Hydrocodone/Apap 5-325 (NORCO 5-325 TABLET) 1 Each Tablet 1 TAB PO Q6HRS Y for PAIN, #20 TAB 0 Refills Prov: JACKIE HAWLEY MD 02/15/17 JACKIE HAWLEY MD Feb 15, 2017 16:38
[2017-02-15 16:42] VITALS: BP 124/65
[2017-02-15] MEDS ORDERED: METH4TAB2 PO (16:58)
[2017-02-15] MEDS ORDERED: HYDR-971 PO (16:58)
== END 2017-02-15 17:21 | disposition home or self-care (01) ==
LOC: ER 15:18
DX: M25.551 Pain in right hip (principal); M79.7 Fibromyalgia; E11.9 Type 2 diabetes mellitus without complications; E78.00 Pure hypercholesterolemia, unspecified; I10 Essential (primary) hypertension; I25.2 Old myocardial infarction; Z90.710 Acquired absence of both cervix and uterus; Z88.6 Allergy status to analgesic agent; Z88.5 Allergy status to narcotic agent; Z88.2 Allergy status to sulfonamides; Z91.041 Radiographic dye allergy status; Z88.8 Allergy status to other drugs, medicaments and biological substances
CPT/HCPCS: 73502; 96372; 99284; J1170; J7512; Q0162

== ENCOUNTER → 2017-02-23 | Outpatient (CLI) | payer OTHER ==
[2016-11-29 10:45] VITALS: BP_SYST 124
[2017-02-15 16:42] VITALS: BP_DIAS 65
[~2017-02-23] MED LIST changes: +HYDR-971 PO; +IOHEXOL 180 MG/ML 20ML VIAL. ONE; +METH1ADH6 TP; +METH4TAB2 PO; +NYST15PO9 TP; +SPIR50TA PO; +methylPREDNISolone ACETATE 40 MG/ML VIAL. ONE; +methylPREDNISolone ACETATE 80 MG/ML VIAL. ONE
== END | disposition home or self-care (01) ==
LOC: PNCL 10:23
PROVIDERS: ATTEND Anesthesiology
DX: M54.12 Radiculopathy, cervical region (principal); M48.02 Spinal stenosis, cervical region; E78.00 Pure hypercholesterolemia, unspecified; I10 Essential (primary) hypertension; Z86.69 Personal history of other diseases of the nervous system and sense organs; Z87.01 Personal history of pneumonia (recurrent); Z90.710 Acquired absence of both cervix and uterus; Z85.3 Personal history of malignant neoplasm of breast; Z96.651 Presence of right artificial knee joint; Z96.641 Presence of right artificial hip joint; F17.200 Nicotine dependence, unspecified, uncomplicated; Z86.14 Personal history of Methicillin resistant Staphylococcus aureus infection; Z82.49 Family history of ischemic heart disease and other diseases of the circulatory system; Z88.2 Allergy status to sulfonamides; Z88.6 Allergy status to analgesic agent; Z91.041 Radiographic dye allergy status; Z79.82 Long term (current) use of aspirin
CPT/HCPCS: 62321; J1030; J1040

== ENCOUNTER → 2017-03-09 | Outpatient (CLI) | payer OTHER ==
[2017-02-15 16:42] VITALS: BP 124/65
[~2017-03-09] MED LIST changes: -IOHEXOL 180 MG/ML 20ML VIAL. ONE; -methylPREDNISolone ACETATE 40 MG/ML VIAL. ONE; -methylPREDNISolone ACETATE 80 MG/ML VIAL. ONE
== END | disposition home or self-care (01) ==
LOC: PNCL 10:53
PROVIDERS: ATTEND Anesthesiology
DX: M54.16 Radiculopathy, lumbar region (principal); M47.896 Other spondylosis, lumbar region; Z98.890 Other specified postprocedural states
CPT/HCPCS: G0463

== ENCOUNTER → 2017-03-23 | Outpatient (CLI) | payer OTHER ==
--- NOTE | 2017-03-23 12:19 | PAIN ---
DATE OF SERVICE: 03/23/2017 PROGRESS NOTE FOR PAIN CLINIC DIAGNOSES: Cervical radiculopathy with cervical spinal stenosis and post-cervical laminectomy syndrome. HISTORY OF PRESENT ILLNESS: The patient is a 71-year-old female who returns for followup status post cervical epidural steroid injections x 2. The patient reports approximately 75% improvement with each of the injections, but the pain is returning now in the neck and upper extremities. The patient reports it is worse on the left than the right, but still radiating pain into the forearms, shoulders and anterior and lateral aspect of the arm hand. Again, present bilaterally, but worse on the left side. The patient reports it did much better after the last injection, but she has been waiting for a preauthorization with her insurance provider for another injection, she has obtained this now and we will proceed with that today. The patient reports no new motor or sensory deficits, no new bowel or bladder incontinence or other complaints. Her pain is an 8 on a scale of 10 at its worst, is currently a 4 on a scale 10 today. The patient reports a sharp, shooting, aching and traveling pain as it was. The patient also complains of some low back pain, which has been helped with oxycodone in the past, but she has been on this for a significantly long time. We will once again recommend this to be changed to hydrocodone as she does better with this by her report. PHYSICAL EXAMINATION: VITAL SIGNS: Today, the patient's blood pressure is 122/46, pulse 87, respirations are 18, temperature is 97.8 degrees Fahrenheit, height is 5 feet 7 inches, weight 168 pounds. GENERAL: The patient is awake, alert, oriented, appropriate, very pleasant demeanor. HEENT: Head shows normocephalic, atraumatic. Extraocular movements are intact, symmetrical. Oral cavity, mucous membranes are moist and pink. Dentition is intact. NECK: Shows anterior throat supple without palpable lymphadenopathy noted. Swallow reflex is symmetrical. CHEST: Shows normal on inspection. Breath sounds are clear to auscultation bilaterally. HEART: Shows S1 and S2 clear. ABDOMEN: Soft, nontender, nondistended. No palpable organomegaly is noted. No rebound or guarding demonstrated. BACK: Shows spine grossly in the midline. The patient's neck shows cervical paraspinous musculature is symmetrical on inspection. Well-healed surgical scars again noted in the inferior aspect of the cervical distribution. The patient shows some guarding with rotational motion of the cervical spine as well as extension, but not with forward flexion. Palpation of paraspinous musculature is moderately tender bilaterally, but only diffusely in the middle and lower distribution of paraspinous muscles. EXTREMITIES: The patient's upper extremities showed deep tendon reflexes 1+ in the biceps and triceps tendons. Motor exam is approximately 4 on a scale 5 with hadoop admin, biceps and triceps flexion, but equal and symmetrical. Peripheral pulses are 1+ in the radial distribution bilaterally. No peripheral edema is noted. Options were discussed with the patient. The patient's old chart was reviewed as her current medication regimen and updated. Current review of systems updated today as well. We will proceed with a third in the series of cervical epidural steroid injection today with fluoroscopic guidance. Risks were again discussed including, but not limited to bleeding, infection, possibility of epidural hematoma, subsequent neurologic compromise, dural puncture, headaches, spinal cord and/or nerve damage, side effects of steroid medication and poor results regarding pain control. The patient understands and wishes to proceed. She will return to clinic in approximately 2 weeks for followup. She was counseled as to return appointment, activity level and side effects to be aware of. We will send recommendations for changing oxycodone to hydrocodone as she reports she does better with this and is probably developing some physiologic tolerance to the oxycodone. We send this recommendation to her [facility] where she resides. The patient is encouraged to increase her activity as tolerated as well. Continue physical therapy treatments as she has those at her nursing facility as well. DIAGNOSES: Cervical radiculopathy with cervical spinal stenosis and post-cervical laminectomy syndrome. PROCEDURE: Cervical epidural steroid injection using C-arm fluoroscopic guidance under sterile prep and drape using local anesthetic. MEDICATION INJECTED: A total of 120 mg Depo-Medrol plus 5 mL preservative-free normal saline and 2 mL of Isovue for contrast. CONDITION AT DISCHARGE: Stable. The patient tolerated the procedure well, had no complications. JAQUELINE FULLER MD DR: CORKY/abraham JOB#: [id number] / [id number]
== END | disposition home or self-care (01) ==
LOC: PNCL 09:48
PROVIDERS: ATTEND Anesthesiology
DX: M48.02 Spinal stenosis, cervical region (principal); M54.12 Radiculopathy, cervical region; M96.1 Postlaminectomy syndrome, not elsewhere classified; E78.00 Pure hypercholesterolemia, unspecified; I10 Essential (primary) hypertension; E11.9 Type 2 diabetes mellitus without complications; F17.200 Nicotine dependence, unspecified, uncomplicated; M19.90 Unspecified osteoarthritis, unspecified site; Z87.01 Personal history of pneumonia (recurrent); Z90.710 Acquired absence of both cervix and uterus; Z96.651 Presence of right artificial knee joint; Z86.69 Personal history of other diseases of the nervous system and sense organs; Z87.39 Personal history of other diseases of the musculoskeletal system and connective tissue; Z87.440 Personal history of urinary (tract) infections; Z88.2 Allergy status to sulfonamides; Z88.6 Allergy status to analgesic agent; Z91.041 Radiographic dye allergy status; Z79.82 Long term (current) use of aspirin; Z86.39 Personal history of other endocrine, nutritional and metabolic disease
CPT/HCPCS: 62321

== ENCOUNTER → 2017-03-24 | Outpatient (CLI) | payer OTHER ==
[~2017-03-24] MED LIST changes: +IOHEXOL 180 MG/ML 10 ML VIAL. ONE; +methylPREDNISolone ACETATE 40 MG/ML VIAL. ONE; +methylPREDNISolone ACETATE 80 MG/ML VIAL. ONE
--- NOTE | 2017-03-24 12:38 | RAD ---
INDICATION: Low back pain and right radiculopathy for 2 weeks. No prior surgery. TECHNIQUE: Sagittal T1, sagittal T2, sagittal STIR, axial T1, and axial T2 sequences are provided. Comparison is available. FINDINGS: There is 5 mm of anterolisthesis at L4-L5. There is 3 mm of anterolisthesis at L5-S1. There is no additional malalignment. There is no worrisome marrow lesion. There are Schmorl's nodes noted. There is minimal edema in the inferior endplate of S1. There is diffuse disc desiccation. There is mild narrowing of disc height at L4-L5. The conus medullaris is normal in signal intensity and in position. Minimal subcutaneous edema is noted. There is a retroaortic left renal vein which is a normal vascular variant. There are probable renal cysts up to 9 mm in diameter. The numbering system assumes 5 lumbar type vertebral bodies. Findings by individual level are as follows: L1-L2: There is facet hypertrophy with minimal foraminal narrowing. L2-L3: There is a disc bulge and mild facet hypertrophy. There is mild canal stenosis, midline AP diameter of the thecal sac 9 mm. There is [id number] right foraminal narrowing, spur from the facet joint contacts the exiting nerve root. There is mild left foraminal narrowing. L3-L4: Disc bulge and facet hypertrophy are noted with mild canal and foraminal compromise. L4-L5: In addition to the anterolisthesis there is a disc bulge and there is marked facet and ligamentum flavum hypertrophy. There is moderate to severe canal stenosis, midline AP diameter of the thecal sac 6 mm. There is mild to moderate lateral recess narrowing. Foraminal narrowing is moderate on the left and moderate to severe on the right. L5-S1: In addition to the slight anterolisthesis there is facet hypertrophy. There is no canal or foraminal compromise. IMPRESSION: Degenerative changes in the lumbar spine are greatest at L4-L5. Electronically signed by: Yogi Hayden MD (03/24/2017 12:35 PM) [id number]
== END | disposition home or self-care (01) ==
LOC: MRI 10:08
PROVIDERS: ATTEND Family Medicine
DX: M48.06 Spinal stenosis, lumbar region (principal); M51.16 Intervertebral disc disorders with radiculopathy, lumbar region; M47.896 Other spondylosis, lumbar region; M51.46 Schmorl's nodes, lumbar region
CPT/HCPCS: 72148; J1030; J1040

== ENCOUNTER 2017-10-09 21:34 | Emergency (ER) | payer OTHER ==
[2017-10-09] MEDS: IV NORMAL SALINE 1000ML BAG 1,000 ML IV ×2 (22:25)
[2017-10-09 22:31] LABS: BILIRUBIN,URINE NEGATIVE (NEG); CLARITY,URINE CLEAR; COLOR,URINE YELLOW; GLUCOSE,URINE NEGATIVE (NEG); NITRITE,URINE NEGATIVE (NEG); PROTEIN,URINE 100 mg/dL (NEG-TRACE); UROBILINOGEN,URINE 0.2 mg/dL (0.2 mg/dL)
[2017-10-09 22:42] LABS: ADD MAN DIFF? NO
[2017-10-09 22:43] LABS: BASO # 0.1 x10^3/uL (0.0-0.2); BASO % 1 % (0-3); EOS # 0.1 x10^3/uL (0.0-0.7); EOS % 1 % (0-3); HEMATOCRIT 41.9 % (36.0-47.0); HEMOGLOBIN 13.7 g/dL (12.0-15.5); LYMPH # 1.8 x10^3/uL (1.0-4.8); LYMPH % 17 % (24-48); MEAN CORPUSCULAR HEMOGLOBIN 29 pg (25-35); MEAN CORPUSCULAR HGB CONC 33 g/dL (31-37); MEAN CORPUSCULAR VOLUME 88 fL (79-100); MONO % 9 % (0-9); NEUT # 7.8 x10^3uL (1.8-7.7); NEUT % 73 % (31-73); PLATELET COUNT 193 x10^3/uL (140-400); RED BLOOD COUNT 4.76 x10^6/uL (3.50-5.40); RED CELL DISTRIBUTION WIDTH 14.6 % (11.5-14.5); WHITE BLOOD COUNT 10.6 x10^3/uL (4.0-11.0)
[2017-10-09 22:45] LABS: BACTERIA,URINE 0 /HPF (0-FEW); HYALINE CASTS, URINE FEW /HPF; SQUAMOUS EPITHELIAL CELL,UR FEW /LPF
[2017-10-09 22:48] LABS: RBC,URINE 0 /HPF (0-2)
[2017-10-09 22:52] LABS: ANION GAP 7 (6-14); BLOOD UREA NITROGEN 17 mg/dL (7-20); BUN/CREATININE RATIO 13 (6-20); CALCIUM 9.8 mg/dL (8.5-10.1); CARBON DIOXIDE 27 mmol/L (21-32); CHLORIDE 100 mmol/L (98-107); CREATININE 1.3 mg/dL (0.6-1.0); GFR 40.2; GLUCOSE 174 mg/dL (70-99); POTASSIUM 4.2 mmol/L (3.5-5.1); SODIUM 134 mmol/L (136-145)
[2017-10-09 23:00] LABS: ALBUMIN 3.1 g/dL (3.4-5.0); ALBUMIN/GLOBULIN RATIO 0.8 (1.0-1.7); ALK PHOS 118 U/L (46-116); ALT (SGPT) 39 U/L (14-59); AST (SGOT) 29 U/L (15-37); TOTAL BILIRUBIN 0.7 mg/dL (0.2-1.0); TOTAL PROTEIN 6.9 g/dL (6.4-8.2)
[2017-10-09 23:03] LABS: TROPONINI < 0.017 ng/mL (0.000-0.055)
[2017-10-09 23:06] LABS: THYROID STIM HORMONE (TSH) 4.014 uIU/mL (0.358-3.74)
== END 2017-10-10 00:26 | disposition home or self-care (01) ==
LOC: ER 10-10 00:26
DX: S09.90XA Unspecified injury of head, initial encounter (principal); R94.6 Abnormal results of thyroid function studies; R53.1 Weakness; E78.00 Pure hypercholesterolemia, unspecified; E11.9 Type 2 diabetes mellitus without complications; I10 Essential (primary) hypertension; I25.2 Old myocardial infarction; Z88.2 Allergy status to sulfonamides; Z88.5 Allergy status to narcotic agent; Z88.6 Allergy status to analgesic agent; Z91.041 Radiographic dye allergy status; Z88.8 Allergy status to other drugs, medicaments and biological substances; W18.39XA Other fall on same level, initial encounter; Y93.89 Activity, other specified; Y99.8 Other external cause status; Y92.89 Other specified places as the place of occurrence of the external cause
CPT/HCPCS: 36415; 70450; 71045; 72125; 72170; 80053; 81001; 84443; 84484; 85025; 93005; 96360; 96361; 99285-25; J7030